=== PATIENT | male | born 1930 | race Caucasian/White ===

== ENCOUNTER 2017-01-30 00:20 | Emergency (ER) | payer OTHER ==
[~2017-01-30] VITALS: Ht 170.2 cm; Wt 72.6 kg
--- NOTE | 2017-01-30 00:58 | PHYS DOC ---
Past Medical History Past Medical History: Hypertension Past Surgical History: No Surgical History Alcohol Use: None Drug Use: None Adult General Chief Complaint Chief Complaint: ABRASION HPI HPI Patient is a 86 year old male who was walking up a stair with his groceries in his hand when he actually lost his footing slipped and falling down one or 2 stairs landing on his gluteus john but tearing his skin on his elbow and left hand. Bleeding was well-controlled with direct pressure patient denies any loss of conscious, headache, neck pain or other symptoms. He has no blood thinning medications but he does live by himself. He is in good spirits complains of no pain or minimal pain over the injuries to his hands. His tetanus shot is not up-to-date. [place] Head CT rule not be used to make this patient a low risk because he is outside the H window appropriate for a screening. Patient will have a head CT completed , tetanus shot updated the wounds were cleaned and repaired. Review of Systems Review of Systems Constitutional: Denies fever or chills [] Eyes: Denies change in visual acuity, redness, or eye pain [] HENT: Denies nasal congestion or sore throat [] Respiratory: Denies cough or shortness of breath [] Cardiovascular: No additional information not addressed in HPI [] GI: Denies abdominal pain, nausea, vomiting, bloody stools or diarrhea [] : Denies dysuria or hematuria [] Musculoskeletal: Denies back pain or joint pain [] Integument: Denies rash or skin lesions [] Neurologic: Denies headache, focal weakness or sensory changes [] Endocrine: Denies polyuria or polydipsia [] Current Medications Current Medications Current Medications Medications (Trade) Dose Ordered Sig/Miguel Start Time Stop Time Status Last Admin Dose Admin Diphtheria/ Tetanus/Acell Pertussis (Boostrix) 0.5 ml ONCE ONCE 01/30/17 01:00 01/30/17 01:01 DC 01/30/17 01:39 0.5 ML Lidocaine HCl 20 ml 1X ONCE 01/30/17 01:00 01/30/17 01:01 DC 01/30/17 01:00 20 ML Allergies Allergies Allergies Coded Allergies Type Severity Reaction Last Updated Verified No Known Drug Allergies 01/30/17 No Physical Exam Physical Exam Noted hypertension Constitutional: Well developed, well nourished, no acute distress, non-toxic appearance. [] HENT: Normocephalic, atraumatic, bilateral external ears normal, oropharynx moist, no oral exudates, nose normal. [] Eyes: PERRLA, EOMI, conjunctiva normal, no discharge. [] Neck: Normal range of motion, no tenderness, supple, no stridor. [] Cardiovascular:Heart rate regular rhythm, no murmur [] Lungs & Thorax: Bilateral breath sounds clear to auscultation [] Abdomen: Bowel sounds normal, soft, no tenderness, no masses, no pulsatile masses. [] Skin: He has multiple skin tears at the elbow, left forearm, and the dorsum of the hand. He has a small skin laceration elliptical nature over the dorsum of the left hand involving the but only exposing the extensor carpi ulnaris . Through full range of motion the tendon is intact at a no numbness tingling to the hand and no weakness extension of the fingertips. Patient has normal sensation to light touch proprioception over the entire hand including the lumbricals. Patient has a small abrasion to the olecranon with no bony tenderness to palpation or obvious deformity. [] Back: No tenderness, no CVA tenderness. [] Extremities: No tenderness, no cyanosis, no clubbing, ROM intact, no edema. [] Neurologic: Alert and oriented X 3, normal motor function, normal sensory function, no focal deficits noted. [] Psychologic: Affect normal, judgement normal, mood normal. [] Current Patient Data Vital Signs Vital Signs Date Time Temp Pulse Resp B/P (MAP) Pulse Ox O2 Delivery O2 Flow Rate FiO2 01/30/17 00:41 98.6 61 16 238/99 (145) 97 Room Air 98.6 EKG EKG [] Radiology/Procedures Radiology/Procedures [] [facility] [address] [place], [place] [id number] IMAGING REPORT Signed PATIENT: PAULA DAILY ACCOUNT: [id number] : 1930 LOCATION: ER AGE: 86 SEX: M EXAM STATUS: REG ER ORD. PHYSICIAN: RADHA DUMONT MD REASON: fall; HEAD PAIN X TONIGHT PROCEDURE: CT HEAD WO CONTRAST INDICATION: pt fell; head pain COMPARISON: None. TECHNIQUE: Axial CT images obtained through the head without intravenous contrast. One or more of the following individualized dose reduction techniques were utilized for this examination: 1. Automated exposure control; 2. Adjustment of the mA and/or kV according to patient size; 3. Use of iterative reconstruction technique. FINDINGS: No intracranial hemorrhage. No midline shift. Basal cisterns patents. Ventricles and sulci are globally prominent. No acute osseous abnormality. Orbits and paranasal sinuses unremarkable. Scattered foci of low attenuation within the white matter. IMPRESSION: 1. No acute intracranial hemorrhage. 2. Scattered regions of low attenuation within the white matter. Non-specific in nature but frequently secondary to chronic small vessel ischemic disease. 3. Prominence of ventricles and sulci which is frequently secondary to age related volume loss. Electronically signed by: Rachael Mi MD (01/30/2017 1:41 AM) DICTATED and SIGNED BY: RACHAEL MI MD DATE: 01/30/17 0134 CC: RADHA DUMONT MD; NO PCP ~ 3 view hand film timed 1:12 AM 01/30/[address] Dumont demonstrates no subcutaneous days air there is a skin deficit over the middle portion of the fifth medic carpal no obvious foreign body no fracture of the joint or bone. Course & Med Decision Making Course & Med Decision Making Pertinent Labs and Imaging studies reviewed. (See chart for details) Reviewed patient's nursing notes, vital signs, the skin has had an x-ray of his hand as well as repair of his skin by the nurse practitioner. Patient is comfortable walking without issue vital signs are normal neuro exam is normal patient will be given precautions after a fall from standing. Impression: Hand laceration repaired with sutures, skin tears, long-standing hypertension. Disposition: PCP follow-up for suture removal in 10-14 days fall precautions given [] Dragon Disclaimer Dragon Disclaimer This electronic medical record was generated, in whole or in part, using a voice recognition dictation system. Departure Departure Impression: Primary Impression: Fall from standing Additional Impressions: Skin tear of elbow without complication Skin tear of hand without complication Skin tear of forearm without complication Laceration Disposition: HOME, SELF-CARE Condition: IMPROVED Referrals: NO PCP (PCP) Patient Instructions: Fall Prevention and Home Safety, Laceration Care, Adult, Skin Tear Care Additional Instructions: Please return for any signs of infection or if you have any questions or concerns. Please return for any headache change in mental status or feel any question concerns about your care. He sutures will need to be removed in 10-14 days by her primary care doctor or he may return here we will evaluate the wound and move the sutures for you if you are not able to arrange follow-up. Scripts Bacitracin (Bacitracin) 28.4 Gm Oint...g. 28.4 GM TP TID for 7 Days, [facility] Prov: RADHA DUMONT MD 01/30/17 Laceration/Wound Repair Laceration/Wound Repair : Wound Location: upper extremity Wound's Depth, Shape: superficial Wound Length (cm): 3 Wound Explored: clean Irrigated w/ Saline (ccs): 250 Betadine Prep?: Yes Volume Anesthetic (ccs): 4 Wound Repaired With: sutures Suture Size/Type: 5:0, nylon Number of Sutures: 4 Progress Left hand laceration noted over the fifth metacarpal area was injected with 2% lidocaine plain with approximately 3-4 mL. Site had been irrigated with 250 mL of normal saline. 5-0 nylon was used to suture the area with 4 interrupted sutures placed by Mar Barry NP. Patient tolerated the procedure well. Dressing applied by nursing staff. Problem Qualifiers RADHA DUMONT MD Jan 30, 2017 00:58 NATA BARRY APRN Jan 30, 2017 01:29
[2017-01-30] MEDS ORDERED: LIDOCAINE 2% 20 ML VIAL. IJ ONE (01:00)
[2017-01-30] MEDS ORDERED: DIPHTH,PERTUSS(ACELL),TET TOX 0.5 ML DISP.SYRIN. VAX IM ONE (01:00)
--- NOTE | 2017-01-30 01:45 | RAD ---
INDICATION: pt fell; head pain COMPARISON: None. TECHNIQUE: Axial CT images obtained through the head without intravenous contrast. One or more of the following individualized dose reduction techniques were utilized for this examination: 1. Automated exposure control; 2. Adjustment of the mA and/or kV according to patient size; 3. Use of iterative reconstruction technique. FINDINGS: No intracranial hemorrhage. No midline shift. Basal cisterns patents. Ventricles and sulci are globally prominent. No acute osseous abnormality. Orbits and paranasal sinuses unremarkable. Scattered foci of low attenuation within the white matter. IMPRESSION: 1. No acute intracranial hemorrhage. 2. Scattered regions of low attenuation within the white matter. Non-specific in nature but frequently secondary to chronic small vessel ischemic disease. 3. Prominence of ventricles and sulci which is frequently secondary to age related volume loss. Electronically signed by: Tre Heredia MD (01/30/2017 1:41 AM)
[2017-01-30] MEDS ORDERED: BACI28.43 TP (02:13)
[2017-01-30 02:30] VITALS: BP 223/86
--- NOTE | 2017-01-30 07:29 | RAD ---
Left hand, 3 views, 01/30/2017: History: Fall, pain, abrasion There are mild degenerative changes at scattered in the phalangeal joints and the first CMC joint. No acute fracture or dislocation is identified. There is mild soft tissue deformity in the metacarpal region near the fifth metacarpal. IMPRESSION: No acute bony abnormality is detected.
== END 2017-01-30 02:34 | disposition home or self-care (01) ==
LOC: ER 00:20
DX: S61.412A Laceration without foreign body of left hand, initial encounter (principal); S51.012A Laceration without foreign body of left elbow, initial encounter; S51.812A Laceration without foreign body of left forearm, initial encounter; I10 Essential (primary) hypertension; W10.9XXA Fall (on) (from) unspecified stairs and steps, initial encounter; Y93.01 Activity, walking, marching and hiking; Y92.89 Other specified places as the place of occurrence of the external cause; Y99.8 Other external cause status
CPT/HCPCS: 12002; 70450; 73130; 90471; 90715; 99284-25

== ENCOUNTER 2017-02-12 15:39 | Emergency (ER) | payer MEDICARE, OTHER ==
[~2017-02-12] VITALS: Ht 167.6 cm; Wt 72.6 kg
[~2017-02-12 15:39] MED LIST: BACI28.43 TP
[2017-02-12 15:51] VITALS: BP 154/72
--- NOTE | 2017-02-12 16:01 | PHYS DOC ---
Past Medical History Past Medical History: Hypertension Past Surgical History: No Surgical History Alcohol Use: None Drug Use: None Adult General Chief Complaint Chief Complaint: SUTURE/STAPLE REMOVAL HPI HPI Patient is a 86 year old male who presents today with for suture removal from the left hand. Patient states he has had the sutures since January 30, 2017. Review of Systems Review of Systems Constitutional: Denies fever or chills [] Eyes: Denies change in visual acuity, redness, or eye pain [] Musculoskeletal: Denies back pain or joint pain [] Integument: suture removal from the left hand Neurologic: Denies headache, focal weakness or sensory changes [] Endocrine: Denies polyuria or polydipsia [] Allergies Allergies Allergies Coded Allergies Type Severity Reaction Last Updated Verified No Known Drug Allergies 01/30/17 No Physical Exam Physical Exam Constitutional: Well developed, well nourished, no acute distress, non-toxic appearance. [] Skin: Left dorsal hand with a scabbed over laceration site. Laceration site is well approximated. There is no signs of infection over the laceration site. The laceration site has what appears to be 3 sutures. Back: No tenderness, no CVA tenderness. [] Extremities: No tenderness, no cyanosis, no clubbing, ROM intact, no edema. [] Neurologic: Alert and oriented X 3, normal motor function, normal sensory function, no focal deficits noted. [] Psychologic: Affect normal, judgement normal, mood normal. [] EKG EKG [] Radiology/Procedures Radiology/Procedures [] Course & Med Decision Making Course & Med Decision Making Pertinent Labs and Imaging studies reviewed. (See chart for details) I removed three sutures from patient's dorsal left hand. Laceration site is well approximated, no signs of infection. Patient is to follow-up with the primary care doctor as needed. Dragon Disclaimer Dragon Disclaimer This electronic medical record was generated, in whole or in part, using a voice recognition dictation system. Departure Departure Impression: Primary Impression: Visit for suture removal Disposition: 01 HOME, SELF-CARE Condition: STABLE Referrals: NO PCP (PCP) follow up with your doctor as needed Patient Instructions: Suture Removal-Brief Additional Instructions: We removed stitches from your left hand. Keep the area clean and dry, do not cover the area and the seats draining. Continue putting triple antibiotic ointment to the area twice a day. MUTUNGA,TIFFANIE EMERGENCY PLANNER Feb 12, 2017 16:01
== END 2017-02-12 16:13 | disposition home or self-care (01) ==
LOC: ER 15:39
DX: S61.412D Laceration without foreign body of left hand, subsequent encounter (principal); I10 Essential (primary) hypertension; X58.XXXD Exposure to other specified factors, subsequent encounter; Y92.89 Other specified places as the place of occurrence of the external cause; Y99.8 Other external cause status
CPT/HCPCS: 99281

== ENCOUNTER 2018-05-19 14:42 | Inpatient (IN) | payer MEDICARE, OTHER ==
[~2018-05-19] VITALS: Ht 170.2 cm; Wt 70.3 kg
--- NOTE | 2018-05-19 15:07 | PHYS DOC ---
Past Medical History Past Medical History: Hypertension Past Surgical History: No Surgical History Alcohol Use: None Drug Use: None Adult General Chief Complaint Chief Complaint: COUGH HPI HPI Patient is a 87 year old male with a history of HTN presents to the ED complaining of cough x 1.5 weeks. States the cough is productive. States he has been taking otc medications without improvement. Associated symptoms include subjective fever, sore throat and ear pain. Denies weakness, dizziness, rash, chest pain, abdominal pain, nausea/vomiting, blood in stool or diarrhea. Review of Systems Review of Systems Constitutional: Complains of subjective fever. Denies chills [] Eyes: Denies change in visual acuity, redness, or eye pain [] HENT: Complains of congestion and sore throat. Respiratory: Complains of cough. Denies shortness of breath. Cardiovascular: No additional information not addressed in HPI [] GI: Denies abdominal pain, nausea, vomiting, bloody stools or diarrhea [] : Denies dysuria or hematuria [] Musculoskeletal: Denies back pain or joint pain [] Integument: Denies rash or skin lesions [] Neurologic: Denies headache, focal weakness or sensory changes [] All other systems were reviewed and found to be within normal limits, except as documented in this note. Current Medications Current Medications Allergies Allergies Allergies Coded Allergies Type Severity Reaction Last Updated Verified No Known Drug Allergies 01/30/17 No Physical Exam Physical Exam Constitutional: Well developed, well nourished, no acute distress, non-toxic appearance. [] HENT: Normocephalic, atraumatic, bilateral external ears normal, oropharynx moist, no oral exudates, nose normal. [] Eyes: PERRLA, EOMI, conjunctiva normal, no discharge. [] Neck: Normal range of motion, no tenderness, supple, no stridor. [] Cardiovascular:Heart rate regular rhythm, no murmur [] Lungs & Thorax: Bilateral breath sounds clear to auscultation. productive cough. [] Abdomen: Bowel sounds normal, soft, no tenderness, no masses, no pulsatile masses. [] Skin: Warm, dry, no erythema, no rash. [] Back: No tenderness, no CVA tenderness. [] Extremities: No tenderness, no cyanosis, no clubbing, ROM intact, no edema. [] Neurologic: Alert and oriented X 3, normal motor function, normal sensory function, no focal deficits noted. [] Psychologic: Affect normal, judgement normal, mood normal. [] Current Patient Data Vital Signs Vital Signs Date Time Temp Pulse Resp B/P (MAP) Pulse Ox O2 Delivery O2 Flow Rate FiO2 05/19/18 16:30 72 16 127/57 (80) 95 Room Air 05/19/18 14:45 98.3 98.3 Lab Values Laboratory Tests Test 05/19/18 15:35 White Blood Count 15.1 x10^3/uL (4.0-11.0) H Red Blood Count 3.44 x10^6/uL (4.30-5.70) L Hemoglobin 10.9 g/dL (13.0-17.5) L Hematocrit 31.3 % (39.0-53.0) L Mean Corpuscular Volume 91 fL (79-100) Mean Corpuscular Hemoglobin 32 pg (25-35) Mean Corpuscular Hemoglobin Concent 35 g/dL (31-37) Red Cell Distribution Width 12.8 % (11.5-14.5) Platelet Count 239 x10^3/uL (140-400) Neutrophils (%) (Auto) 83 % (31-73) H Lymphocytes (%) (Auto) 7 % (24-48) L Monocytes (%) (Auto) 9 % (0-9) Eosinophils (%) (Auto) 1 % (0-3) Basophils (%) (Auto) 0 % (0-3) Neutrophils # (Auto) 12.6 x10^3uL (1.8-7.7) H Lymphocytes # (Auto) 1.1 x10^3/uL (1.0-4.8) Monocytes # (Auto) 1.3 x10^3/uL (0.0-1.1) H Eosinophils # (Auto) 0.1 x10^3/uL (0.0-0.7) Basophils # (Auto) 0.1 x10^3/uL (0.0-0.2) Segmented Neutrophils % 82 % (35-66) H Band Neutrophils % 3 % (0-9) Lymphocytes % 8 % (24-48) L Monocytes % 5 % (0-10) Eosinophils % 2 % (0-5) Platelet Estimate Adequate (ADEQUATE) Sodium Level 134 mmol/L (136-145) L Potassium Level 4.2 mmol/L (3.5-5.1) Chloride Level 98 mmol/L (98-107) Carbon Dioxide Level 22 mmol/L (21-32) Anion Gap 14 (6-14) Blood Urea Nitrogen 47 mg/dL (8-26) H Creatinine 2.4 mg/dL (0.7-1.3) H Estimated GFR (Cockcroft-Gault) 25.8 BUN/Creatinine Ratio 20 (6-20) Glucose Level 130 mg/dL (70-99) H Calcium Level 8.3 mg/dL (8.5-10.1) L Total Bilirubin 0.9 mg/dL (0.2-1.0) Aspartate Amino Transferase (AST) 17 U/L (15-37) Alanine Aminotransferase (ALT) 20 U/L (16-63) Alkaline Phosphatase 91 U/L (46-116) Troponin I Quantitative < 0.017 ng/mL (0.000-0.055) Total Protein 5.7 g/dL (6.4-8.2) L Albumin 2.5 g/dL (3.4-5.0) L Albumin/Globulin Ratio 0.8 (1.0-1.7) L Lipase 80 U/L (73-393) Laboratory Tests 05/19/18 15:35 Laboratory Tests 05/19/18 15:35 EKG EKG [] Radiology/Procedures Radiology/Procedures REASON: pneumonia PROCEDURE: CHEST AP ONLY Portable chest, 05/19/2018: HISTORY: Pneumonia, shortness of breath No previous chest radiographs are available at this time for comparison purposes. The heart size and pulmonary vascularity are normal. There is calcific plaquing the aorta. There is scarring over the pulmonary apices. Minimal hazy atelectasis/infiltrate is present in the right base. The left lung is clear. There is no evidence of pleural fluid. IMPRESSION: Minimal right basilar atelectasis/infiltrate. [] Course & Med Decision Making Course & Med Decision Making Pertinent Labs and Imaging studies reviewed. (See chart for details) Rocephin and doxycycline given in the ED. Patient well appearing. Will admit for pneumonia and TU evaluation. Discussed case with hospitalist, Dr. Mcallister. Agrees to admission and further management of patient. Patient stable for admission. Dragon Disclaimer Dragon Disclaimer This electronic medical record was generated, in whole or in part, using a voice recognition dictation system. Departure Departure Impression: Primary Impression: Pneumonia Disposition: ADMITTED INPATIENT Admitting Physician: Victoriano Sapp Condition: STABLE Referrals: NO PCP (PCP) IDALMIS CAMPBELL May 19, 2018 15:07
[2018-05-19 15:52] LABS: BASO # 0.1 x10^3/uL (0.0-0.2); BASO % 0 % (0-3); EOS # 0.1 x10^3/uL (0.0-0.7); EOS % 1 % (0-3); HEMATOCRIT 31.3 % (39.0-53.0); HEMOGLOBIN 10.9 g/dL (13.0-17.5); LYMPH # 1.1 x10^3/uL (1.0-4.8); LYMPH % 7 % (24-48); MEAN CORPUSCULAR HEMOGLOBIN 32 pg (25-35); MEAN CORPUSCULAR HGB CONC 35 g/dL (31-37); MEAN CORPUSCULAR VOLUME 91 fL (79-100); MONO # 1.3 x10^3/uL (0.0-1.1); MONO % 9 % (0-9); NEUT # 12.6 x10^3uL (1.8-7.7); NEUT % 83 % (31-73); PLATELET COUNT 239 x10^3/uL (140-400); RED BLOOD COUNT 3.44 x10^6/uL (4.30-5.70); RED CELL DISTRIBUTION WIDTH 12.8 % (11.5-14.5); WHITE BLOOD COUNT 15.1 x10^3/uL (4.0-11.0)
--- NOTE | 2018-05-19 16:03 | RAD ---
Portable chest, 05/19/2018: HISTORY: Pneumonia, shortness of breath No previous chest radiographs are available at this time for comparison purposes. The heart size and pulmonary vascularity are normal. There is calcific plaquing the aorta. There is scarring over the pulmonary apices. Minimal hazy atelectasis/infiltrate is present in the right base. The left lung is clear. There is no evidence of pleural fluid. IMPRESSION: Minimal right basilar atelectasis/infiltrate. Electronically signed by: Bryan Lawrence MD (05/19/2018 3:59 PM) [facility]
[2018-05-19 16:04] LABS: CALCIUM 8.3 mg/dL (8.5-10.1); CREATININE 2.4 mg/dL (0.7-1.3); GFR 25.8; POTASSIUM 4.2 mmol/L (3.5-5.1)
[2018-05-19 16:10] LABS: ALBUMIN 2.5 g/dL (3.4-5.0); ALBUMIN/GLOBULIN RATIO 0.8 (1.0-1.7); TOTAL BILIRUBIN 0.9 mg/dL (0.2-1.0); TOTAL PROTEIN 5.7 g/dL (6.4-8.2)
--- NOTE | 2018-05-19 16:25 | EKG ---
[facility] [address] [place] [id number] Test Date: 2018-05-19 Test Time: 15:18:02 Pat Name: PAULA DAILY Department: Room: Gender: M Cutting Machine Operator Helper: : 1930 Requested By: IDALMIS CAMPBELL Order Number: [id number] Reading MD: Vidal Grant MD Measurements Intervals [place] Rate: 77 P: 34 ND: 196 QRS: 14 QRSD: 90 T: 41 QT: 366 QTc: 416 Interpretive Statements SINUS RHYTHM Electronically Signed On 05-20-2018 12:28:51 CDT by Vidal Grant MD
[2018-05-19] MEDS ORDERED: ACETAMINOPHEN 325 MG TABLET. PO PRN ×2 (16:45→21:45)
[2018-05-19] MEDS ORDERED: fentaNYL PF VIAL 100 MCG/2 ML VIAL IV PRN (16:45)
[2018-05-19] MEDS ORDERED: DOXYCYCLINE HYCLATE 100 MG in IV DEXTROSE 5% 100ML 100 ML IV ONE (16:45)
[2018-05-19] MEDS ORDERED: ONDANSETRON PF 4 MG/2 ML VIAL. IV PRN ×2 (16:45→21:45)
[2018-05-19 16:49] LABS: % BANDS 3 % (0-9); % EOS 2 % (0-5); % LYMPHS 8 % (24-48); % MONOS 5 % (0-10); % SEGS 82 % (35-66); PLT ESTIMATE ADEQUATE (ADEQUATE)
[2018-05-19 18:25] VITALS: BP 143/52
[2018-05-19 18:25] LABS: INFLUENZA A PATIENT NEGATIVE (NEGATIVE); INFLUENZA B PATIENT NEGATIVE (NEGATIVE)
[2018-05-19] MEDS ORDERED: no home medications (18:49)
[2018-05-19 19:00] VITALS: BP 136/62
[2018-05-19 20:22] LABS: BILIRUBIN,URINE NEGATIVE (NEG); CLARITY,URINE CLEAR; COLOR,URINE YELLOW; NITRITE,URINE NEGATIVE (NEG); PROTEIN,URINE 100 mg/dL (NEG-TRACE)
[2018-05-19 20:35] LABS: SQUAMOUS EPITHELIAL CELL,UR OCC /LPF
[2018-05-19 20:36] LABS: AMORPHOUS SEDIMENT,UR PRESENT /HPF; BACTERIA,URINE FEW /HPF (0-FEW); HYALINE CASTS, URINE MODERATE /HPF; RBC,URINE 0 /HPF (0-2); WBC,URINE OCC /HPF (0-4)
--- NOTE | 2018-05-19 21:28 | PDOC1 ---
History and Physical Date of Admission Date of Admission DATE: 05/19/18 TIME: 21:28 Identification/Chief Complaint Chief Complaint presentED to the ED complaining of cough x 1.5 weeks. cough is productive. he has been taking otc medications without improvement. subjective fever, sore throat and ear pain. Denies weakness, dizziness, rash, chest pain, abdominal pain, nausea/vomiting, blood in stool or diarrhea. 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 GI: No pertinent hx ENT: No pertinent hx Dermatology: No pertinent hx Family History Family History: Hypertension Social History Smoke: No ALCOHOL: none Drugs: None Current Problem List Problem List Problems Medical Problems: (1) Pneumonia Status: Acute Current Medications Current Medications Current Medications Ceftriaxone Sodium 50 ml @ 100 mls/hr 1X ONCE IV Last administered on at 17:03; Start 05/19/18 at 16:45; Stop 05/19/18 at 17:14; Status DC Doxycycline Hyclate 100 mg/ Dextrose 100 ml @ 50 mls/hr 1X ONCE IV Last administered on 05/19/18at 17:38; Start 05/19/18 at 16:45; Stop 05/19/18 at 18:44 ; Status DC Ondansetron HCl (Zofran) 4 mg PRN Q8HRS PRN IV NAUSEA/VOMITING; Start 05/19/18 at 16:45; Stop 05/20/18 at 16:44 Fentanyl Citrate (Fentanyl 2ml Vial) 50 mcg PRN Q2HR PRN IV PAIN; Start at 16:45; Stop 05/20/18 at 16:44 Acetaminophen (Tylenol) 650 mg PRN Q4HRS PRN PO FEVER; Start 05/19/18 at 16:45 ; Stop 05/20/18 at 16:44 Influenza Virus Vaccine (Afluria Trivalent [id number] Syringe) 0.5 ml ONCE ONCE VAX IM Last administered on 05/19/18at 20:07; Start 05/19/18 at 21:00; Stop 05/19/18 at 21:01; Status DC Active Scripts Active Reported [no home medications] Allergies Allergies: Coded Allergies: No Known Drug Allergies (Unverified , 01/30/17) ROS Review of System Review of Systems Review of Systems Constitutional: Complains of subjective fever. NO chills [] Eyes: Denies change in visual acuity, redness, or eye pain [] HENT: Complains of congestion and sore throat. Respiratory: Complains of cough. Denies shortness of breath. Cardiovascular: No additional information not addressed in HPI [] GI: Denies abdominal pain, nausea, vomiting, bloody stools or diarrhea [] : Denies dysuria or hematuria [] Musculoskeletal: Denies back pain or joint pain [] Integument: Denies rash or skin lesions [] Neurologic: Denies headache, focal weakness or sensory changes [] 14 PT systems were reviewed and found to be within normal limits, except as documented General: YES: Fatigue Eyes: No Blurry vision, No Decreased vision, No Double vision, No Dry eyes, No Excessive tearing, No Eye Pain, No Itchy Eyes, No Loss of vision, No Photophobia , No Scotomata, No Uses contacts, No Uses glasses, No Other ENDOCRINE: No: Breast Changes, Galactorrhea, Hair Pattern Changes, Hot Flashes , Malaise/lethargy, Mood Swings, Palpitations, Polydipsia/polyuria, Skin Changes , Temperature Intolerance, Unexpected Weight Changes, Other Physical Exam Physical Exam Physical Exam Physical Exam Constitutional: Well developed, well nourished, no acute distress, non-toxic appearance. [] HENT: Normocephalic, atraumatic, bilateral external ears normal, oropharynx moist, no oral exudates, nose normal. [] Eyes: PERRLA, EOMI, conjunctiva normal, no discharge. [] Neck: Normal range of motion, no tenderness, supple, no stridor. [] Cardiovascular:Heart rate regular rhythm, no murmur [] Lungs & Thorax: Bilateral CRACKLES productive cough. [] Abdomen: Bowel sounds normal, soft, no tenderness, no masses, no pulsatile masses. [] Skin: Warm, dry, no erythema, no rash. [] Back: No tenderness, no CVA tenderness. [] Extremities: No tenderness, no cyanosis, no clubbing, ROM intact, no edema. [] Neurologic: Alert and oriented X 3, normal motor function, normal sensory function, no focal deficits noted. [] Psychologic: Affect normal, judgement normal, mood normal. [] General: Alert, Oriented X3, Cooperative HEENT: Atraumatic, PERRLA Lungs: Other (BASILAR CRACKLES) Heart: other (GR 2/6 KIRAN) Breasts: Not examined Abdomen: Normal bowel sounds, Soft Rectal Exam: not examined Extremities: No cyanosis Skin: No breakdown, No significant lesion Neuro: Normal speech, Cranial nerves 3-12 NL Vitals Vitals Vital Signs Date Time Temp Pulse Resp B/P (MAP) Pulse Ox O2 Delivery O2 Flow Rate FiO2 05/19/18 19:00 97.2 78 18 136/62 (86) 94 Room Air 97.2 Labs Labs Laboratory Tests Test 05/19/18 15:35 05/19/18 17:27 05/19/18 20:08 White Blood Count 15.1 x10^3/uL (4.0-11.0) Red Blood Count 3.44 x10^6/uL (4.30-5.70) Hemoglobin 10.9 g/dL (13.0-17.5) Hematocrit 31.3 % (39.0-53.0) Mean Corpuscular Volume 91 fL (79-100) Mean Corpuscular Hemoglobin 32 pg (25-35) Mean Corpuscular Hemoglobin Concent 35 g/dL (31-37) Red Cell Distribution Width 12.8 % (11.5-14.5) Platelet Count 239 x10^3/uL (140-400) Neutrophils (%) (Auto) 83 % (31-73) Lymphocytes (%) (Auto) 7 % (24-48) Monocytes (%) (Auto) 9 % (0-9) Eosinophils (%) (Auto) 1 % (0-3) Basophils (%) (Auto) 0 % (0-3) Neutrophils # (Auto) 12.6 x10^3uL (1.8-7.7) Lymphocytes # (Auto) 1.1 x10^3/uL (1.0-4.8) Monocytes # (Auto) 1.3 x10^3/uL (0.0-1.1) Eosinophils # (Auto) 0.1 x10^3/uL (0.0-0.7) Basophils # (Auto) 0.1 x10^3/uL (0.0-0.2) Segmented Neutrophils % 82 % (35-66) Band Neutrophils % 3 % (0-9) Lymphocytes % 8 % (24-48) Monocytes % 5 % (0-10) Eosinophils % 2 % (0-5) Platelet Estimate Adequate (ADEQUATE) Sodium Level 134 mmol/L (136-145) Potassium Level 4.2 mmol/L (3.5-5.1) Chloride Level 98 mmol/L (98-107) Carbon Dioxide Level 22 mmol/L (21-32) Anion Gap 14 (6-14) Blood Urea Nitrogen 47 mg/dL (8-26) Creatinine 2.4 mg/dL (0.7-1.3) Estimated GFR (Cockcroft-Gault) 25.8 BUN/Creatinine Ratio 20 (6-20) Glucose Level 130 mg/dL (70-99) Calcium Level 8.3 mg/dL (8.5-10.1) Total Bilirubin 0.9 mg/dL (0.2-1.0) Aspartate Amino Transf (AST/SGOT) 17 U/L (15-37) Alanine Aminotransferase (ALT/SGPT) 20 U/L (16-63) Alkaline Phosphatase 91 U/L (46-116) Troponin I Quantitative < 0.017 ng/mL (0.000-0.055) Total Protein 5.7 g/dL (6.4-8.2) Albumin 2.5 g/dL (3.4-5.0) Albumin/Globulin Ratio 0.8 (1.0-1.7) Lipase 80 U/L (73-393) Influenza Type A Antigen Negative (NEGATIVE) Influenza Type B Antigen Negative (NEGATIVE) Urine Collection Type Unknown Urine Color Yellow Urine Clarity Clear Urine pH 5.0 Urine Specific [place] 1.020 Urine Protein 100 mg/dL (NEG-TRACE) Urine Glucose (UA) Negative mg/dL (NEG) Urine Ketones (Stick) Trace mg/dL (NEG) Urine Blood Trace (NEG) Urine Nitrite Negative (NEG) Urine Bilirubin Negative (NEG) Urine Urobilinogen Dipstick 1.0 mg/dL (0.2 mg/dL) Urine Leukocyte Esterase Negative (NEG) Urine RBC 0 /HPF (0-2) Urine WBC Occ /HPF (0-4) Urine Squamous Epithelial Cells Occ /LPF Urine Amorphous Sediment Present /HPF Urine Bacteria Few /HPF (0-FEW) Urine Hyaline Casts Moderate /HPF Urine Mucus Mod /LPF Laboratory Tests Test 05/19/18 15:35 05/19/18 17:27 05/19/18 20:08 White Blood Count 15.1 x10^3/uL (4.0-11.0) Red Blood Count 3.44 x10^6/uL (4.30-5.70) Hemoglobin 10.9 g/dL (13.0-17.5) Hematocrit 31.3 % (39.0-53.0) Mean Corpuscular Volume 91 fL (79-100) Mean Corpuscular Hemoglobin 32 pg (25-35) Mean Corpuscular Hemoglobin Concent 35 g/dL (31-37) Red Cell Distribution Width 12.8 % (11.5-14.5) Platelet Count 239 x10^3/uL (140-400) Neutrophils (%) (Auto) 83 % (31-73) Lymphocytes (%) (Auto) 7 % (24-48) Monocytes (%) (Auto) 9 % (0-9) Eosinophils (%) (Auto) 1 % (0-3) Basophils (%) (Auto) 0 % (0-3) Neutrophils # (Auto) 12.6 x10^3uL (1.8-7.7) Lymphocytes # (Auto) 1.1 x10^3/uL (1.0-4.8) Monocytes # (Auto) 1.3 x10^3/uL (0.0-1.1) Eosinophils # (Auto) 0.1 x10^3/uL (0.0-0.7) Basophils # (Auto) 0.1 x10^3/uL (0.0-0.2) Segmented Neutrophils % 82 % (35-66) Band Neutrophils % 3 % (0-9) Lymphocytes % 8 % (24-48) Monocytes % 5 % (0-10) Eosinophils % 2 % (0-5) Platelet Estimate Adequate (ADEQUATE) Sodium Level 134 mmol/L (136-145) Potassium Level 4.2 mmol/L (3.5-5.1) Chloride Level 98 mmol/L (98-107) Carbon Dioxide Level 22 mmol/L (21-32) Anion Gap 14 (6-14) Blood Urea Nitrogen 47 mg/dL (8-26) Creatinine 2.4 mg/dL (0.7-1.3) Estimated GFR (Cockcroft-Gault) 25.8 BUN/Creatinine Ratio 20 (6-20) Glucose Level 130 mg/dL (70-99) Calcium Level 8.3 mg/dL (8.5-10.1) Total Bilirubin 0.9 mg/dL (0.2-1.0) Aspartate Amino Transf (AST/SGOT) 17 U/L (15-37) Alanine Aminotransferase (ALT/SGPT) 20 U/L (16-63) Alkaline Phosphatase 91 U/L (46-116) Troponin I Quantitative < 0.017 ng/mL (0.000-0.055) Total Protein 5.7 g/dL (6.4-8.2) Albumin 2.5 g/dL (3.4-5.0) Albumin/Globulin Ratio 0.8 (1.0-1.7) Lipase 80 U/L (73-393) Influenza Type A Antigen Negative (NEGATIVE) Influenza Type B Antigen Negative (NEGATIVE) Urine Collection Type Unknown Urine Color Yellow Urine Clarity Clear Urine pH 5.0 Urine Specific [place] 1.020 Urine Protein 100 mg/dL (NEG-TRACE) Urine Glucose (UA) Negative mg/dL (NEG) Urine Ketones (Stick) Trace mg/dL (NEG) Urine Blood Trace (NEG) Urine Nitrite Negative (NEG) Urine Bilirubin Negative (NEG) Urine Urobilinogen Dipstick 1.0 mg/dL (0.2 mg/dL) Urine Leukocyte Esterase Negative (NEG) Urine RBC 0 /HPF (0-2) Urine WBC Occ /HPF (0-4) Urine Squamous Epithelial Cells Occ /LPF Urine Amorphous Sediment Present /HPF Urine Bacteria Few /HPF (0-FEW) Urine Hyaline Casts Moderate /HPF Urine Mucus Mod /LPF Images Images Portable chest, 05/19/2018: HISTORY: Pneumonia, shortness of breath No previous chest radiographs are available at this time for comparison purposes. The heart size and pulmonary vascularity are normal. There is calcific plaquing the aorta. There is scarring over the pulmonary apices. Minimal hazy atelectasis/infiltrate is present in the right base. The left lung is clear. There is no evidence of pleural fluid. IMPRESSION: Minimal right basilar atelectasis/infiltrate. Electronically signed by: Bryan Lawrence MD (05/19/2018 3:59 PM) [facility] VTE Prophylaxis Ordered VTE Prophylaxis Devices: Yes VTE Pharmacological Prophylaxi: Yes Assessment/Plan Assessment/Plan IMPRESSION Right basilar atelectasis/infiltrate PLAN IV ANTIBIOTICS, ZOSYN, LEVAQUIN 250MG IV Q 24 HRS BLOOD CULT SPUTUM CULT. ALEXSANDRA COVINGTON MD May 19, 2018 21:28
[2018-05-19] MEDS ORDERED: SODIUM PHOSPHATES 19/7GM 133 ML ENEMA. PR PRN (21:45)
[2018-05-19] MEDS ORDERED: ALBUTEROL SULFATE 2.5 MG/3 ML NEBU. NEB PRN (21:45)
[2018-05-19] MEDS ORDERED: 0.9 % SODIUM CHLORIDE 3ML DISP.SYRIN. IV PRN (21:45)
[2018-05-19] MEDS ORDERED: cloNIDine HCL 0.1 MG TABLET PO PRN (21:45)
[2018-05-19] MEDS ORDERED: MAG HYDROX/ALUMINUM HYD/SIMETH 30 ML ORAL.SUSP PO PRN (21:45)
[2018-05-19] MEDS ORDERED: DOCUSATE SODIUM 100 MG CAPSULE. PO PRN (21:45)
[2018-05-19] MEDS ORDERED: PIP/TAZO PER PHARMACY MC PRN (22:00)
[2018-05-19 23:00] VITALS: BP 122/59
[2018-05-19] MEDS: IV NORMAL SALINE 1000ML BAG 1,000 ML IV SCH (23:02)
[2018-05-19] MEDS: PIPERACILLIN/TAZOBACTAM 2.25 GM in IV NORMAL SALINE 50ML 50 ML IV SCH (23:03)
[2018-05-19] MEDS: ENOXAPARIN 30 MG/0.3 ML SYRINGE. SQ SCH (23:05)
[2018-05-20] MEDS: guaiFENesin ORAL 200 MG/10 ML LIQUID. PO PRN ×2 (00:10→18:12)
[2018-05-20 03:00] VITALS: BP 162/61
[2018-05-20] MEDS: PIPERACILLIN/TAZOBACTAM 2.25 GM in IV NORMAL SALINE 50ML 50 ML IV SCH ×4 (03:38→21:42)
[2018-05-20 06:20] LABS: BASO # 0.1 x10^3/uL (0.0-0.2); BASO % 0 % (0-3); EOS # 0.2 x10^3/uL (0.0-0.7); EOS % 1 % (0-3); HEMATOCRIT 30.8 % (39.0-53.0); HEMOGLOBIN 10.7 g/dL (13.0-17.5); LYMPH % 7 % (24-48); MEAN CORPUSCULAR HEMOGLOBIN 32 pg (25-35); MEAN CORPUSCULAR HGB CONC 35 g/dL (31-37); MEAN CORPUSCULAR VOLUME 91 fL (79-100); MONO % 8 % (0-9); NEUT # 11.2 x10^3uL (1.8-7.7); NEUT % 83 % (31-73); PLATELET COUNT 231 x10^3/uL (140-400); RED BLOOD COUNT 3.38 x10^6/uL (4.30-5.70); RED CELL DISTRIBUTION WIDTH 12.9 % (11.5-14.5); WHITE BLOOD COUNT 13.5 x10^3/uL (4.0-11.0)
[2018-05-20 06:49] LABS: ALBUMIN 2.1 g/dL (3.4-5.0); ALBUMIN/GLOBULIN RATIO 0.6 (1.0-1.7); CALCIUM 8.3 mg/dL (8.5-10.1); CREATININE 2.2 mg/dL (0.7-1.3); GFR 28.5; TOTAL BILIRUBIN 0.7 mg/dL (0.2-1.0); TOTAL PROTEIN 5.9 g/dL (6.4-8.2)
[2018-05-20 07:00] VITALS: BP 159/49
[2018-05-20] MEDS: IV NORMAL SALINE 1000ML BAG 1,000 ML IV SCH ×2 (07:45→19:00)
[2018-05-20] MEDS: IPRATRPIUM/ALBUTEROL 0.5/2.5MG 3 ML NEBU. NEB SCH ×4 (08:58→20:30)
[2018-05-20 11:00] VITALS: BP 150/52
--- NOTE | 2018-05-20 11:23 | PDOC2 ---
CONSULT Date of Consult Date of Consult DATE: 05/20/18 TIME: 11:18 Reason for Consult Reason for Consult: RENAL FAILURE Referring Physician Referring Physician: NADYA Identification/Chief Complaint Chief Complaint THIS IS AN 87 YR OLD WITH SOB AND COUGH FOR ABOUT A WEEK. DX NOW WITH RLL PNEUMONIA. NOTED TO HAVE A CR OF ABOUT 2.5. NO KNOW CKD. NO HX OF ANY ISSUES. NO NSAIDS OR NEPHROTOXIN EXPOSURE NOTED. CURRENTLY ON ABX. NO HOME MEDS REPORTED. NO HEMOPTYSIS Source Source: Chart review History of Present Illness Reason for Visit: ABOVE Past Medical History Pulmonary: No pertinent hx GI: Constipation Heme/Onc: No pertinent hx Psych: No pertinent hx Rheumatologic: No pertinent hx Infectious disease: No pertinent hx ENT: No pertinent hx Renal/: No pertinent hx Dermatology: No pertinent hx Family History Family History: Hypertension Social History No ALCOHOL: none Drugs: None Lives: with Family Current Problem List Problem List Problems Medical Problems: (1) Pneumonia Status: Acute Current Medications Current Medications Current Medications Ceftriaxone Sodium 50 ml @ 100 mls/hr 1X ONCE IV Last administered on at 17:03; Start 05/19/18 at 16:45; Stop 05/19/18 at 17:14; Status DC Doxycycline Hyclate 100 mg/ Dextrose 100 ml @ 50 mls/hr 1X ONCE IV Last administered on 05/19/18at 17:38; Start 05/19/18 at 16:45; Stop 05/19/18 at 18:44 ; Status DC Ondansetron HCl (Zofran) 4 mg PRN Q8HRS PRN IV NAUSEA/VOMITING; Start 05/19/18 at 16:45; Stop 05/19/18 at 21:53; Status DC Fentanyl Citrate (Fentanyl 2ml Vial) 50 mcg PRN Q2HR PRN IV PAIN Last administered on 05/20/18at 00:11; Start 05/19/18 at 16:45; Stop 05/20/18 at 16: 44 Acetaminophen (Tylenol) 650 mg PRN Q4HRS PRN PO FEVER; Start 05/19/18 at 16:45 ; Stop 05/19/18 at 21:52; Status DC Influenza Virus Vaccine (Afluria Trivalent [id number] Syringe) 0.5 ml ONCE ONCE VAX IM Last administered on 05/19/18at 20:07; Start 05/19/18 at 21:00; Stop 05/19/18 at 21:01; Status DC Piperacillin Sod/ Tazobactam Sod (Zosyn Per Pharmacy) 1 each PRN DAILY PRN MC SEE COMMENTS; Start 05/19/18 at 22:00 Levofloxacin/ Dextrose 100 ml @ 100 mls/hr Q24H IV ; Start 05/19/18 at 21:45; Status UNV Albuterol/ Ipratropium (Duoneb) 3 ml RTQID NEB Last administered on 05/20/18at 08:58; Start 05/20/18 at 08:00 Enoxaparin Sodium (Lovenox 30mg Syringe) 30 mg Q24H SQ Last administered on 05/19/18at 23:05; Start 05/19/18 at 22:00 Docusate Sodium (Colace) 100 mg PRN DAILY PRN PO CONSTIPATION; Start 05/19/18 at 21:45 Piperacillin Sod/ Tazobactam Sod 2.25 gm/Sodium Chloride 50 ml @ 100 mls/hr Q6H IV Last administered on 05/20/18at 10:30; Start 05/19/18 at 22:00 Sodium Chloride (Normal Saline Flush 3ml) 3 ml QSHIFT PRN IV AFTER MEDS AND BLOOD DRAWS; Start 05/19/18 at 21:45 Sodium Chloride 1,000 ml @ 100 mls/hr Q10H IV Last administered on 05/20/18at 07:45; Start 05/19/18 at 21:45 Ondansetron HCl (Zofran) 4 mg PRN Q4HRS PRN IV NAUSEA/VOMITING; Start 05/19/18 at 21:45 Acetaminophen (Tylenol) 650 mg PRN Q4HRS PRN PO TEMP OVER 100.4F OR MILD PAIN; Start 05/19/18 at 21:45 Al Hydroxide/Mg Hydroxide (Mylanta Plus Xs) 30 ml PRN DAILY PRN PO HEARTBURN / GAS; Start 05/19/18 at 21:45 Clonidine HCl (Catapres) 0.1 mg PRN Q6HRS PRN PO SBP>160 OR DBP>90; Start 05/19 at 21:45 Sodium Monofluorophosphate (Fleet Adult) 133 ml PRN DAILY PRN DC CONSTIPATION; Start 05/19/18 at 21:45 Albuterol Sulfate (Ventolin Neb Soln) 2.5 mg PRN Q4HRS PRN NEB SHORTNESS OF BREATH; Start 05/19/18 at 21:45 Guaifenesin (Robitussin) 200 mg PRN Q4HRS PRN PO COUGH Last administered on 05/28at 00:10; Start 05/19/18 at 21:45 Active Scripts Active Reported [no home medications] Allergies Allergies: Coded Allergies: No Known Drug Allergies (Unverified , 01/30/17) ROS Review of System FULL ROS NEG EXCEPT IN HPI Physical Exam General: Alert, Oriented X3, Cooperative, No acute distress HEENT: Atraumatic, PERRLA Lungs: Clear to auscultation, Normal air movement Heart: Regular rate, Normal S1 Abdomen: Normal bowel sounds, No tenderness, No hepatosplenomegaly Extremities: No clubbing, No cyanosis Skin: No breakdown Neuro: Normal speech, Cranial nerves 3-12 NL Psych/Mental Status: Mental status NL, Mood NL MUSCULOSKELETAL: No deformity, No swelling Vitals VITALS Vital Signs Date Time Temp Pulse Resp B/P (MAP) Pulse Ox O2 Delivery O2 Flow Rate FiO2 05/20/18 09:07 94 Room Air 05/20/18 07:00 98.6 78 18 159/49 (85) 98.6 Labs Labs Laboratory Tests Test 05/19/18 15:35 05/19/18 17:27 05/19/18 20:08 05/20/18 05:19 White Blood Count 15.1 x10^3/uL (4.0-11.0) 13.5 x10^3/uL (4.0-11.0) Red Blood Count 3.44 x10^6/uL (4.30-5.70) 3.38 x10^6/uL (4.30-5.70) Hemoglobin 10.9 g/dL (13.0-17.5) 10.7 g/dL (13.0-17.5) Hematocrit 31.3 % (39.0-53.0) 30.8 % (39.0-53.0) Mean Corpuscular Volume 91 fL (79-100) 91 fL (79-100) Mean Corpuscular Hemoglobin 32 pg (25-35) 32 pg (25-35) Mean Corpuscular Hemoglobin Concent 35 g/dL (31-37) 35 g/dL (31-37) Red Cell Distribution Width 12.8 % (11.5-14.5) 12.9 % (11.5-14.5) Platelet Count 239 x10^3/uL (140-400) 231 x10^3/uL (140-400) Neutrophils (%) (Auto) 83 % (31-73) 83 % (31-73) Lymphocytes (%) (Auto) 7 % (24-48) 7 % (24-48) Monocytes (%) (Auto) 9 % (0-9) 8 % (0-9) Eosinophils (%) (Auto) 1 % (0-3) 1 % (0-3) Basophils (%) (Auto) 0 % (0-3) 0 % (0-3) Neutrophils # (Auto) 12.6 x10^3uL (1.8-7.7) 11.2 x10^3uL (1.8-7.7) Lymphocytes # (Auto) 1.1 x10^3/uL (1.0-4.8) 1.0 x10^3/uL (1.0-4.8) Monocytes # (Auto) 1.3 x10^3/uL (0.0-1.1) 1.0 x10^3/uL (0.0-1.1) Eosinophils # (Auto) 0.1 x10^3/uL (0.0-0.7) 0.2 x10^3/uL (0.0-0.7) Basophils # (Auto) 0.1 x10^3/uL (0.0-0.2) 0.1 x10^3/uL (0.0-0.2) Segmented Neutrophils % 82 % (35-66) Band Neutrophils % 3 % (0-9) Lymphocytes % 8 % (24-48) Monocytes % 5 % (0-10) Eosinophils % 2 % (0-5) Platelet Estimate Adequate (ADEQUATE) Sodium Level 134 mmol/L (136-145) 135 mmol/L (136-145) Potassium Level 4.2 mmol/L (3.5-5.1) 4.0 mmol/L (3.5-5.1) Chloride Level 98 mmol/L (98-107) 102 mmol/L (98-107) Carbon Dioxide Level 22 mmol/L (21-32) 21 mmol/L (21-32) Anion Gap 14 (6-14) 12 (6-14) Blood Urea Nitrogen 47 mg/dL (8-26) 42 mg/dL (8-26) Creatinine 2.4 mg/dL (0.7-1.3) 2.2 mg/dL (0.7-1.3) Estimated GFR (Cockcroft-Gault) 25.8 28.5 BUN/Creatinine Ratio 20 (6-20) 19 (6-20) Glucose Level 130 mg/dL (70-99) 116 mg/dL (70-99) Calcium Level 8.3 mg/dL (8.5-10.1) 8.3 mg/dL (8.5-10.1) Total Bilirubin 0.9 mg/dL (0.2-1.0) 0.7 mg/dL (0.2-1.0) Aspartate Amino Transf (AST/SGOT) 17 U/L (15-37) 18 U/L (15-37) Alanine Aminotransferase (ALT/SGPT) 20 U/L (16-63) 19 U/L (16-63) Alkaline Phosphatase 91 U/L (46-116) 83 U/L (46-116) Troponin I Quantitative < 0.017 ng/mL (0.000-0.055) Total Protein 5.7 g/dL (6.4-8.2) 5.9 g/dL (6.4-8.2) Albumin 2.5 g/dL (3.4-5.0) 2.1 g/dL (3.4-5.0) Albumin/Globulin Ratio 0.8 (1.0-1.7) 0.6 (1.0-1.7) Lipase 80 U/L (73-393) Influenza Type A Antigen Negative (NEGATIVE) Influenza Type B Antigen Negative (NEGATIVE) Urine Collection Type Unknown Urine Color Yellow Urine Clarity Clear Urine pH 5.0 Urine Specific [place] 1.020 Urine Protein 100 mg/dL (NEG-TRACE) Urine Glucose (UA) Negative mg/dL (NEG) Urine Ketones (Stick) Trace mg/dL (NEG) Urine Blood Trace (NEG) Urine Nitrite Negative (NEG) Urine Bilirubin Negative (NEG) Urine Urobilinogen Dipstick 1.0 mg/dL (0.2 mg/dL) Urine Leukocyte Esterase Negative (NEG) Urine RBC 0 /HPF (0-2) Urine WBC Occ /HPF (0-4) Urine Squamous Epithelial Cells Occ /LPF Urine Amorphous Sediment Present /HPF Urine Bacteria Few /HPF (0-FEW) Urine Hyaline Casts Moderate /HPF Urine Mucus Mod /LPF Laboratory Tests Test 05/19/18 15:35 05/19/18 17:27 05/19/18 20:08 05/20/18 05:19 White Blood Count 15.1 x10^3/uL (4.0-11.0) 13.5 x10^3/uL (4.0-11.0) Red Blood Count 3.44 x10^6/uL (4.30-5.70) 3.38 x10^6/uL (4.30-5.70) Hemoglobin 10.9 g/dL (13.0-17.5) 10.7 g/dL (13.0-17.5) Hematocrit 31.3 % (39.0-53.0) 30.8 % (39.0-53.0) Mean Corpuscular Volume 91 fL (79-100) 91 fL (79-100) Mean Corpuscular Hemoglobin 32 pg (25-35) 32 pg (25-35) Mean Corpuscular Hemoglobin Concent 35 g/dL (31-37) 35 g/dL (31-37) Red Cell Distribution Width 12.8 % (11.5-14.5) 12.9 % (11.5-14.5) Platelet Count 239 x10^3/uL (140-400) 231 x10^3/uL (140-400) Neutrophils (%) (Auto) 83 % (31-73) 83 % (31-73) Lymphocytes (%) (Auto) 7 % (24-48) 7 % (24-48) Monocytes (%) (Auto) 9 % (0-9) 8 % (0-9) Eosinophils (%) (Auto) 1 % (0-3) 1 % (0-3) Basophils (%) (Auto) 0 % (0-3) 0 % (0-3) Neutrophils # (Auto) 12.6 x10^3uL (1.8-7.7) 11.2 x10^3uL (1.8-7.7) Lymphocytes # (Auto) 1.1 x10^3/uL (1.0-4.8) 1.0 x10^3/uL (1.0-4.8) Monocytes # (Auto) 1.3 x10^3/uL (0.0-1.1) 1.0 x10^3/uL (0.0-1.1) Eosinophils # (Auto) 0.1 x10^3/uL (0.0-0.7) 0.2 x10^3/uL (0.0-0.7) Basophils # (Auto) 0.1 x10^3/uL (0.0-0.2) 0.1 x10^3/uL (0.0-0.2) Segmented Neutrophils % 82 % (35-66) Band Neutrophils % 3 % (0-9) Lymphocytes % 8 % (24-48) Monocytes % 5 % (0-10) Eosinophils % 2 % (0-5) Platelet Estimate Adequate (ADEQUATE) Sodium Level 134 mmol/L (136-145) 135 mmol/L (136-145) Potassium Level 4.2 mmol/L (3.5-5.1) 4.0 mmol/L (3.5-5.1) Chloride Level 98 mmol/L (98-107) 102 mmol/L (98-107) Carbon Dioxide Level 22 mmol/L (21-32) 21 mmol/L (21-32) Anion Gap 14 (6-14) 12 (6-14) Blood Urea Nitrogen 47 mg/dL (8-26) 42 mg/dL (8-26) Creatinine 2.4 mg/dL (0.7-1.3) 2.2 mg/dL (0.7-1.3) Estimated GFR (Cockcroft-Gault) 25.8 28.5 BUN/Creatinine Ratio 20 (6-20) 19 (6-20) Glucose Level 130 mg/dL (70-99) 116 mg/dL (70-99) Calcium Level 8.3 mg/dL (8.5-10.1) 8.3 mg/dL (8.5-10.1) Total Bilirubin 0.9 mg/dL (0.2-1.0) 0.7 mg/dL (0.2-1.0) Aspartate Amino Transf (AST/SGOT) 17 U/L (15-37) 18 U/L (15-37) Alanine Aminotransferase (ALT/SGPT) 20 U/L (16-63) 19 U/L (16-63) Alkaline Phosphatase 91 U/L (46-116) 83 U/L (46-116) Troponin I Quantitative < 0.017 ng/mL (0.000-0.055) Total Protein 5.7 g/dL (6.4-8.2) 5.9 g/dL (6.4-8.2) Albumin 2.5 g/dL (3.4-5.0) 2.1 g/dL (3.4-5.0) Albumin/Globulin Ratio 0.8 (1.0-1.7) 0.6 (1.0-1.7) Lipase 80 U/L (73-393) Influenza Type A Antigen Negative (NEGATIVE) Influenza Type B Antigen Negative (NEGATIVE) Urine Collection Type Unknown Urine Color Yellow Urine Clarity Clear Urine pH 5.0 Urine Specific [place] 1.020 Urine Protein 100 mg/dL (NEG-TRACE) Urine Glucose (UA) Negative mg/dL (NEG) Urine Ketones (Stick) Trace mg/dL (NEG) Urine Blood Trace (NEG) Urine Nitrite Negative (NEG) Urine Bilirubin Negative (NEG) Urine Urobilinogen Dipstick 1.0 mg/dL (0.2 mg/dL) Urine Leukocyte Esterase Negative (NEG) Urine RBC 0 /HPF (0-2) Urine WBC Occ /HPF (0-4) Urine Squamous Epithelial Cells Occ /LPF Urine Amorphous Sediment Present /HPF Urine Bacteria Few /HPF (0-FEW) Urine Hyaline Casts Moderate /HPF Urine Mucus Mod /LPF Assessment/Plan Assessment/Plan IMP RLL PNEUMONIA HTN HX RENAL FAILURE-PROB CKD STAGE 3 UA SUGGESTIVE OF CKD BUT CANNOT RULE OUT TU WITH CASTS PLAN ABX IVF'S RENAL SONOGRAM WILL FOLLOW HENRIK MCCALLUM MD May 20, 2018 11:23
--- NOTE | 2018-05-20 12:41 | RAD ---
Renal ultrasound 05/20/2018 INDICATION: Renal failure COMPARISON STUDY: None FINDINGS: Ultrasound evaluation of the kidneys was performed. Static images are submitted to PACS. Right kidney measures 11.1 x 4.8 x 6.6 cm. In the inferior pole of the right kidney there is a simple appearing 1.5 cm cyst. The left kidney measures 11.3 x 4.3 x 6.5 cm. No focal renal lesions are seen on the left. Diffuse renal cortical thinning is seen bilaterally left greater than right. No hydronephrosis or nephrolithiasis is seen involving either kidney. The bladder appears grossly unremarkable. The underlying prostate has an estimated volume of 63 cc. Areas of internal calcification are noted. IMPRESSION: 1. Renal cortical thinning bilaterally possibly affecting chronic renal disease 2. 1.5 cm cyst, inferior pole right kidney 3. Prostamegaly with areas of prostate calcification Electronically signed by: Keny Mcfadden MD (05/20/2018 12:38 PM) [id number]
--- NOTE | 2018-05-20 13:48 | PDOC ---
PROGRESS NOTES Chief Complaint Chief Complaint RLL Pneumonia Hypertension Probable CKD Leukocytosis History of Present Illness History of Present Illness Mr. Baltazar is an 87 year old male who presented with productive cough, SOA and has probable RLL pneumonia. He is on IV antibiotics. His BUN was 42 and Cr 2.2, nephrology is following. Renal sonogram has been ordered. Pulmonology is following for RLL pneumonia. Pt seen and examined Pt alert and oriented; affect appropriate VSS DW nursing Vitals Vitals Vital Signs Date Time Temp Pulse Resp B/P (MAP) Pulse Ox O2 Delivery O2 Flow Rate FiO2 05/20/18 11:32 Room Air 05/20/18 11:00 98.0 75 18 150/52 (84) 93 98.0 Physical Exam General: Alert, Oriented X3, Cooperative, No acute distress Heart: Regular rate, Normal S1 Abdomen: Normal bowel sounds, No tenderness, No hepatosplenomegaly Extremities: No clubbing, No cyanosis Skin: No breakdown Labs LABS Laboratory Tests Test 05/19/18 15:35 05/19/18 17:27 05/19/18 20:08 05/20/18 05:19 White Blood Count 15.1 x10^3/uL (4.0-11.0) 13.5 x10^3/uL (4.0-11.0) Red Blood Count 3.44 x10^6/uL (4.30-5.70) 3.38 x10^6/uL (4.30-5.70) Hemoglobin 10.9 g/dL (13.0-17.5) 10.7 g/dL (13.0-17.5) Hematocrit 31.3 % (39.0-53.0) 30.8 % (39.0-53.0) Mean Corpuscular Volume 91 fL (79-100) 91 fL (79-100) Mean Corpuscular Hemoglobin 32 pg (25-35) 32 pg (25-35) Mean Corpuscular Hemoglobin Concent 35 g/dL (31-37) 35 g/dL (31-37) Red Cell Distribution Width 12.8 % (11.5-14.5) 12.9 % (11.5-14.5) Platelet Count 239 x10^3/uL (140-400) 231 x10^3/uL (140-400) Neutrophils (%) (Auto) 83 % (31-73) 83 % (31-73) Lymphocytes (%) (Auto) 7 % (24-48) 7 % (24-48) Monocytes (%) (Auto) 9 % (0-9) 8 % (0-9) Eosinophils (%) (Auto) 1 % (0-3) 1 % (0-3) Basophils (%) (Auto) 0 % (0-3) 0 % (0-3) Neutrophils # (Auto) 12.6 x10^3uL (1.8-7.7) 11.2 x10^3uL (1.8-7.7) Lymphocytes # (Auto) 1.1 x10^3/uL (1.0-4.8) 1.0 x10^3/uL (1.0-4.8) Monocytes # (Auto) 1.3 x10^3/uL (0.0-1.1) 1.0 x10^3/uL (0.0-1.1) Eosinophils # (Auto) 0.1 x10^3/uL (0.0-0.7) 0.2 x10^3/uL (0.0-0.7) Basophils # (Auto) 0.1 x10^3/uL (0.0-0.2) 0.1 x10^3/uL (0.0-0.2) Segmented Neutrophils % 82 % (35-66) Band Neutrophils % 3 % (0-9) Lymphocytes % 8 % (24-48) Monocytes % 5 % (0-10) Eosinophils % 2 % (0-5) Platelet Estimate Adequate (ADEQUATE) Sodium Level 134 mmol/L (136-145) 135 mmol/L (136-145) Potassium Level 4.2 mmol/L (3.5-5.1) 4.0 mmol/L (3.5-5.1) Chloride Level 98 mmol/L (98-107) 102 mmol/L (98-107) Carbon Dioxide Level 22 mmol/L (21-32) 21 mmol/L (21-32) Anion Gap 14 (6-14) 12 (6-14) Blood Urea Nitrogen 47 mg/dL (8-26) 42 mg/dL (8-26) Creatinine 2.4 mg/dL (0.7-1.3) 2.2 mg/dL (0.7-1.3) Estimated GFR (Cockcroft-Gault) 25.8 28.5 BUN/Creatinine Ratio 20 (6-20) 19 (6-20) Glucose Level 130 mg/dL (70-99) 116 mg/dL (70-99) Calcium Level 8.3 mg/dL (8.5-10.1) 8.3 mg/dL (8.5-10.1) Total Bilirubin 0.9 mg/dL (0.2-1.0) 0.7 mg/dL (0.2-1.0) Aspartate Amino Transf (AST/SGOT) 17 U/L (15-37) 18 U/L (15-37) Alanine Aminotransferase (ALT/SGPT) 20 U/L (16-63) 19 U/L (16-63) Alkaline Phosphatase 91 U/L (46-116) 83 U/L (46-116) Troponin I Quantitative < 0.017 ng/mL (0.000-0.055) Total Protein 5.7 g/dL (6.4-8.2) 5.9 g/dL (6.4-8.2) Albumin 2.5 g/dL (3.4-5.0) 2.1 g/dL (3.4-5.0) Albumin/Globulin Ratio 0.8 (1.0-1.7) 0.6 (1.0-1.7) Lipase 80 U/L (73-393) Influenza Type A Antigen Negative (NEGATIVE) Influenza Type B Antigen Negative (NEGATIVE) Urine Collection Type Unknown Urine Color Yellow Urine Clarity Clear Urine pH 5.0 Urine Specific [place] 1.020 Urine Protein 100 mg/dL (NEG-TRACE) Urine Glucose (UA) Negative mg/dL (NEG) Urine Ketones (Stick) Trace mg/dL (NEG) Urine Blood Trace (NEG) Urine Nitrite Negative (NEG) Urine Bilirubin Negative (NEG) Urine Urobilinogen Dipstick 1.0 mg/dL (0.2 mg/dL) Urine Leukocyte Esterase Negative (NEG) Urine RBC 0 /HPF (0-2) Urine WBC Occ /HPF (0-4) Urine Squamous Epithelial Cells Occ /LPF Urine Amorphous Sediment Present /HPF Urine Bacteria Few /HPF (0-FEW) Urine Hyaline Casts Moderate /HPF Urine Mucus Mod /LPF Review of Systems Review of Systems Complains of productive cough, denies angina. Assessment and Plan Assessmemt and Plan Problems Medical Problems: (1) Pneumonia Status: Acute Assessment: RLL Pneumonia Hypertension Probable CKD;elevated BUN and Cr Leukocytosis Plan: IV antibiotics (zosyn) Breathing treatments F/u pulmonology; appreciate input F/u nephrology; appreciate input Monitor BMP for kidney fxn Labs Home medications Comment Review of Relevant I have reviewed the following items funmilayo (where applicable) has been applied. Labs Laboratory Tests Test 05/19/18 15:35 05/19/18 17:27 05/19/18 20:08 05/20/18 05:19 White Blood Count 15.1 x10^3/uL (4.0-11.0) 13.5 x10^3/uL (4.0-11.0) Red Blood Count 3.44 x10^6/uL (4.30-5.70) 3.38 x10^6/uL (4.30-5.70) Hemoglobin 10.9 g/dL (13.0-17.5) 10.7 g/dL (13.0-17.5) Hematocrit 31.3 % (39.0-53.0) 30.8 % (39.0-53.0) Mean Corpuscular Volume 91 fL (79-100) 91 fL (79-100) Mean Corpuscular Hemoglobin 32 pg (25-35) 32 pg (25-35) Mean Corpuscular Hemoglobin Concent 35 g/dL (31-37) 35 g/dL (31-37) Red Cell Distribution Width 12.8 % (11.5-14.5) 12.9 % (11.5-14.5) Platelet Count 239 x10^3/uL (140-400) 231 x10^3/uL (140-400) Neutrophils (%) (Auto) 83 % (31-73) 83 % (31-73) Lymphocytes (%) (Auto) 7 % (24-48) 7 % (24-48) Monocytes (%) (Auto) 9 % (0-9) 8 % (0-9) Eosinophils (%) (Auto) 1 % (0-3) 1 % (0-3) Basophils (%) (Auto) 0 % (0-3) 0 % (0-3) Neutrophils # (Auto) 12.6 x10^3uL (1.8-7.7) 11.2 x10^3uL (1.8-7.7) Lymphocytes # (Auto) 1.1 x10^3/uL (1.0-4.8) 1.0 x10^3/uL (1.0-4.8) Monocytes # (Auto) 1.3 x10^3/uL (0.0-1.1) 1.0 x10^3/uL (0.0-1.1) Eosinophils # (Auto) 0.1 x10^3/uL (0.0-0.7) 0.2 x10^3/uL (0.0-0.7) Basophils # (Auto) 0.1 x10^3/uL (0.0-0.2) 0.1 x10^3/uL (0.0-0.2) Segmented Neutrophils % 82 % (35-66) Band Neutrophils % 3 % (0-9) Lymphocytes % 8 % (24-48) Monocytes % 5 % (0-10) Eosinophils % 2 % (0-5) Platelet Estimate Adequate (ADEQUATE) Sodium Level 134 mmol/L (136-145) 135 mmol/L (136-145) Potassium Level 4.2 mmol/L (3.5-5.1) 4.0 mmol/L (3.5-5.1) Chloride Level 98 mmol/L (98-107) 102 mmol/L (98-107) Carbon Dioxide Level 22 mmol/L (21-32) 21 mmol/L (21-32) Anion Gap 14 (6-14) 12 (6-14) Blood Urea Nitrogen 47 mg/dL (8-26) 42 mg/dL (8-26) Creatinine 2.4 mg/dL (0.7-1.3) 2.2 mg/dL (0.7-1.3) Estimated GFR (Cockcroft-Gault) 25.8 28.5 BUN/Creatinine Ratio 20 (6-20) 19 (6-20) Glucose Level 130 mg/dL (70-99) 116 mg/dL (70-99) Calcium Level 8.3 mg/dL (8.5-10.1) 8.3 mg/dL (8.5-10.1) Total Bilirubin 0.9 mg/dL (0.2-1.0) 0.7 mg/dL (0.2-1.0) Aspartate Amino Transf (AST/SGOT) 17 U/L (15-37) 18 U/L (15-37) Alanine Aminotransferase (ALT/SGPT) 20 U/L (16-63) 19 U/L (16-63) Alkaline Phosphatase 91 U/L (46-116) 83 U/L (46-116) Troponin I Quantitative < 0.017 ng/mL (0.000-0.055) Total Protein 5.7 g/dL (6.4-8.2) 5.9 g/dL (6.4-8.2) Albumin 2.5 g/dL (3.4-5.0) 2.1 g/dL (3.4-5.0) Albumin/Globulin Ratio 0.8 (1.0-1.7) 0.6 (1.0-1.7) Lipase 80 U/L (73-393) Influenza Type A Antigen Negative (NEGATIVE) Influenza Type B Antigen Negative (NEGATIVE) Urine Collection Type Unknown Urine Color Yellow Urine Clarity Clear Urine pH 5.0 Urine Specific [place] 1.020 Urine Protein 100 mg/dL (NEG-TRACE) Urine Glucose (UA) Negative mg/dL (NEG) Urine Ketones (Stick) Trace mg/dL (NEG) Urine Blood Trace (NEG) Urine Nitrite Negative (NEG) Urine Bilirubin Negative (NEG) Urine Urobilinogen Dipstick 1.0 mg/dL (0.2 mg/dL) Urine Leukocyte Esterase Negative (NEG) Urine RBC 0 /HPF (0-2) Urine WBC Occ /HPF (0-4) Urine Squamous Epithelial Cells Occ /LPF Urine Amorphous Sediment Present /HPF Urine Bacteria Few /HPF (0-FEW) Urine Hyaline Casts Moderate /HPF Urine Mucus Mod /LPF Laboratory Tests Test 05/19/18 15:35 05/19/18 17:27 05/19/18 20:08 05/20/18 05:19 White Blood Count 15.1 x10^3/uL (4.0-11.0) 13.5 x10^3/uL (4.0-11.0) Red Blood Count 3.44 x10^6/uL (4.30-5.70) 3.38 x10^6/uL (4.30-5.70) Hemoglobin 10.9 g/dL (13.0-17.5) 10.7 g/dL (13.0-17.5) Hematocrit 31.3 % (39.0-53.0) 30.8 % (39.0-53.0) Mean Corpuscular Volume 91 fL (79-100) 91 fL (79-100) Mean Corpuscular Hemoglobin 32 pg (25-35) 32 pg (25-35) Mean Corpuscular Hemoglobin Concent 35 g/dL (31-37) 35 g/dL (31-37) Red Cell Distribution Width 12.8 % (11.5-14.5) 12.9 % (11.5-14.5) Platelet Count 239 x10^3/uL (140-400) 231 x10^3/uL (140-400) Neutrophils (%) (Auto) 83 % (31-73) 83 % (31-73) Lymphocytes (%) (Auto) 7 % (24-48) 7 % (24-48) Monocytes (%) (Auto) 9 % (0-9) 8 % (0-9) Eosinophils (%) (Auto) 1 % (0-3) 1 % (0-3) Basophils (%) (Auto) 0 % (0-3) 0 % (0-3) Neutrophils # (Auto) 12.6 x10^3uL (1.8-7.7) 11.2 x10^3uL (1.8-7.7) Lymphocytes # (Auto) 1.1 x10^3/uL (1.0-4.8) 1.0 x10^3/uL (1.0-4.8) Monocytes # (Auto) 1.3 x10^3/uL (0.0-1.1) 1.0 x10^3/uL (0.0-1.1) Eosinophils # (Auto) 0.1 x10^3/uL (0.0-0.7) 0.2 x10^3/uL (0.0-0.7) Basophils # (Auto) 0.1 x10^3/uL (0.0-0.2) 0.1 x10^3/uL (0.0-0.2) Segmented Neutrophils % 82 % (35-66) Band Neutrophils % 3 % (0-9) Lymphocytes % 8 % (24-48) Monocytes % 5 % (0-10) Eosinophils % 2 % (0-5) Platelet Estimate Adequate (ADEQUATE) Sodium Level 134 mmol/L (136-145) 135 mmol/L (136-145) Potassium Level 4.2 mmol/L (3.5-5.1) 4.0 mmol/L (3.5-5.1) Chloride Level 98 mmol/L (98-107) 102 mmol/L (98-107) Carbon Dioxide Level 22 mmol/L (21-32) 21 mmol/L (21-32) Anion Gap 14 (6-14) 12 (6-14) Blood Urea Nitrogen 47 mg/dL (8-26) 42 mg/dL (8-26) Creatinine 2.4 mg/dL (0.7-1.3) 2.2 mg/dL (0.7-1.3) Estimated GFR (Cockcroft-Gault) 25.8 28.5 BUN/Creatinine Ratio 20 (6-20) 19 (6-20) Glucose Level 130 mg/dL (70-99) 116 mg/dL (70-99) Calcium Level 8.3 mg/dL (8.5-10.1) 8.3 mg/dL (8.5-10.1) Total Bilirubin 0.9 mg/dL (0.2-1.0) 0.7 mg/dL (0.2-1.0) Aspartate Amino Transf (AST/SGOT) 17 U/L (15-37) 18 U/L (15-37) Alanine Aminotransferase (ALT/SGPT) 20 U/L (16-63) 19 U/L (16-63) Alkaline Phosphatase 91 U/L (46-116) 83 U/L (46-116) Troponin I Quantitative < 0.017 ng/mL (0.000-0.055) Total Protein 5.7 g/dL (6.4-8.2) 5.9 g/dL (6.4-8.2) Albumin 2.5 g/dL (3.4-5.0) 2.1 g/dL (3.4-5.0) Albumin/Globulin Ratio 0.8 (1.0-1.7) 0.6 (1.0-1.7) Lipase 80 U/L (73-393) Influenza Type A Antigen Negative (NEGATIVE) Influenza Type B Antigen Negative (NEGATIVE) Urine Collection Type Unknown Urine Color Yellow Urine Clarity Clear Urine pH 5.0 Urine Specific [place] 1.020 Urine Protein 100 mg/dL (NEG-TRACE) Urine Glucose (UA) Negative mg/dL (NEG) Urine Ketones (Stick) Trace mg/dL (NEG) Urine Blood Trace (NEG) Urine Nitrite Negative (NEG) Urine Bilirubin Negative (NEG) Urine Urobilinogen Dipstick 1.0 mg/dL (0.2 mg/dL) Urine Leukocyte Esterase Negative (NEG) Urine RBC 0 /HPF (0-2) Urine WBC Occ /HPF (0-4) Urine Squamous Epithelial Cells Occ /LPF Urine Amorphous Sediment Present /HPF Urine Bacteria Few /HPF (0-FEW) Urine Hyaline Casts Moderate /HPF Urine Mucus Mod /LPF Medications Current Medications Ceftriaxone Sodium 50 ml @ 100 mls/hr 1X ONCE IV Last administered on at 17:03; Start 05/19/18 at 16:45; Stop 05/19/18 at 17:14; Status DC Doxycycline Hyclate 100 mg/ Dextrose 100 ml @ 50 mls/hr 1X ONCE IV Last administered on 05/19/18at 17:38; Start 05/19/18 at 16:45; Stop 05/19/18 at 18:44 ; Status DC Ondansetron HCl (Zofran) 4 mg PRN Q8HRS PRN IV NAUSEA/VOMITING; Start 05/19/18 at 16:45; Stop 05/19/18 at 21:53; Status DC Fentanyl Citrate (Fentanyl 2ml Vial) 50 mcg PRN Q2HR PRN IV PAIN Last administered on 05/20/18at 00:11; Start 05/19/18 at 16:45; Stop 05/20/18 at 16: 44 Acetaminophen (Tylenol) 650 mg PRN Q4HRS PRN PO FEVER; Start 05/19/18 at 16:45 ; Stop 05/19/18 at 21:52; Status DC Influenza Virus Vaccine (Afluria Trivalent [id number] Syringe) 0.5 ml ONCE ONCE VAX IM Last administered on 05/19/18at 20:07; Start 05/19/18 at 21:00; Stop 05/19/18 at 21:01; Status DC Piperacillin Sod/ Tazobactam Sod (Zosyn Per Pharmacy) 1 each PRN DAILY PRN MC SEE COMMENTS; Start 05/19/18 at 22:00 Levofloxacin/ Dextrose 100 ml @ 100 mls/hr Q24H IV ; Start 05/19/18 at 21:45; Status UNV Albuterol/ Ipratropium (Duoneb) 3 ml RTQID NEB Last administered on 05/20/18at 11:31; Start 05/20/18 at 08:00 Enoxaparin Sodium (Lovenox 30mg Syringe) 30 mg Q24H SQ Last administered on 05/19/18at 23:05; Start 05/19/18 at 22:00 Docusate Sodium (Colace) 100 mg PRN DAILY PRN PO CONSTIPATION; Start 05/19/18 at 21:45 Piperacillin Sod/ Tazobactam Sod 2.25 gm/Sodium Chloride 50 ml @ 100 mls/hr Q6H IV Last administered on 05/20/18at 10:30; Start 05/19/18 at 22:00 Sodium Chloride (Normal Saline Flush 3ml) 3 ml QSHIFT PRN IV AFTER MEDS AND BLOOD DRAWS; Start 05/19/18 at 21:45 Sodium Chloride 1,000 ml @ 100 mls/hr Q10H IV Last administered on 05/20/18at 07:45; Start 05/19/18 at 21:45 Ondansetron HCl (Zofran) 4 mg PRN Q4HRS PRN IV NAUSEA/VOMITING; Start 05/19/18 at 21:45 Acetaminophen (Tylenol) 650 mg PRN Q4HRS PRN PO TEMP OVER 100.4F OR MILD PAIN; Start 05/19/18 at 21:45 Al Hydroxide/Mg Hydroxide (Mylanta Plus Xs) 30 ml PRN DAILY PRN PO HEARTBURN / GAS; Start 05/19/18 at 21:45 Clonidine HCl (Catapres) 0.1 mg PRN Q6HRS PRN PO SBP>160 OR DBP>90; Start 05/19 at 21:45 Sodium Monofluorophosphate (Fleet Adult) 133 ml PRN DAILY PRN [place] CONSTIPATION; Start 05/19/18 at 21:45 Albuterol Sulfate (Ventolin Neb Soln) 2.5 mg PRN Q4HRS PRN NEB SHORTNESS OF BREATH; Start 05/19/18 at 21:45 Guaifenesin (Robitussin) 200 mg PRN Q4HRS PRN PO COUGH Last administered on 05/28at 00:10; Start 05/19/18 at 21:45 Active Scripts Active Reported [no home medications] Vitals/I & O Vital Sign - Last 24 Hours 05/19/18 05/19/18 05/19/18 05/19/18 14:45 15:30 16:00 16:30 Temp 98.3 98.3 Pulse 85 76 74 72 Resp 24 20 18 16 B/P (MAP) 139/65 (89) 142/63 (89) 151/62 (91) 127/57 (80) Pulse Ox 93 96 95 95 O2 Delivery Room Air Room Air Room Air Room Air 05/19/18 05/19/18 05/19/18 05/19/18 17:00 17:30 18:25 18:35 Temp 96.8 96.8 Pulse 70 72 73 Resp 18 18 18 B/P (MAP) 128/59 (82) 131/60 (83) 143/52 (82) Pulse Ox 96 96 94 O2 Delivery Room Air Room Air Room Air Room Air 05/19/18 05/19/18 05/19/18 05/20/18 19:00 20:00 23:00 00:11 Temp 97.2 97.9 97.2 97.9 Pulse 78 72 Resp 18 20 18 B/P (MAP) 136/62 (86) 122/59 (80) Pulse Ox 94 94 94 O2 Delivery Room Air Room Air Room Air Room Air 05/20/18 05/20/18 05/20/18 05/20/18 00:41 03:00 07:00 08:15 Temp 97.9 98.6 97.9 98.6 Pulse 96 78 Resp 18 20 18 B/P (MAP) 162/61 (94) 159/49 (85) Pulse Ox 94 93 93 O2 Delivery Room Air Room Air Room Air Room Air 05/20/18 05/20/18 05/20/18 09:07 11:00 11:32 Temp 98.0 98.0 Pulse 75 Resp 18 B/P (MAP) 150/52 (84) Pulse Ox 94 93 O2 Delivery Room Air Room Air Room Air Intake and Output 05/19/18 05/19/18 05/20/18 15:00 23:00 07:00 Intake Total 630 ml Output Total 1290 ml Balance -660 ml ZANDER BARTON III DO May 20, 2018 13:48
[2018-05-20 15:00] VITALS: BP 155/50
[2018-05-20] MEDS ORDERED: predniSONE 10 MG TABLET PO ONE (17:15)
[2018-05-20] MEDS ORDERED: diphenhydrAMINE HCL 25 MG CAPSULE PO PRN (17:15)
[2018-05-20] MEDS ORDERED: PROMETH/CODEINE 6.25/10MG 5 ML SYRUP. PO PRN (17:15)
--- NOTE | 2018-05-20 17:17 | PDOC ---
PULMONARY PROGRESS NOTES Vitals Vital Signs Date Time Temp Pulse Resp B/P (MAP) Pulse Ox O2 Delivery O2 Flow Rate FiO2 05/20/18 15:07 Room Air 05/20/18 15:00 98.3 72 18 155/50 (85) 94 98.3 Labs Laboratory Tests Test 05/19/18 15:35 05/19/18 17:27 05/19/18 20:08 05/20/18 05:19 White Blood Count 15.1 x10^3/uL (4.0-11.0) 13.5 x10^3/uL (4.0-11.0) Red Blood Count 3.44 x10^6/uL (4.30-5.70) 3.38 x10^6/uL (4.30-5.70) Hemoglobin 10.9 g/dL (13.0-17.5) 10.7 g/dL (13.0-17.5) Hematocrit 31.3 % (39.0-53.0) 30.8 % (39.0-53.0) Mean Corpuscular Volume 91 fL (79-100) 91 fL (79-100) Mean Corpuscular Hemoglobin 32 pg (25-35) 32 pg (25-35) Mean Corpuscular Hemoglobin Concent 35 g/dL (31-37) 35 g/dL (31-37) Red Cell Distribution Width 12.8 % (11.5-14.5) 12.9 % (11.5-14.5) Platelet Count 239 x10^3/uL (140-400) 231 x10^3/uL (140-400) Neutrophils (%) (Auto) 83 % (31-73) 83 % (31-73) Lymphocytes (%) (Auto) 7 % (24-48) 7 % (24-48) Monocytes (%) (Auto) 9 % (0-9) 8 % (0-9) Eosinophils (%) (Auto) 1 % (0-3) 1 % (0-3) Basophils (%) (Auto) 0 % (0-3) 0 % (0-3) Neutrophils # (Auto) 12.6 x10^3uL (1.8-7.7) 11.2 x10^3uL (1.8-7.7) Lymphocytes # (Auto) 1.1 x10^3/uL (1.0-4.8) 1.0 x10^3/uL (1.0-4.8) Monocytes # (Auto) 1.3 x10^3/uL (0.0-1.1) 1.0 x10^3/uL (0.0-1.1) Eosinophils # (Auto) 0.1 x10^3/uL (0.0-0.7) 0.2 x10^3/uL (0.0-0.7) Basophils # (Auto) 0.1 x10^3/uL (0.0-0.2) 0.1 x10^3/uL (0.0-0.2) Segmented Neutrophils % 82 % (35-66) Band Neutrophils % 3 % (0-9) Lymphocytes % 8 % (24-48) Monocytes % 5 % (0-10) Eosinophils % 2 % (0-5) Platelet Estimate Adequate (ADEQUATE) Sodium Level 134 mmol/L (136-145) 135 mmol/L (136-145) Potassium Level 4.2 mmol/L (3.5-5.1) 4.0 mmol/L (3.5-5.1) Chloride Level 98 mmol/L (98-107) 102 mmol/L (98-107) Carbon Dioxide Level 22 mmol/L (21-32) 21 mmol/L (21-32) Anion Gap 14 (6-14) 12 (6-14) Blood Urea Nitrogen 47 mg/dL (8-26) 42 mg/dL (8-26) Creatinine 2.4 mg/dL (0.7-1.3) 2.2 mg/dL (0.7-1.3) Estimated GFR (Cockcroft-Gault) 25.8 28.5 BUN/Creatinine Ratio 20 (6-20) 19 (6-20) Glucose Level 130 mg/dL (70-99) 116 mg/dL (70-99) Calcium Level 8.3 mg/dL (8.5-10.1) 8.3 mg/dL (8.5-10.1) Total Bilirubin 0.9 mg/dL (0.2-1.0) 0.7 mg/dL (0.2-1.0) Aspartate Amino Transf (AST/SGOT) 17 U/L (15-37) 18 U/L (15-37) Alanine Aminotransferase (ALT/SGPT) 20 U/L (16-63) 19 U/L (16-63) Alkaline Phosphatase 91 U/L (46-116) 83 U/L (46-116) Troponin I Quantitative < 0.017 ng/mL (0.000-0.055) Total Protein 5.7 g/dL (6.4-8.2) 5.9 g/dL (6.4-8.2) Albumin 2.5 g/dL (3.4-5.0) 2.1 g/dL (3.4-5.0) Albumin/Globulin Ratio 0.8 (1.0-1.7) 0.6 (1.0-1.7) Lipase 80 U/L (73-393) Influenza Type A Antigen Negative (NEGATIVE) Influenza Type B Antigen Negative (NEGATIVE) Urine Collection Type Unknown Urine Color Yellow Urine Clarity Clear Urine pH 5.0 Urine Specific [place] 1.020 Urine Protein 100 mg/dL (NEG-TRACE) Urine Glucose (UA) Negative mg/dL (NEG) Urine Ketones (Stick) Trace mg/dL (NEG) Urine Blood Trace (NEG) Urine Nitrite Negative (NEG) Urine Bilirubin Negative (NEG) Urine Urobilinogen Dipstick 1.0 mg/dL (0.2 mg/dL) Urine Leukocyte Esterase Negative (NEG) Urine RBC 0 /HPF (0-2) Urine WBC Occ /HPF (0-4) Urine Squamous Epithelial Cells Occ /LPF Urine Amorphous Sediment Present /HPF Urine Bacteria Few /HPF (0-FEW) Urine Hyaline Casts Moderate /HPF Urine Mucus Mod /LPF Laboratory Tests Test 05/19/18 17:27 05/19/18 20:08 05/20/18 05:19 Influenza Type A Antigen Negative (NEGATIVE) Influenza Type B Antigen Negative (NEGATIVE) Urine Collection Type Unknown Urine Color Yellow Urine Clarity Clear Urine pH 5.0 Urine Specific [place] 1.020 Urine Protein 100 mg/dL (NEG-TRACE) Urine Glucose (UA) Negative mg/dL (NEG) Urine Ketones (Stick) Trace mg/dL (NEG) Urine Blood Trace (NEG) Urine Nitrite Negative (NEG) Urine Bilirubin Negative (NEG) Urine Urobilinogen Dipstick 1.0 mg/dL (0.2 mg/dL) Urine Leukocyte Esterase Negative (NEG) Urine RBC 0 /HPF (0-2) Urine WBC Occ /HPF (0-4) Urine Squamous Epithelial Cells Occ /LPF Urine Amorphous Sediment Present /HPF Urine Bacteria Few /HPF (0-FEW) Urine Hyaline Casts Moderate /HPF Urine Mucus Mod /LPF White Blood Count 13.5 x10^3/uL (4.0-11.0) Red Blood Count 3.38 x10^6/uL (4.30-5.70) Hemoglobin 10.7 g/dL (13.0-17.5) Hematocrit 30.8 % (39.0-53.0) Mean Corpuscular Volume 91 fL (79-100) Mean Corpuscular Hemoglobin 32 pg (25-35) Mean Corpuscular Hemoglobin Concent 35 g/dL (31-37) Red Cell Distribution Width 12.9 % (11.5-14.5) Platelet Count 231 x10^3/uL (140-400) Neutrophils (%) (Auto) 83 % (31-73) Lymphocytes (%) (Auto) 7 % (24-48) Monocytes (%) (Auto) 8 % (0-9) Eosinophils (%) (Auto) 1 % (0-3) Basophils (%) (Auto) 0 % (0-3) Neutrophils # (Auto) 11.2 x10^3uL (1.8-7.7) Lymphocytes # (Auto) 1.0 x10^3/uL (1.0-4.8) Monocytes # (Auto) 1.0 x10^3/uL (0.0-1.1) Eosinophils # (Auto) 0.2 x10^3/uL (0.0-0.7) Basophils # (Auto) 0.1 x10^3/uL (0.0-0.2) Sodium Level 135 mmol/L (136-145) Potassium Level 4.0 mmol/L (3.5-5.1) Chloride Level 102 mmol/L (98-107) Carbon Dioxide Level 21 mmol/L (21-32) Anion Gap 12 (6-14) Blood Urea Nitrogen 42 mg/dL (8-26) Creatinine 2.2 mg/dL (0.7-1.3) Estimated GFR (Cockcroft-Gault) 28.5 BUN/Creatinine Ratio 19 (6-20) Glucose Level 116 mg/dL (70-99) Calcium Level 8.3 mg/dL (8.5-10.1) Total Bilirubin 0.7 mg/dL (0.2-1.0) Aspartate Amino Transf (AST/SGOT) 18 U/L (15-37) Alanine Aminotransferase (ALT/SGPT) 19 U/L (16-63) Alkaline Phosphatase 83 U/L (46-116) Total Protein 5.9 g/dL (6.4-8.2) Albumin 2.1 g/dL (3.4-5.0) Albumin/Globulin Ratio 0.6 (1.0-1.7) Medications Active Scripts Medications Dose Route/Sig Max Daily Dose Days Date Category [no home medications] 05/19/18 Reported Impression . NOTE DICTATED SEE ORDERS PNEUMONIA COUGH THANKS HARRIET LANGLEY MD May 20, 2018 17:17
[2018-05-20] MEDS ORDERED: 0.9 % SODIUM CHLORIDE 10 ML DISP.SYRIN. IV PRN (17:54)
[2018-05-20 19:00] VITALS: BP 144/62
[2018-05-20] MEDS: BENZONATATE 100 MG CAPSULE. PO SCH (20:47)
[2018-05-20] MEDS: DOXYCYCLINE HYCLATE 100 MG TABLET PO SCH (20:47)
[2018-05-20] MEDS: LACTOBACILLUS RHAMNOSUS GG 1 CAPSULE. PO SCH (20:47)
[2018-05-20] MEDS: ENOXAPARIN 30 MG/0.3 ML SYRINGE. SQ SCH (21:42)
[2018-05-20 23:00] VITALS: BP 154/67
[2018-05-21] MEDS: IV NORMAL SALINE 1000ML BAG 1,000 ML IV SCH ×2 (00:05→15:18)
--- NOTE | 2018-05-21 01:54 | CONS ---
DATE OF CONSULTATION: 05/20/2018 ATTENDING PHYSICIAN: Darci Garcia D.O. CONSULTING PHYSICIAN: Harriet Langley M.D. REASON FOR CONSULTATION: The patient seen in pulmonary consultation at the request of Dr. Garcia for cough and shortness of air. HISTORY OF PRESENT ILLNESS: The patient is an 87-year old who when asked why he came in, he states that he had the flu-like symptoms. Cough productive of yellow sputum. No hemoptysis. At times, the sputum turned green. The patient was seen in the Emergency Room complaining of cough x 1-1/2 weeks. He had taken [id number] medication and no significant improvement. He underwent evaluation and had influenza screen, which was negative. UA was noted. Electrolytes were noted. White count was elevated. Hemoglobin and hematocrit were noted. Chest x-ray was obtained. I reviewed the x-ray, which revealed some basilar infiltrates. The patient denies any excessive caffeine intake. PAST MEDICAL HISTORY: Unremarkable. The patient smoked but quit in 1965. He does have a history of hypertension. PAST FAMILY HISTORY: Hypertension. SOCIAL HISTORY: Socially, he quit tobacco in 1965. REVIEW OF SYSTEMS: CONSTITUTIONAL: Subjective fever. Denies chills. EYES: No change in visual acuity. HEAD, EARS, NOSE AND THROAT: No nasal congestion or sore throat. RESPIRATORY: As indicated above. He has had pleurisy in the past. CARDIOVASCULAR: No chest pain. No pressure. GASTROINTESTINAL: No nausea, vomiting or diarrhea. GENITOURINARY: No dysuria or frequency. MUSCULOSKELETAL: No localized muscle aches or joint pains. SKIN: No new skin rashes. NEUROLOGICAL: No headaches, diplopia or blurred vision. CURRENT MEDICATIONs: List was reviewed. HOME MEDICATIONS: List was likewise reviewed. PHYSICAL EXAMINATION: GENERAL: During my evaluation, the patient had severe paroxysmal coughing spells. VITAL SIGNS: He is room air saturation 96%. HEENT: Eyes, the sclerae were nonicteric. NECK: Jugular venous distention was not elevated. No lymphadenopathy. CHEST: Full expansion. LUNGS: Coarse breath sounds with mild expiratory wheeze. CARDIOVASCULAR: Regular rate and rhythm with S1 and S2. No S3. ABDOMEN: Soft, nontender and nondistended. EXTREMITIES: No clubbing, cyanosis or edema. NEUROLOGICAL: The patient was awake, alert and following commands. A detailed neuro exam was not performed. LABORATORY DATA: Labs as indicated above. White count was elevated. Hemoglobin and hematocrit were noted. RADIOLOGICAL DATA: Chest x-ray as indicated above. IMPRESSION: 1. Acute respiratory distress secondary to pneumonia. 2. Pneumonia. 3. Acute bronchitis. 4. Paroxysmal coughing spells. 5. Hypertension. 6. Renal failure. PLAN: 1. Continue Zosyn. 2. Add doxycycline. 3. DVT prophylaxis. 4. Tessalon Perles. 5. Avoid caffeinated beverages. I do appreciate the privilege in sharing in the patient's care. HARRIET LANGLEY MD DR: EVELINA/concepción JOB#: [id number] / [id number]
[2018-05-21 03:00] VITALS: BP 175/69
[2018-05-21] MEDS: PIPERACILLIN/TAZOBACTAM 2.25 GM in IV NORMAL SALINE 50ML 50 ML IV SCH ×4 (03:37→23:52)
[2018-05-21 05:10] LABS: HEMATOCRIT 31.8 % (39.0-53.0); HEMOGLOBIN 11.1 g/dL (13.0-17.5); RED BLOOD COUNT 3.51 x10^6/uL (4.30-5.70); WHITE BLOOD COUNT 11.4 x10^3/uL (4.0-11.0)
[2018-05-21 05:48] LABS: CALCIUM 8.3 mg/dL (8.5-10.1); CREATININE 1.9 mg/dL (0.7-1.3); GFR 33.8
[2018-05-21 07:00] VITALS: BP 167/84
[2018-05-21] MEDS: BENZONATATE 100 MG CAPSULE. PO SCH ×3 (07:32→21:03)
[2018-05-21] MEDS: LACTOBACILLUS RHAMNOSUS GG 1 CAPSULE. PO SCH ×2 (07:32→21:03)
[2018-05-21] MEDS: DOXYCYCLINE HYCLATE 100 MG TABLET PO SCH ×2 (07:32→21:03)
[2018-05-21] MEDS: IPRATRPIUM/ALBUTEROL 0.5/2.5MG 3 ML NEBU. NEB SCH ×4 (07:39→19:51)
[2018-05-21] MEDS: predniSONE 20 MG TABLET PO SCH (08:13)
--- NOTE | 2018-05-21 10:34 | PDOC ---
PULMONARY PROGRESS NOTES Subjective PT FEELS LESS SOA LESS COUGH Vitals Vital Signs Date Time Temp Pulse Resp B/P (MAP) Pulse Ox O2 Delivery O2 Flow Rate FiO2 05/21/18 07:41 96 Room Air 05/21/18 03:00 98.7 82 18 175/69 (104) 98.7 ROS: No Nausea, No Chest Pain, No Abdominal Pain, No Increase Cough General: Alert Lungs: Crackles Cardiovascular: S1 Abdomen: Soft Neuro Exam: Alert Extremities: No Edema Skin: Warm Labs Laboratory Tests Test 05/19/18 15:35 05/19/18 17:27 05/19/18 20:08 05/20/18 05:19 White Blood Count 15.1 x10^3/uL (4.0-11.0) 13.5 x10^3/uL (4.0-11.0) Red Blood Count 3.44 x10^6/uL (4.30-5.70) 3.38 x10^6/uL (4.30-5.70) Hemoglobin 10.9 g/dL (13.0-17.5) 10.7 g/dL (13.0-17.5) Hematocrit 31.3 % (39.0-53.0) 30.8 % (39.0-53.0) Mean Corpuscular Volume 91 fL (79-100) 91 fL (79-100) Mean Corpuscular Hemoglobin 32 pg (25-35) 32 pg (25-35) Mean Corpuscular Hemoglobin Concent 35 g/dL (31-37) 35 g/dL (31-37) Red Cell Distribution Width 12.8 % (11.5-14.5) 12.9 % (11.5-14.5) Platelet Count 239 x10^3/uL (140-400) 231 x10^3/uL (140-400) Neutrophils (%) (Auto) 83 % (31-73) 83 % (31-73) Lymphocytes (%) (Auto) 7 % (24-48) 7 % (24-48) Monocytes (%) (Auto) 9 % (0-9) 8 % (0-9) Eosinophils (%) (Auto) 1 % (0-3) 1 % (0-3) Basophils (%) (Auto) 0 % (0-3) 0 % (0-3) Neutrophils # (Auto) 12.6 x10^3uL (1.8-7.7) 11.2 x10^3uL (1.8-7.7) Lymphocytes # (Auto) 1.1 x10^3/uL (1.0-4.8) 1.0 x10^3/uL (1.0-4.8) Monocytes # (Auto) 1.3 x10^3/uL (0.0-1.1) 1.0 x10^3/uL (0.0-1.1) Eosinophils # (Auto) 0.1 x10^3/uL (0.0-0.7) 0.2 x10^3/uL (0.0-0.7) Basophils # (Auto) 0.1 x10^3/uL (0.0-0.2) 0.1 x10^3/uL (0.0-0.2) Segmented Neutrophils % 82 % (35-66) Band Neutrophils % 3 % (0-9) Lymphocytes % 8 % (24-48) Monocytes % 5 % (0-10) Eosinophils % 2 % (0-5) Platelet Estimate Adequate (ADEQUATE) Sodium Level 134 mmol/L (136-145) 135 mmol/L (136-145) Potassium Level 4.2 mmol/L (3.5-5.1) 4.0 mmol/L (3.5-5.1) Chloride Level 98 mmol/L (98-107) 102 mmol/L (98-107) Carbon Dioxide Level 22 mmol/L (21-32) 21 mmol/L (21-32) Anion Gap 14 (6-14) 12 (6-14) Blood Urea Nitrogen 47 mg/dL (8-26) 42 mg/dL (8-26) Creatinine 2.4 mg/dL (0.7-1.3) 2.2 mg/dL (0.7-1.3) Estimated GFR (Cockcroft-Gault) 25.8 28.5 BUN/Creatinine Ratio 20 (6-20) 19 (6-20) Glucose Level 130 mg/dL (70-99) 116 mg/dL (70-99) Calcium Level 8.3 mg/dL (8.5-10.1) 8.3 mg/dL (8.5-10.1) Total Bilirubin 0.9 mg/dL (0.2-1.0) 0.7 mg/dL (0.2-1.0) Aspartate Amino Transf (AST/SGOT) 17 U/L (15-37) 18 U/L (15-37) Alanine Aminotransferase (ALT/SGPT) 20 U/L (16-63) 19 U/L (16-63) Alkaline Phosphatase 91 U/L (46-116) 83 U/L (46-116) Troponin I Quantitative < 0.017 ng/mL (0.000-0.055) Total Protein 5.7 g/dL (6.4-8.2) 5.9 g/dL (6.4-8.2) Albumin 2.5 g/dL (3.4-5.0) 2.1 g/dL (3.4-5.0) Albumin/Globulin Ratio 0.8 (1.0-1.7) 0.6 (1.0-1.7) Lipase 80 U/L (73-393) Influenza Type A Antigen Negative (NEGATIVE) Influenza Type B Antigen Negative (NEGATIVE) Urine Collection Type Unknown Urine Color Yellow Urine Clarity Clear Urine pH 5.0 Urine Specific [place] 1.020 Urine Protein 100 mg/dL (NEG-TRACE) Urine Glucose (UA) Negative mg/dL (NEG) Urine Ketones (Stick) Trace mg/dL (NEG) Urine Blood Trace (NEG) Urine Nitrite Negative (NEG) Urine Bilirubin Negative (NEG) Urine Urobilinogen Dipstick 1.0 mg/dL (0.2 mg/dL) Urine Leukocyte Esterase Negative (NEG) Urine RBC 0 /HPF (0-2) Urine WBC Occ /HPF (0-4) Urine Squamous Epithelial Cells Occ /LPF Urine Amorphous Sediment Present /HPF Urine Bacteria Few /HPF (0-FEW) Urine Hyaline Casts Moderate /HPF Urine Mucus Mod /LPF Test 05/21/18 04:05 White Blood Count 11.4 x10^3/uL (4.0-11.0) Red Blood Count 3.51 x10^6/uL (4.30-5.70) Hemoglobin 11.1 g/dL (13.0-17.5) Hematocrit 31.8 % (39.0-53.0) Mean Corpuscular Volume 91 fL (79-100) Mean Corpuscular Hemoglobin 32 pg (25-35) Mean Corpuscular Hemoglobin Concent 35 g/dL (31-37) Red Cell Distribution Width 13.0 % (11.5-14.5) Platelet Count 242 x10^3/uL (140-400) Sodium Level 140 mmol/L (136-145) Potassium Level 4.0 mmol/L (3.5-5.1) Chloride Level 107 mmol/L (98-107) Carbon Dioxide Level 21 mmol/L (21-32) Anion Gap 12 (6-14) Blood Urea Nitrogen 35 mg/dL (8-26) Creatinine 1.9 mg/dL (0.7-1.3) Estimated GFR (Cockcroft-Gault) 33.8 Glucose Level 159 mg/dL (70-99) Calcium Level 8.3 mg/dL (8.5-10.1) Laboratory Tests Test 05/21/18 04:05 White Blood Count 11.4 x10^3/uL (4.0-11.0) Red Blood Count 3.51 x10^6/uL (4.30-5.70) Hemoglobin 11.1 g/dL (13.0-17.5) Hematocrit 31.8 % (39.0-53.0) Mean Corpuscular Volume 91 fL (79-100) Mean Corpuscular Hemoglobin 32 pg (25-35) Mean Corpuscular Hemoglobin Concent 35 g/dL (31-37) Red Cell Distribution Width 13.0 % (11.5-14.5) Platelet Count 242 x10^3/uL (140-400) Sodium Level 140 mmol/L (136-145) Potassium Level 4.0 mmol/L (3.5-5.1) Chloride Level 107 mmol/L (98-107) Carbon Dioxide Level 21 mmol/L (21-32) Anion Gap 12 (6-14) Blood Urea Nitrogen 35 mg/dL (8-26) Creatinine 1.9 mg/dL (0.7-1.3) Estimated GFR (Cockcroft-Gault) 33.8 Glucose Level 159 mg/dL (70-99) Calcium Level 8.3 mg/dL (8.5-10.1) Medications Active Scripts Medications Dose Route/Sig Max Daily Dose Days Date Category [no home medications] 05/19/18 Reported Impression . IMPRESSION: 1. Acute respiratory distress secondary to pneumonia. 2. Pneumonia. 3. Acute bronchitis. 4. Paroxysmal coughing spells. 5. Hypertension. 6. Renal failure. IMPRESSION: 1. Wedge-shaped parenchymal opacities within the middle lobe with associated air bronchograms and groundglass opacities is suspicious for consolidative process such as pneumonia. Given the mild nodularity and bulbous nature proximally, underlying mass is not excluded and follow-up to resolution is recommended. 2. Small right pleural effusion. No pneumothorax 3. Mild emphysematous changes are seen. 4. No thoracic lymphadenopathy by size criteria although prominent mediastinal lymph nodes are seen. Plan . REPEAT CT IN 2 MONTHS COUGH IS BETTER WILL CONTINUE THE SAME 1. Continue Zosyn. 2. Add doxycycline. 3. DVT prophylaxis. 4. Tessalon Perles. 5. Avoid caffeinated beverages. HARRIET LANGLEY MD May 21, 2018 10:34
[2018-05-21 11:00] VITALS: BP 155/68
--- NOTE | 2018-05-21 11:24 | PDOC ---
Renal-Progress Notes Subjective Notes Notes LESS COUGH AND SOB History of Present Illness Hx of present illness BETTER Vitals Vitals Vital Signs Date Time Temp Pulse Resp B/P (MAP) Pulse Ox O2 Delivery O2 Flow Rate FiO2 05/21/18 07:41 96 Room Air 05/21/18 07:00 98.6 78 18 167/84 (111) 98.6 Weight Weight [ ] I.O. Intake and Output Intake and Output 05/21/18 07:00 Intake Total 1120 ml Output Total 300 ml Balance 820 ml Intake Oral 1020 ml IV Total 100 ml Output Urine Total 300 ml # Voids 7 Labs Labs Laboratory Tests Test 05/21/18 04:05 White Blood Count 11.4 x10^3/uL (4.0-11.0) Red Blood Count 3.51 x10^6/uL (4.30-5.70) Hemoglobin 11.1 g/dL (13.0-17.5) Hematocrit 31.8 % (39.0-53.0) Mean Corpuscular Volume 91 fL (79-100) Mean Corpuscular Hemoglobin 32 pg (25-35) Mean Corpuscular Hemoglobin Concent 35 g/dL (31-37) Red Cell Distribution Width 13.0 % (11.5-14.5) Platelet Count 242 x10^3/uL (140-400) Sodium Level 140 mmol/L (136-145) Potassium Level 4.0 mmol/L (3.5-5.1) Chloride Level 107 mmol/L (98-107) Carbon Dioxide Level 21 mmol/L (21-32) Anion Gap 12 (6-14) Blood Urea Nitrogen 35 mg/dL (8-26) Creatinine 1.9 mg/dL (0.7-1.3) Estimated GFR (Cockcroft-Gault) 33.8 Glucose Level 159 mg/dL (70-99) Calcium Level 8.3 mg/dL (8.5-10.1) Micro Micro Microbiology 05/19/18 Blood Culture - Preliminary, Resulted NO GROWTH AFTER 1 DAY Review of Systems Constitutional: yes: weakness, alert, oriented Ears/Nose/Throat: Yes: no symptom reported Pulmonary: Yes cough dry, Yes dyspnea Gastrointestional: Yes: no symptom reported Genitourinary: Yes: frequency Musculoskeletal: Yes: no symptom reported Skin: Yes no symptom reported Psychiatric/Neurological: Yes: no symptom reported Endocrine: Yes: no symptom reported Physical Exam General Appearance: no apparent distress Skin: warm Respiratory: bilateral CTA Heart: S1S2, RRR Abdomen: soft, bowel sounds present Genitourinary: bladder flat Extremities: pulses present Neurology: alert, oriented Assessment Assessment IMP SUSPECT CKD STABLE WITH CR OF 1.9 MILD TU-BETTER WITH CR DOWN TO 1.9 FROM 2.5 HTN HX-CONTROLLED BPH-STABLE BENIGN RIGHT RENAL CYST PLAN RENAL SONO C/W CMRD-NOTHING ACUTE NO NEED FOR RENAL CYST F/U ANTIBIOTICS DECREASE IVF'S WILL FOLLOW NEEDED HENRIK MCCALLUM MD May 21, 2018 11:24
--- NOTE | 2018-05-21 12:07 | PDOC ---
PROGRESS NOTES Chief Complaint Chief Complaint RLL Pneumonia remote tobacco abuse, stopped 1966 Hypertension Probable CKD Renal cortical thinning bilaterally possibly affecting chronic renal disease Leukocytosis PLAN consider ct chest IV ANTIBIOTICS, ZOSYN, BLOOD CULT SPUTUM CULT. NEPHROLOGY consult History of Present Illness History of Present Illness 87 year old male who presented with productive cough, SOA and has probable RLL pneumonia. IV antibiotics. His BUN was 42 and Cr 2.2, nephrology is following. Renal sonogram has been ordered. Pulmonology is following for RLL pneumonia. Pt seen and examined Pt alert and oriented; affect appropriate VSS ct chest pending Vitals Vitals Vital Signs Date Time Temp Pulse Resp B/P (MAP) Pulse Ox O2 Delivery O2 Flow Rate FiO2 05/21/18 12:03 96 Room Air 05/21/18 07:00 98.6 78 18 167/84 (111) 98.6 Physical Exam General: Alert, Oriented X3, Cooperative, No acute distress Heart: Regular rate, Normal S1 Lungs: Clear Abdomen: Normal bowel sounds, No tenderness, No hepatosplenomegaly Extremities: No clubbing, No cyanosis Skin: No breakdown Labs LABS Renal ultrasound 05/20/2018 INDICATION: Renal failure COMPARISON STUDY: None FINDINGS: Ultrasound evaluation of the kidneys was performed. Static images are submitted to PACS. Right kidney measures 11.1 x 4.8 x 6.6 cm. In the inferior pole of the right kidney there is a simple appearing 1.5 cm cyst. The left kidney measures 11.3 x 4.3 x 6.5 cm. No focal renal lesions are seen on the left. Diffuse renal cortical thinning is seen bilaterally left greater than right. No hydronephrosis or nephrolithiasis is seen involving either kidney. The bladder appears grossly unremarkable. The underlying prostate has an estimated volume of 63 cc. Areas of internal calcification are noted. IMPRESSION: 1. Renal cortical thinning bilaterally possibly affecting chronic renal disease 2. 1.5 cm cyst, inferior pole right kidney 3. Prostamegaly with areas of prostate calcification Electronically signed by: Keny Mcfadden MD (05/20/2018 12:38 PM) [id number] Laboratory Tests Test 05/21/18 04:05 White Blood Count 11.4 x10^3/uL (4.0-11.0) Red Blood Count 3.51 x10^6/uL (4.30-5.70) Hemoglobin 11.1 g/dL (13.0-17.5) Hematocrit 31.8 % (39.0-53.0) Mean Corpuscular Volume 91 fL (79-100) Mean Corpuscular Hemoglobin 32 pg (25-35) Mean Corpuscular Hemoglobin Concent 35 g/dL (31-37) Red Cell Distribution Width 13.0 % (11.5-14.5) Platelet Count 242 x10^3/uL (140-400) Sodium Level 140 mmol/L (136-145) Potassium Level 4.0 mmol/L (3.5-5.1) Chloride Level 107 mmol/L (98-107) Carbon Dioxide Level 21 mmol/L (21-32) Anion Gap 12 (6-14) Blood Urea Nitrogen 35 mg/dL (8-26) Creatinine 1.9 mg/dL (0.7-1.3) Estimated GFR (Cockcroft-Gault) 33.8 Glucose Level 159 mg/dL (70-99) Calcium Level 8.3 mg/dL (8.5-10.1) Assessment and Plan Assessmemt and Plan Problems Medical Problems: (1) Pneumonia Status: Acute Comment Review of Relevant I have reviewed the following items funmilayo (where applicable) has been applied. Labs Laboratory Tests Test 05/19/18 15:35 05/19/18 17:27 05/19/18 20:08 05/20/18 05:19 White Blood Count 15.1 x10^3/uL (4.0-11.0) 13.5 x10^3/uL (4.0-11.0) Red Blood Count 3.44 x10^6/uL (4.30-5.70) 3.38 x10^6/uL (4.30-5.70) Hemoglobin 10.9 g/dL (13.0-17.5) 10.7 g/dL (13.0-17.5) Hematocrit 31.3 % (39.0-53.0) 30.8 % (39.0-53.0) Mean Corpuscular Volume 91 fL (79-100) 91 fL (79-100) Mean Corpuscular Hemoglobin 32 pg (25-35) 32 pg (25-35) Mean Corpuscular Hemoglobin Concent 35 g/dL (31-37) 35 g/dL (31-37) Red Cell Distribution Width 12.8 % (11.5-14.5) 12.9 % (11.5-14.5) Platelet Count 239 x10^3/uL (140-400) 231 x10^3/uL (140-400) Neutrophils (%) (Auto) 83 % (31-73) 83 % (31-73) Lymphocytes (%) (Auto) 7 % (24-48) 7 % (24-48) Monocytes (%) (Auto) 9 % (0-9) 8 % (0-9) Eosinophils (%) (Auto) 1 % (0-3) 1 % (0-3) Basophils (%) (Auto) 0 % (0-3) 0 % (0-3) Neutrophils # (Auto) 12.6 x10^3uL (1.8-7.7) 11.2 x10^3uL (1.8-7.7) Lymphocytes # (Auto) 1.1 x10^3/uL (1.0-4.8) 1.0 x10^3/uL (1.0-4.8) Monocytes # (Auto) 1.3 x10^3/uL (0.0-1.1) 1.0 x10^3/uL (0.0-1.1) Eosinophils # (Auto) 0.1 x10^3/uL (0.0-0.7) 0.2 x10^3/uL (0.0-0.7) Basophils # (Auto) 0.1 x10^3/uL (0.0-0.2) 0.1 x10^3/uL (0.0-0.2) Segmented Neutrophils % 82 % (35-66) Band Neutrophils % 3 % (0-9) Lymphocytes % 8 % (24-48) Monocytes % 5 % (0-10) Eosinophils % 2 % (0-5) Platelet Estimate Adequate (ADEQUATE) Sodium Level 134 mmol/L (136-145) 135 mmol/L (136-145) Potassium Level 4.2 mmol/L (3.5-5.1) 4.0 mmol/L (3.5-5.1) Chloride Level 98 mmol/L (98-107) 102 mmol/L (98-107) Carbon Dioxide Level 22 mmol/L (21-32) 21 mmol/L (21-32) Anion Gap 14 (6-14) 12 (6-14) Blood Urea Nitrogen 47 mg/dL (8-26) 42 mg/dL (8-26) Creatinine 2.4 mg/dL (0.7-1.3) 2.2 mg/dL (0.7-1.3) Estimated GFR (Cockcroft-Gault) 25.8 28.5 BUN/Creatinine Ratio 20 (6-20) 19 (6-20) Glucose Level 130 mg/dL (70-99) 116 mg/dL (70-99) Calcium Level 8.3 mg/dL (8.5-10.1) 8.3 mg/dL (8.5-10.1) Total Bilirubin 0.9 mg/dL (0.2-1.0) 0.7 mg/dL (0.2-1.0) Aspartate Amino Transf (AST/SGOT) 17 U/L (15-37) 18 U/L (15-37) Alanine Aminotransferase (ALT/SGPT) 20 U/L (16-63) 19 U/L (16-63) Alkaline Phosphatase 91 U/L (46-116) 83 U/L (46-116) Troponin I Quantitative < 0.017 ng/mL (0.000-0.055) Total Protein 5.7 g/dL (6.4-8.2) 5.9 g/dL (6.4-8.2) Albumin 2.5 g/dL (3.4-5.0) 2.1 g/dL (3.4-5.0) Albumin/Globulin Ratio 0.8 (1.0-1.7) 0.6 (1.0-1.7) Lipase 80 U/L (73-393) Influenza Type A Antigen Negative (NEGATIVE) Influenza Type B Antigen Negative (NEGATIVE) Urine Collection Type Unknown Urine Color Yellow Urine Clarity Clear Urine pH 5.0 Urine Specific [place] 1.020 Urine Protein 100 mg/dL (NEG-TRACE) Urine Glucose (UA) Negative mg/dL (NEG) Urine Ketones (Stick) Trace mg/dL (NEG) Urine Blood Trace (NEG) Urine Nitrite Negative (NEG) Urine Bilirubin Negative (NEG) Urine Urobilinogen Dipstick 1.0 mg/dL (0.2 mg/dL) Urine Leukocyte Esterase Negative (NEG) Urine RBC 0 /HPF (0-2) Urine WBC Occ /HPF (0-4) Urine Squamous Epithelial Cells Occ /LPF Urine Amorphous Sediment Present /HPF Urine Bacteria Few /HPF (0-FEW) Urine Hyaline Casts Moderate /HPF Urine Mucus Mod /LPF Test 05/21/18 04:05 White Blood Count 11.4 x10^3/uL (4.0-11.0) Red Blood Count 3.51 x10^6/uL (4.30-5.70) Hemoglobin 11.1 g/dL (13.0-17.5) Hematocrit 31.8 % (39.0-53.0) Mean Corpuscular Volume 91 fL (79-100) Mean Corpuscular Hemoglobin 32 pg (25-35) Mean Corpuscular Hemoglobin Concent 35 g/dL (31-37) Red Cell Distribution Width 13.0 % (11.5-14.5) Platelet Count 242 x10^3/uL (140-400) Sodium Level 140 mmol/L (136-145) Potassium Level 4.0 mmol/L (3.5-5.1) Chloride Level 107 mmol/L (98-107) Carbon Dioxide Level 21 mmol/L (21-32) Anion Gap 12 (6-14) Blood Urea Nitrogen 35 mg/dL (8-26) Creatinine 1.9 mg/dL (0.7-1.3) Estimated GFR (Cockcroft-Gault) 33.8 Glucose Level 159 mg/dL (70-99) Calcium Level 8.3 mg/dL (8.5-10.1) Laboratory Tests Test 05/21/18 04:05 White Blood Count 11.4 x10^3/uL (4.0-11.0) Red Blood Count 3.51 x10^6/uL (4.30-5.70) Hemoglobin 11.1 g/dL (13.0-17.5) Hematocrit 31.8 % (39.0-53.0) Mean Corpuscular Volume 91 fL (79-100) Mean Corpuscular Hemoglobin 32 pg (25-35) Mean Corpuscular Hemoglobin Concent 35 g/dL (31-37) Red Cell Distribution Width 13.0 % (11.5-14.5) Platelet Count 242 x10^3/uL (140-400) Sodium Level 140 mmol/L (136-145) Potassium Level 4.0 mmol/L (3.5-5.1) Chloride Level 107 mmol/L (98-107) Carbon Dioxide Level 21 mmol/L (21-32) Anion Gap 12 (6-14) Blood Urea Nitrogen 35 mg/dL (8-26) Creatinine 1.9 mg/dL (0.7-1.3) Estimated GFR (Cockcroft-Gault) 33.8 Glucose Level 159 mg/dL (70-99) Calcium Level 8.3 mg/dL (8.5-10.1) Microbiology 05/19/18 Blood Culture - Preliminary, Resulted NO GROWTH AFTER 1 DAY Medications Current Medications Ceftriaxone Sodium 50 ml @ 100 mls/hr 1X ONCE IV Last administered on at 17:03; Start 05/19/18 at 16:45; Stop 05/19/18 at 17:14; Status DC Doxycycline Hyclate 100 mg/ Dextrose 100 ml @ 50 mls/hr 1X ONCE IV Last administered on 05/19/18at 17:38; Start 05/19/18 at 16:45; Stop 05/19/18 at 18:44 ; Status DC Ondansetron HCl (Zofran) 4 mg PRN Q8HRS PRN IV NAUSEA/VOMITING; Start 05/19/18 at 16:45; Stop 05/19/18 at 21:53; Status DC Fentanyl Citrate (Fentanyl 2ml Vial) 50 mcg PRN Q2HR PRN IV PAIN Last administered on 05/20/18at 00:11; Start 05/19/18 at 16:45; Stop 05/20/18 at 16: 44; Status DC Acetaminophen (Tylenol) 650 mg PRN Q4HRS PRN PO FEVER; Start 05/19/18 at 16:45 ; Stop 05/19/18 at 21:52; Status DC Influenza Virus Vaccine (Afluria Trivalent [id number] Syringe) 0.5 ml ONCE ONCE VAX IM Last administered on 05/19/18at 20:07; Start 05/19/18 at 21:00; Stop 05/19/18 at 21:01; Status DC Piperacillin Sod/ Tazobactam Sod (Zosyn Per Pharmacy) 1 each PRN DAILY PRN MC SEE COMMENTS; Start 05/19/18 at 22:00 Levofloxacin/ Dextrose 100 ml @ 100 mls/hr Q24H IV ; Start 05/19/18 at 21:45; Status UNV Albuterol/ Ipratropium (Duoneb) 3 ml RTQID NEB Last administered on 05/21/18at 12:01; Start 05/20/18 at 08:00 Enoxaparin Sodium (Lovenox 30mg Syringe) 30 mg Q24H SQ Last administered on 05/28at 21:42; Start 05/19/18 at 22:00 Docusate Sodium (Colace) 100 mg PRN DAILY PRN PO CONSTIPATION; Start 05/19/18 at 21:45 Piperacillin Sod/ Tazobactam Sod 2.25 gm/Sodium Chloride 50 ml @ 100 mls/hr Q6H IV Last administered on 05/21/18at 11:41; Start 05/19/18 at 22:00 Sodium Chloride (Normal Saline Flush 3ml) 3 ml QSHIFT PRN IV AFTER MEDS AND BLOOD DRAWS; Start 05/19/18 at 21:45; Stop 05/20/18 at 17:54; Status DC Sodium Chloride 1,000 ml @ 60 mls/hr [id number] IV Last administered on at 00:05; Start 05/19/18 at 21:45 Ondansetron HCl (Zofran) 4 mg PRN Q4HRS PRN IV NAUSEA/VOMITING; Start 05/19/18 at 21:45 Acetaminophen (Tylenol) 650 mg PRN Q4HRS PRN PO TEMP OVER 100.4F OR MILD PAIN; Start 05/19/18 at 21:45 Al Hydroxide/Mg Hydroxide (Mylanta Plus Xs) 30 ml PRN DAILY PRN PO HEARTBURN / GAS; Start 05/19/18 at 21:45 Clonidine HCl (Catapres) 0.1 mg PRN Q6HRS PRN PO SBP>160 OR DBP>90; Start 05/19 at 21:45 Sodium Monofluorophosphate (Fleet Adult) 133 ml PRN DAILY PRN GA CONSTIPATION; Start 05/19/18 at 21:45 Albuterol Sulfate (Ventolin Neb Soln) 2.5 mg PRN Q4HRS PRN NEB SHORTNESS OF BREATH; Start 05/19/18 at 21:45 Guaifenesin (Robitussin) 200 mg PRN Q4HRS PRN PO COUGH Last administered on 05/28at 18:12; Start 05/19/18 at 21:45 Lactobacillus Rhamnosus (Culturelle) 1 cap BID PO Last administered on at 07:32; Start 05/20/18 at 21:00 Doxycycline Hyclate (Vibra-Tab) 100 mg BID PO Last administered on 05/21/18at 07:32; Start 05/20/18 at 21:00 Benzonatate (Tessalon Perle) 100 mg [id number] PO Last administered on 05/21/18at 07:32; Start 05/20/18 at 21:00 Prednisone (Prednisone) 30 mg DAILY PO Last administered on 05/21/18at 08:13; Start 05/21/18 at 09:00 Prednisone (Prednisone) 30 mg 1X ONCE PO Last administered on 05/20/18at 17:41 ; Start 05/20/18 at 17:15; Stop 05/20/18 at 17:20; Status DC Promethazine HCl/ Codeine (Phenergan With Codeine Oral Syrup) 10 ml PRN Q6HRS PRN PO COUGH; Start 05/20/18 at 17:15 Diphenhydramine HCl (Benadryl) 25 mg PRN QHS PRN PO INSOMNIA; Start 05/20/18 at 17:15 Sodium Chloride (Normal Saline Flush) 3 ml QSHIFT PRN IV AFTER MEDS AND BLOOD DRAWS; Start 05/20/18 at 17:54 Active Scripts Active Reported [no home medications] Vitals/I & O Vital Sign - Last 24 Hours 05/20/18 05/20/18 05/20/18 05/20/18 15:00 15:07 19:00 19:57 Temp 98.3 98.4 98.3 98.4 Pulse 72 77 Resp 18 18 B/P (MAP) 155/50 (85) 144/62 (89) Pulse Ox 94 97 O2 Delivery Room Air Room Air Room Air Room Air 05/20/18 05/20/18 05/21/18 05/21/18 20:30 23:00 03:00 07:00 Temp 98.0 98.7 98.6 98.0 98.7 98.6 Pulse 84 82 78 Resp B/P (MAP) 154/67 (96) 175/69 (104) 167/84 (111) Pulse Ox 96 92 96 97 O2 Delivery Room Air Room Air Room Air Room Air 05/21/18 05/21/18 05/21/18 07:41 08:15 12:03 Pulse Ox 96 96 O2 Delivery Room Air Room Air Room Air Intake and Output 05/20/18 05/20/18 05/21/18 15:00 23:00 07:00 Intake Total 360 ml 230 ml 530 ml Output Total 300 ml Balance 360 ml -70 ml 530 ml ALEXSANDRA COVINGTON MD May 21, 2018 12:07
[2018-05-21 15:00] VITALS: BP 151/58
--- NOTE | 2018-05-21 15:59 | RAD ---
EXAM: CT Chest without IV contrast CLINICAL HISTORY: Pneumonia, COPD NO PREV NO CONTRAST COMPARISON: Chest radiograph 05/19/2018 TECHNIQUE: CT of the chest without intravenous contrast. Axial, coronal and sagittal reformatted images were generated. ---PQRS compliance statement - One or more of the following individualized dose reduction techniques were utilized for this study: 1. Automated exposure control 2. Adjustment of the mA and/or kV according to patient size 3. Use of iterative reconstruction technique--- FINDINGS: Lack of intravenous contrast limits evaluation of solid organs, vasculature, and lymph nodes. Chest: Heart is not enlarged. Small pericardial effusion. Aortic root calcifications are seen. Atherosclerotic calcifications of the aortic arch and descending aorta are seen. Prominent mediastinal lymph nodes are seen, a chain sales representative subcarinal lymph node measures 2 x 1.1 cm. No axillary lymphadenopathy. Small right pleural effusion. No pneumothorax. Dense middle lobe parenchymal airspace opacities are seen with associated volume loss. Although given the degree patchy peripheral groundglass nature and there are bronchograms, associated consolidation is suspected. Recommend follow-up to resolution to exclude underlying mass. Patchy opacities with associated linear platelike components within the right lower lobe likely atelectasis. Mild bilateral emphysematous changes are seen. Visualized Upper abdomen: The gallbladder is decompressed. Bones: Degenerative changes of the lumbar spine are seen. No definite aggressive osseous lesion is identified. Sclerotic focus of likely T12 likely represents bone island. IMPRESSION: 1. Wedge-shaped parenchymal opacities within the middle lobe with associated air bronchograms and groundglass opacities is suspicious for consolidative process such as pneumonia. Given the mild nodularity and bulbous nature proximally, underlying mass is not excluded and follow-up to resolution is recommended. 2. Small right pleural effusion. No pneumothorax 3. Mild emphysematous changes are seen. 4. No thoracic lymphadenopathy by size criteria although prominent mediastinal lymph nodes are seen. Electronically signed by: Nick Segovia MD (05/21/2018 3:56 PM) [place] [id number]
[2018-05-21 19:00] VITALS: BP 140/70
[2018-05-21] MEDS: ENOXAPARIN 30 MG/0.3 ML SYRINGE. SQ SCH (22:01)
[2018-05-21 23:00] VITALS: BP 148/72
[2018-05-22 03:00] VITALS: BP 145/78
[2018-05-22 05:30] LABS: BASO % 0 % (0-3); EOS % 0 % (0-3); HEMOGLOBIN 10.5 g/dL (13.0-17.5); LYMPH % 7 % (24-48); MEAN CORPUSCULAR HEMOGLOBIN 32 pg (25-35); MEAN CORPUSCULAR HGB CONC 35 g/dL (31-37); MEAN CORPUSCULAR VOLUME 91 fL (79-100); MONO # 0.7 x10^3/uL (0.0-1.1); MONO % 5 % (0-9); NEUT # 12.6 x10^3uL (1.8-7.7); NEUT % 88 % (31-73); PLATELET COUNT 260 x10^3/uL (140-400); RED CELL DISTRIBUTION WIDTH 12.9 % (11.5-14.5); WHITE BLOOD COUNT 14.3 x10^3/uL (4.0-11.0)
[2018-05-22 05:44] LABS: CREATININE 1.9 mg/dL (0.7-1.3); GFR 33.8; POTASSIUM 4.1 mmol/L (3.5-5.1)
[2018-05-22] MEDS: PIPERACILLIN/TAZOBACTAM 2.25 GM in IV NORMAL SALINE 50ML 50 ML IV SCH (05:49)
[2018-05-22] MEDS: IV NORMAL SALINE 1000ML BAG 1,000 ML IV SCH (05:50)
[2018-05-22 07:00] VITALS: BP 145/78
[2018-05-22] MEDS: IPRATRPIUM/ALBUTEROL 0.5/2.5MG 3 ML NEBU. NEB SCH ×2 (07:30→11:43)
[2018-05-22] MEDS: BENZONATATE 100 MG CAPSULE. PO SCH (08:59)
[2018-05-22] MEDS: DOXYCYCLINE HYCLATE 100 MG TABLET PO SCH (08:59)
[2018-05-22] MEDS: LACTOBACILLUS RHAMNOSUS GG 1 CAPSULE. PO SCH (08:59)
[2018-05-22] MEDS: predniSONE 20 MG TABLET PO SCH (09:00)
--- NOTE | 2018-05-22 10:53 | DISCH ---
DISCHARGE DISCHARGE INFORMATION: FINAL DIAGNOSIS Problems Medical Problems: (1) Pneumonia Status: Acute CONDITION ON DISCHARGE: Stable CODE STATUS: Code Status: Full CARE HOME: SNF STAY <30 DAYS: Yes HOSPICE: HOSPICE: No HOSPICE EVAL & TREAT: No LTAC: ADMIT TO LTAC: No POST DISCHARGE ORDERS: ACTIVITY ORDERS: Resume previous activity DIET AFTER DISCHARGE: Cardiac TREATMENT/EQUIPMENT ORDERS: Physical Therapy For: Evalulation/Treatment Occupational Therapy For: Evaluation/Treatment DISCHARGE MEDICATIONS: Home Meds Reported Medications [no home medications] No Conflict Check 05/19/18 ZANDER BARTON III DO May 22, 2018 10:53
[2018-05-22 10:55] VITALS: BP 147/80
--- NOTE | 2018-05-22 11:06 | PDOC ---
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 Baltazar is an 87 year old male who presented with productive cough, SOA and has probable RLL pneumonia. IV antibiotics. Last BUN 39 and Cr 1.9, nephrology is following. Pulmonology is following for RLL pneumonia. Pt states he is feeling "much better" today. Pt states he used to have pleuritic chest pain, but it has resolved. CT chest performed yesterday, showing small pleural effusion, slight emphysematous change and findings consistent with pneumonia. Pt seen and examined Pt alert and oriented; affect appropriate VSS Vitals Vitals Vital Signs Date Time Temp Pulse Resp B/P (MAP) Pulse Ox O2 Delivery O2 Flow Rate FiO2 05/22/18 08:15 Room Air 05/22/18 07:31 95 05/22/18 07:00 97.7 90 18 145/78 (100) 97.7 Physical Exam General: Alert, Oriented X3, Cooperative, No acute distress Heart: Regular rate, Normal S1 Lungs: Crackles Abdomen: Normal bowel sounds, No tenderness, No hepatosplenomegaly Extremities: No clubbing, No cyanosis Skin: No breakdown Labs LABS Laboratory Tests Test 05/21/18 12:02 05/22/18 03:45 Glucose (Fingerstick) 159 mg/dL (70-99) White Blood Count 14.3 x10^3/uL (4.0-11.0) Red Blood Count 3.30 x10^6/uL (4.30-5.70) Hemoglobin 10.5 g/dL (13.0-17.5) Hematocrit 30.0 % (39.0-53.0) Mean Corpuscular Volume 91 fL (79-100) Mean Corpuscular Hemoglobin 32 pg (25-35) Mean Corpuscular Hemoglobin Concent 35 g/dL (31-37) Red Cell Distribution Width 12.9 % (11.5-14.5) Platelet Count 260 x10^3/uL (140-400) Neutrophils (%) (Auto) 88 % (31-73) Lymphocytes (%) (Auto) 7 % (24-48) Monocytes (%) (Auto) 5 % (0-9) Eosinophils (%) (Auto) 0 % (0-3) Basophils (%) (Auto) 0 % (0-3) Neutrophils # (Auto) 12.6 x10^3uL (1.8-7.7) Lymphocytes # (Auto) 1.0 x10^3/uL (1.0-4.8) Monocytes # (Auto) 0.7 x10^3/uL (0.0-1.1) Eosinophils # (Auto) 0.0 x10^3/uL (0.0-0.7) Basophils # (Auto) 0.0 x10^3/uL (0.0-0.2) Sodium Level 142 mmol/L (136-145) Potassium Level 4.1 mmol/L (3.5-5.1) Chloride Level 109 mmol/L (98-107) Carbon Dioxide Level 20 mmol/L (21-32) Anion Gap 13 (6-14) Blood Urea Nitrogen 39 mg/dL (8-26) Creatinine 1.9 mg/dL (0.7-1.3) Estimated GFR (Cockcroft-Gault) 33.8 Glucose Level 122 mg/dL (70-99) Calcium Level 9.0 mg/dL (8.5-10.1) Review of Systems Review of Systems Pt denies angina, denies SOA. 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 Labs Laboratory Tests Test 05/21/18 04:05 05/21/18 12:02 05/22/18 03:45 White Blood Count 11.4 x10^3/uL (4.0-11.0) 14.3 x10^3/uL (4.0-11.0) Red Blood Count 3.51 x10^6/uL (4.30-5.70) 3.30 x10^6/uL (4.30-5.70) Hemoglobin 11.1 g/dL (13.0-17.5) 10.5 g/dL (13.0-17.5) Hematocrit 31.8 % (39.0-53.0) 30.0 % (39.0-53.0) Mean Corpuscular Volume 91 fL (79-100) 91 fL (79-100) Mean Corpuscular Hemoglobin 32 pg (25-35) 32 pg (25-35) Mean Corpuscular Hemoglobin Concent 35 g/dL (31-37) 35 g/dL (31-37) Red Cell Distribution Width 13.0 % (11.5-14.5) 12.9 % (11.5-14.5) Platelet Count 242 x10^3/uL (140-400) 260 x10^3/uL (140-400) Sodium Level 140 mmol/L (136-145) 142 mmol/L (136-145) Potassium Level 4.0 mmol/L (3.5-5.1) 4.1 mmol/L (3.5-5.1) Chloride Level 107 mmol/L (98-107) 109 mmol/L (98-107) Carbon Dioxide Level 21 mmol/L (21-32) 20 mmol/L (21-32) Anion Gap 12 (6-14) 13 (6-14) Blood Urea Nitrogen 35 mg/dL (8-26) 39 mg/dL (8-26) Creatinine 1.9 mg/dL (0.7-1.3) 1.9 mg/dL (0.7-1.3) Estimated GFR (Cockcroft-Gault) 33.8 33.8 Glucose Level 159 mg/dL (70-99) 122 mg/dL (70-99) Calcium Level 8.3 mg/dL (8.5-10.1) 9.0 mg/dL (8.5-10.1) Glucose (Fingerstick) 159 mg/dL (70-99) Neutrophils (%) (Auto) 88 % (31-73) Lymphocytes (%) (Auto) 7 % (24-48) Monocytes (%) (Auto) 5 % (0-9) Eosinophils (%) (Auto) 0 % (0-3) Basophils (%) (Auto) 0 % (0-3) Neutrophils # (Auto) 12.6 x10^3uL (1.8-7.7) Lymphocytes # (Auto) 1.0 x10^3/uL (1.0-4.8) Monocytes # (Auto) 0.7 x10^3/uL (0.0-1.1) Eosinophils # (Auto) 0.0 x10^3/uL (0.0-0.7) Basophils # (Auto) 0.0 x10^3/uL (0.0-0.2) Laboratory Tests Test 05/21/18 12:02 05/22/18 03:45 Glucose (Fingerstick) 159 mg/dL (70-99) White Blood Count 14.3 x10^3/uL (4.0-11.0) Red Blood Count 3.30 x10^6/uL (4.30-5.70) Hemoglobin 10.5 g/dL (13.0-17.5) Hematocrit 30.0 % (39.0-53.0) Mean Corpuscular Volume 91 fL (79-100) Mean Corpuscular Hemoglobin 32 pg (25-35) Mean Corpuscular Hemoglobin Concent 35 g/dL (31-37) Red Cell Distribution Width 12.9 % (11.5-14.5) Platelet Count 260 x10^3/uL (140-400) Neutrophils (%) (Auto) 88 % (31-73) Lymphocytes (%) (Auto) 7 % (24-48) Monocytes (%) (Auto) 5 % (0-9) Eosinophils (%) (Auto) 0 % (0-3) Basophils (%) (Auto) 0 % (0-3) Neutrophils # (Auto) 12.6 x10^3uL (1.8-7.7) Lymphocytes # (Auto) 1.0 x10^3/uL (1.0-4.8) Monocytes # (Auto) 0.7 x10^3/uL (0.0-1.1) Eosinophils # (Auto) 0.0 x10^3/uL (0.0-0.7) Basophils # (Auto) 0.0 x10^3/uL (0.0-0.2) Sodium Level 142 mmol/L (136-145) Potassium Level 4.1 mmol/L (3.5-5.1) Chloride Level 109 mmol/L (98-107) Carbon Dioxide Level 20 mmol/L (21-32) Anion Gap 13 (6-14) Blood Urea Nitrogen 39 mg/dL (8-26) Creatinine 1.9 mg/dL (0.7-1.3) Estimated GFR (Cockcroft-Gault) 33.8 Glucose Level 122 mg/dL (70-99) Calcium Level 9.0 mg/dL (8.5-10.1) Microbiology 05/19/18 Blood Culture - Preliminary, Resulted NO GROWTH AFTER 2 DAYS Medications Current Medications Ceftriaxone Sodium 50 ml @ 100 mls/hr 1X ONCE IV Last administered on at 17:03; Start 05/19/18 at 16:45; Stop 05/19/18 at 17:14; Status DC Doxycycline Hyclate 100 mg/ Dextrose 100 ml @ 50 mls/hr 1X ONCE IV Last administered on 05/19/18at 17:38; Start 05/19/18 at 16:45; Stop 05/19/18 at 18:44 ; Status DC Ondansetron HCl (Zofran) 4 mg PRN Q8HRS PRN IV NAUSEA/VOMITING; Start 05/19/18 at 16:45; Stop 05/19/18 at 21:53; Status DC Fentanyl Citrate (Fentanyl 2ml Vial) 50 mcg PRN Q2HR PRN IV PAIN Last administered on 05/20/18at 00:11; Start 05/19/18 at 16:45; Stop 05/20/18 at 16: 44; Status DC Acetaminophen (Tylenol) 650 mg PRN Q4HRS PRN PO FEVER; Start 05/19/18 at 16:45 ; Stop 05/19/18 at 21:52; Status DC Influenza Virus Vaccine (Afluria Trivalent [id number] Syringe) 0.5 ml ONCE ONCE VAX IM Last administered on 05/19/18at 20:07; Start 05/19/18 at 21:00; Stop 05/19/18 at 21:01; Status DC Piperacillin Sod/ Tazobactam Sod (Zosyn Per Pharmacy) 1 each PRN DAILY PRN MC SEE COMMENTS; Start 05/19/18 at 22:00 Levofloxacin/ Dextrose 100 ml @ 100 mls/hr Q24H IV ; Start 05/19/18 at 21:45; Status UNV Albuterol/ Ipratropium (Duoneb) 3 ml RTQID NEB Last administered on 05/22/18at 07:30; Start 05/20/18 at 08:00 Enoxaparin Sodium (Lovenox 30mg Syringe) 30 mg Q24H SQ Last administered on 06/28at 22:01; Start 05/19/18 at 22:00 Docusate Sodium (Colace) 100 mg PRN DAILY PRN PO CONSTIPATION; Start 05/19/18 at 21:45 Piperacillin Sod/ Tazobactam Sod 2.25 gm/Sodium Chloride 50 ml @ 100 mls/hr Q6H IV Last administered on 05/22/18at 05:49; Start 05/19/18 at 22:00 Sodium Chloride (Normal Saline Flush 3ml) 3 ml QSHIFT PRN IV AFTER MEDS AND BLOOD DRAWS; Start 05/19/18 at 21:45; Stop 05/20/18 at 17:54; Status DC Sodium Chloride 1,000 ml @ 60 mls/hr [id number] IV Last administered on at 05:50; Start 05/19/18 at 21:45 Ondansetron HCl (Zofran) 4 mg PRN Q4HRS PRN IV NAUSEA/VOMITING; Start 05/19/18 at 21:45 Acetaminophen (Tylenol) 650 mg PRN Q4HRS PRN PO TEMP OVER 100.4F OR MILD PAIN; Start 05/19/18 at 21:45 Al Hydroxide/Mg Hydroxide (Mylanta Plus Xs) 30 ml PRN DAILY PRN PO HEARTBURN / GAS; Start 05/19/18 at 21:45 Clonidine HCl (Catapres) 0.1 mg PRN Q6HRS PRN PO SBP>160 OR DBP>90; Start 05/19 at 21:45 Sodium Monofluorophosphate (Fleet Adult) 133 ml PRN DAILY PRN [place] CONSTIPATION; Start 05/19/18 at 21:45 Albuterol Sulfate (Ventolin Neb Soln) 2.5 mg PRN Q4HRS PRN NEB SHORTNESS OF BREATH; Start 05/19/18 at 21:45 Guaifenesin (Robitussin) 200 mg PRN Q4HRS PRN PO COUGH Last administered on 05/28at 18:12; Start 05/19/18 at 21:45 Lactobacillus Rhamnosus (Culturelle) 1 cap BID PO Last administered on at 08:59; Start 05/20/18 at 21:00 Doxycycline Hyclate (Vibra-Tab) 100 mg BID PO Last administered on 05/22/18at 08:59; Start 05/20/18 at 21:00 Benzonatate (Tessalon Perle) 100 mg [id number] PO Last administered on 05/22/18at 08:59; Start 05/20/18 at 21:00 Prednisone (Prednisone) 30 mg DAILY PO Last administered on 05/22/18at 09:00; Start 05/21/18 at 09:00 Prednisone (Prednisone) 30 mg 1X ONCE PO Last administered on 05/20/18at 17:41 ; Start 05/20/18 at 17:15; Stop 05/20/18 at 17:20; Status DC Promethazine HCl/ Codeine (Phenergan With Codeine Oral Syrup) 10 ml PRN Q6HRS PRN PO COUGH; Start 05/20/18 at 17:15 Diphenhydramine HCl (Benadryl) 25 mg PRN QHS PRN PO INSOMNIA; Start 05/20/18 at 17:15 Sodium Chloride (Normal Saline Flush) 3 ml QSHIFT PRN IV AFTER MEDS AND BLOOD DRAWS; Start 05/20/18 at 17:54 Active Scripts Active Reported [no home medications] Vitals/I & O Vital Sign - Last 24 Hours 05/21/18 05/21/18 05/21/18 05/21/18 12:03 15:00 15:25 19:00 Temp 96.5 98.0 96.5 98.0 Pulse 89 87 Resp 18 18 B/P (MAP) 151/58 (89) 140/70 (93) Pulse Ox 96 96 96 O2 Delivery Room Air Room Air Room Air Room Air 05/21/18 05/21/18 05/21/18 05/22/18 19:51 20:00 23:00 03:00 Temp 97.9 98.1 97.9 98.1 Pulse 80 79 Resp 18 20 B/P (MAP) 148/72 (97) 145/78 (100) Pulse Ox 94 94 O2 Delivery Room Air Room Air Room Air Room Air 05/22/18 05/22/18 05/22/18 07:00 07:31 08:15 Temp 97.7 97.7 Pulse 90 Resp 18 B/P (MAP) 145/78 (100) Pulse Ox 96 95 O2 Delivery Room Air Room Air Room Air Intake and Output 05/21/18 05/21/18 05/22/18 15:00 23:00 07:00 Intake Total 300 ml 1490 ml Output Total 2 ml Balance 300 ml 1488 ml ZANDER BARTON III DO May 22, 2018 11:06
--- NOTE | 2018-05-22 11:08 | PDOC ---
PULMONARY PROGRESS NOTES Subjective PT FEELS LESS SOA LESS COUGH Vitals Vital Signs Date Time Temp Pulse Resp B/P (MAP) Pulse Ox O2 Delivery O2 Flow Rate FiO2 05/22/18 08:15 Room Air 05/22/18 07:31 95 05/22/18 07:00 97.7 90 18 145/78 (100) 97.7 ROS: No Nausea, No Chest Pain, No Abdominal Pain, No Increase Cough General: Alert Lungs: Crackles Cardiovascular: S1 Abdomen: Soft Neuro Exam: Alert Extremities: No Edema Skin: Warm Labs Laboratory Tests Test 05/21/18 04:05 05/21/18 12:02 05/22/18 03:45 White Blood Count 11.4 x10^3/uL (4.0-11.0) 14.3 x10^3/uL (4.0-11.0) Red Blood Count 3.51 x10^6/uL (4.30-5.70) 3.30 x10^6/uL (4.30-5.70) Hemoglobin 11.1 g/dL (13.0-17.5) 10.5 g/dL (13.0-17.5) Hematocrit 31.8 % (39.0-53.0) 30.0 % (39.0-53.0) Mean Corpuscular Volume 91 fL (79-100) 91 fL (79-100) Mean Corpuscular Hemoglobin 32 pg (25-35) 32 pg (25-35) Mean Corpuscular Hemoglobin Concent 35 g/dL (31-37) 35 g/dL (31-37) Red Cell Distribution Width 13.0 % (11.5-14.5) 12.9 % (11.5-14.5) Platelet Count 242 x10^3/uL (140-400) 260 x10^3/uL (140-400) Sodium Level 140 mmol/L (136-145) 142 mmol/L (136-145) Potassium Level 4.0 mmol/L (3.5-5.1) 4.1 mmol/L (3.5-5.1) Chloride Level 107 mmol/L (98-107) 109 mmol/L (98-107) Carbon Dioxide Level 21 mmol/L (21-32) 20 mmol/L (21-32) Anion Gap 12 (6-14) 13 (6-14) Blood Urea Nitrogen 35 mg/dL (8-26) 39 mg/dL (8-26) Creatinine 1.9 mg/dL (0.7-1.3) 1.9 mg/dL (0.7-1.3) Estimated GFR (Cockcroft-Gault) 33.8 33.8 Glucose Level 159 mg/dL (70-99) 122 mg/dL (70-99) Calcium Level 8.3 mg/dL (8.5-10.1) 9.0 mg/dL (8.5-10.1) Glucose (Fingerstick) 159 mg/dL (70-99) Neutrophils (%) (Auto) 88 % (31-73) Lymphocytes (%) (Auto) 7 % (24-48) Monocytes (%) (Auto) 5 % (0-9) Eosinophils (%) (Auto) 0 % (0-3) Basophils (%) (Auto) 0 % (0-3) Neutrophils # (Auto) 12.6 x10^3uL (1.8-7.7) Lymphocytes # (Auto) 1.0 x10^3/uL (1.0-4.8) Monocytes # (Auto) 0.7 x10^3/uL (0.0-1.1) Eosinophils # (Auto) 0.0 x10^3/uL (0.0-0.7) Basophils # (Auto) 0.0 x10^3/uL (0.0-0.2) Laboratory Tests Test 05/21/18 12:02 05/22/18 03:45 Glucose (Fingerstick) 159 mg/dL (70-99) White Blood Count 14.3 x10^3/uL (4.0-11.0) Red Blood Count 3.30 x10^6/uL (4.30-5.70) Hemoglobin 10.5 g/dL (13.0-17.5) Hematocrit 30.0 % (39.0-53.0) Mean Corpuscular Volume 91 fL (79-100) Mean Corpuscular Hemoglobin 32 pg (25-35) Mean Corpuscular Hemoglobin Concent 35 g/dL (31-37) Red Cell Distribution Width 12.9 % (11.5-14.5) Platelet Count 260 x10^3/uL (140-400) Neutrophils (%) (Auto) 88 % (31-73) Lymphocytes (%) (Auto) 7 % (24-48) Monocytes (%) (Auto) 5 % (0-9) Eosinophils (%) (Auto) 0 % (0-3) Basophils (%) (Auto) 0 % (0-3) Neutrophils # (Auto) 12.6 x10^3uL (1.8-7.7) Lymphocytes # (Auto) 1.0 x10^3/uL (1.0-4.8) Monocytes # (Auto) 0.7 x10^3/uL (0.0-1.1) Eosinophils # (Auto) 0.0 x10^3/uL (0.0-0.7) Basophils # (Auto) 0.0 x10^3/uL (0.0-0.2) Sodium Level 142 mmol/L (136-145) Potassium Level 4.1 mmol/L (3.5-5.1) Chloride Level 109 mmol/L (98-107) Carbon Dioxide Level 20 mmol/L (21-32) Anion Gap 13 (6-14) Blood Urea Nitrogen 39 mg/dL (8-26) Creatinine 1.9 mg/dL (0.7-1.3) Estimated GFR (Cockcroft-Gault) 33.8 Glucose Level 122 mg/dL (70-99) Calcium Level 9.0 mg/dL (8.5-10.1) Medications Active Scripts Medications Dose Route/Sig Max Daily Dose Days Date Category [no home medications] 05/19/18 Reported Impression . IMPRESSION: 1. Acute respiratory distress secondary to pneumonia. 2. Pneumonia. 3. Acute bronchitis. 4. Paroxysmal coughing spells. 5. Hypertension. 6. Renal failure. IMPRESSION: 1. Wedge-shaped parenchymal opacities within the middle lobe with associated air bronchograms and groundglass opacities is suspicious for consolidative process such as pneumonia. Given the mild nodularity and bulbous nature proximally, underlying mass is not excluded and follow-up to resolution is recommended. 2. Small right pleural effusion. No pneumothorax 3. Mild emphysematous changes are seen. 4. No thoracic lymphadenopathy by size criteria although prominent mediastinal lymph nodes are seen. Plan . REPEAT CT IN 2 MONTHS COUGH IS BETTER WILL CONTINUE THE SAME 1. Continue Zosyn. 2. Add doxycycline. 3. DVT prophylaxis. 4. Tessalon Perles. 5. Avoid caffeinated beverages. HARRIET LANGLEY MD May 22, 2018 11:08
--- NOTE | 2018-05-22 11:51 | PDOC ---
Renal-Progress Notes Subjective Notes Notes NO COMPLAINTS, AMBULATING History of Present Illness Hx of present illness STABLE Vitals Vitals Vital Signs Date Time Temp Pulse Resp B/P (MAP) Pulse Ox O2 Delivery O2 Flow Rate FiO2 05/22/18 11:44 95 Room Air 05/22/18 10:55 97.9 93 18 147/80 (102) 97.9 Weight Weight [ ] I.O. Intake and Output Intake and Output 05/22/18 07:00 Intake Total 1790 ml Output Total 2 ml Balance 1788 ml Intake Oral 740 ml IV Total 1050 ml Stool Total 2 ml # Voids 11 Labs Labs Laboratory Tests Test 05/21/18 12:02 05/22/18 03:45 Glucose (Fingerstick) 159 mg/dL (70-99) White Blood Count 14.3 x10^3/uL (4.0-11.0) Red Blood Count 3.30 x10^6/uL (4.30-5.70) Hemoglobin 10.5 g/dL (13.0-17.5) Hematocrit 30.0 % (39.0-53.0) Mean Corpuscular Volume 91 fL (79-100) Mean Corpuscular Hemoglobin 32 pg (25-35) Mean Corpuscular Hemoglobin Concent 35 g/dL (31-37) Red Cell Distribution Width 12.9 % (11.5-14.5) Platelet Count 260 x10^3/uL (140-400) Neutrophils (%) (Auto) 88 % (31-73) Lymphocytes (%) (Auto) 7 % (24-48) Monocytes (%) (Auto) 5 % (0-9) Eosinophils (%) (Auto) 0 % (0-3) Basophils (%) (Auto) 0 % (0-3) Neutrophils # (Auto) 12.6 x10^3uL (1.8-7.7) Lymphocytes # (Auto) 1.0 x10^3/uL (1.0-4.8) Monocytes # (Auto) 0.7 x10^3/uL (0.0-1.1) Eosinophils # (Auto) 0.0 x10^3/uL (0.0-0.7) Basophils # (Auto) 0.0 x10^3/uL (0.0-0.2) Sodium Level 142 mmol/L (136-145) Potassium Level 4.1 mmol/L (3.5-5.1) Chloride Level 109 mmol/L (98-107) Carbon Dioxide Level 20 mmol/L (21-32) Anion Gap 13 (6-14) Blood Urea Nitrogen 39 mg/dL (8-26) Creatinine 1.9 mg/dL (0.7-1.3) Estimated GFR (Cockcroft-Gault) 33.8 Glucose Level 122 mg/dL (70-99) Calcium Level 9.0 mg/dL (8.5-10.1) Micro Micro Microbiology 05/19/18 Blood Culture - Preliminary, Resulted NO GROWTH AFTER 2 DAYS Review of Systems Constitutional: yes: weakness, alert, oriented Ears/Nose/Throat: Yes: no symptom reported Pulmonary: Yes cough dry, Yes dyspnea Gastrointestional: Yes: no symptom reported Genitourinary: Yes: frequency Musculoskeletal: Yes: no symptom reported Skin: Yes no symptom reported Psychiatric/Neurological: Yes: no symptom reported Endocrine: Yes: no symptom reported Physical Exam General Appearance: no apparent distress Skin: warm Respiratory: bilateral CTA Heart: S1S2, RRR Abdomen: soft, bowel sounds present Genitourinary: bladder flat Extremities: pulses present Neurology: alert, oriented Assessment Assessment IMP SUSPECT CKD STABLE WITH CR OF 1.9 MILD TU-RESOLVED HTN HX-CONTROLLED BPH-STABLE BENIGN RIGHT RENAL CYST PLAN NO NEED FOR RENAL CYST F/U ANTIBIOTICS WILL FOLLOW NEEDED HENRIK MCCALLUM MD May 22, 2018 11:51
== END 2018-05-22 13:15 | DRG 871 ==
LOC: ER 14:42 → 5 NORTH 16:35
PROVIDERS: ADMIT Family Medicine; ATTEND Family Medicine
DX: A41.9 Sepsis, unspecified organism (principal); J18.1 Lobar pneumonia, unspecified organism; J98.11 Atelectasis; J44.0 Chronic obstructive pulmonary disease with (acute) lower respiratory infection; N17.9 Acute kidney failure, unspecified; N18.3 Chronic kidney disease, stage 3 (moderate); I12.9 Hypertensive chronic kidney disease with stage 1 through stage 4 chronic kidney disease, or unspecified chronic kidney disease; Z82.49 Family history of ischemic heart disease and other diseases of the circulatory system; R06.03 Acute respiratory distress; J20.9 Acute bronchitis, unspecified; N40.0 Benign prostatic hyperplasia without lower urinary tract symptoms; Z87.891 Personal history of nicotine dependence
CPT/HCPCS: 36415; 71045; 71250; 76770; 80048; 80053; 81001; 82962; 83690; 84484; 85007; 85025; 85027; 87040; 87804; 90471; 90756; 93005; 94640; 94760; 96365; 96368; J0690; J1650; J2543; J3010; J3490; J7030; J7512; J7620; 97110; 97530; 97535; 99285-25; Q2035

== ENCOUNTER 2019-04-19 16:58 | Inpatient (IN) | payer MEDICARE ==
[~2019-04-19] VITALS: Ht 167.6 cm; Wt 74.4 kg
[~2019-04-19 16:58] MED LIST changes: +no home medications
[2019-04-19] MEDS ORDERED: MECLIZINE HCL 12.5 MG TABLET. PO ONE (18:15)
[2019-04-19 18:25] LABS: BASO # 0.1 x10^3/uL (0.0-0.2); BASO % 1 % (0-3); EOS # 0.3 x10^3/uL (0.0-0.7); EOS % 4 % (0-3); HEMOGLOBIN 12.8 g/dL (13.0-17.5); LYMPH # 1.2 x10^3/uL (1.0-4.8); LYMPH % 17 % (24-48); MEAN CORPUSCULAR HEMOGLOBIN 32 pg (25-35); MEAN CORPUSCULAR HGB CONC 35 g/dL (31-37); MEAN CORPUSCULAR VOLUME 92 fL (79-100); MONO # 0.5 x10^3/uL (0.0-1.1); MONO % 7 % (0-9); NEUT % 71 % (31-73); PLATELET COUNT 182 x10^3/uL (140-400); RED BLOOD COUNT 4.03 x10^6/uL (4.30-5.70); RED CELL DISTRIBUTION WIDTH 13.6 % (11.5-14.5); WHITE BLOOD COUNT 7.1 x10^3/uL (4.0-11.0)
--- NOTE | 2019-04-19 18:36 | RAD ---
Exam: CT head INDICATION: Dizziness TECHNIQUE: Sequential axial images through the head were obtained without the administration of IV contrast. Comparisons: 01/30/2017 FINDINGS: No focal parenchymal lesion or hemorrhage is identified. There is no midline shift or sulcal effacement. Patchy hypodensities within the periventricular white matter which mildly progressed when compared to the prior study in 2017. No acute vascular territory infarction is identified. Paez-white distinction is preserved. The ventricular system is within normal limits without compression hydrocephalus. The basal cisterns are well maintained. The visualized portions of the paranasal sinuses and mastoid air cells are well-pneumatized. No acute fractures. IMPRESSION: Patchy hypodensity within the periventricular white matter which is progressed when compared to the study in 2017. This likely represents normal vessel ischemic change, age indeterminant however at least partly chronic. Exposure: One or more of the following in the visualized dose reduction techniques were utilized for this examination: 1. Automated exposure control 2. Adjustment of the MA and/or KV according to patient size Use of iterative of reconstructive technique Electronically signed by: Kush Pa MD (04/19/2019 6:33 PM) [id number]
[2019-04-19 18:40] LABS: CALCIUM 9.1 mg/dL (8.5-10.1); CREATININE 2.4 mg/dL (0.7-1.3); GFR 25.7; POTASSIUM 4.6 mmol/L (3.5-5.1)
[2019-04-19 18:45] LABS: ALBUMIN 3.7 g/dL (3.4-5.0); ALBUMIN/GLOBULIN RATIO 1.2 (1.0-1.7); MAGNESIUM 2.1 mg/dL (1.8-2.4); TOTAL BILIRUBIN 0.6 mg/dL (0.2-1.0); TOTAL PROTEIN 6.8 g/dL (6.4-8.2)
[2019-04-19] MEDS ORDERED: MECLIZINE HCL 12.5 MG TABLET. PO PRN (21:00)
[2019-04-19] MEDS ORDERED: ONDANSETRON PF 4 MG/2 ML VIAL. IV PRN (21:00)
[2019-04-19] MEDS ORDERED: IV NORMAL SALINE 1000ML BAG 1,000 ML IV ONE (21:00)
--- NOTE | 2019-04-19 21:06 | RAD ---
AP portable chest radiograph 04/19/2019 Clinical History: Dizziness. Two AP erect portable digital radiographs of the chest were obtained. Comparison study is dated 05/19/2018. The cardiac silhouette is normal in size. The thoracic aorta is tortuous. Atherosclerotic calcification of the thoracic aorta is seen. There is a small right pleural effusion. No acute pulmonary infiltrate is seen. No pneumothorax is noted. Degenerative changes are seen involving the thoracic spine and both shoulders. Impression: Small right pleural effusion. No acute pulmonary infiltrate is seen. Electronically signed by: Hay Davis MD (04/19/2019 9:04 PM) [facility]
--- NOTE | 2019-04-19 21:31 | PHYS DOC ---
Past Medical History Past Medical History: Hypertension, Renal Disease (TIFFANIE FERNANDO APRN) Past Surgical History: Tonsillectomy, Other Additional Past Surgical Histo: Bilat.rotator cuff (TIFFANIE FERNANDO APRN) Additional Information: "QUIT SMOKING IN THE 60S" Alcohol Use: None Drug Use: None (TIFFANIE FERNANDO APRN) Adult General Chief Complaint Chief Complaint: DIZZY/LIGHT HEADED HPI HPI Patient is a 88 year old male with history of hypertension, kidney disease, who presents to the ED today complaining of dizziness that has been occurring i ntermittently for months. Patient states the dizziness is usually worse when he is changing positions especially from laying down to standing up. Denies any nausea, vomiting. Denies any chest pain or shortness of breath. (TIFFANIE FERNANDO APRN) Review of Systems Review of Systems Constitutional: Denies fever or chills [] Eyes: Denies change in visual acuity, redness, or eye pain [] HENT: Denies nasal congestion or sore throat [] Respiratory: Denies cough or shortness of breath [] Cardiovascular: No additional information not addressed in HPI [] GI: Denies abdominal pain, nausea, vomiting, bloody stools or diarrhea [] : Denies dysuria or hematuria [] Musculoskeletal: Denies back pain or joint pain [] Integument: Denies rash or skin lesions [] Neurologic: Reports dizziness. Denies headache, focal weakness or sensory changes [] All other systems were reviewed and found to be within normal limits, except as documented in this note. (TIFFANIE FERNANDO APRN) Current Medications Current Medications Current Medications Medications (Trade) Dose Ordered Sig/Miguel Start Time Stop Time Status Last Admin Dose Admin Meclizine HCl (Antivert) 25 mg 1X ONCE 04/19/19 18:15 04/19/19 18:16 DC 04/19/19 18:27 25 MG (PIPER LEE DO) Allergies Allergies Allergies Coded Allergies Type Severity Reaction Last Updated Verified No Known Drug Allergies 01/30/17 No (PIPER LEE DO) Physical Exam Physical Exam Constitutional: Well developed, well nourished, no acute distress, non-toxic appearance. [] HENT: Normocephalic, atraumatic, bilateral external ears normal, oropharynx moist, no oral exudates, nose normal. [] Eyes: PERRLA, EOMI, conjunctiva normal, no discharge. [] Neck: Normal range of motion, no tenderness, supple, no stridor. [] Cardiovascular:Heart rate regular rhythm, no murmur [] Lungs & Thorax: Bilateral breath sounds clear to auscultation [] Abdomen: Bowel sounds normal, soft, no tenderness, no masses, no pulsatile masses. [] Skin: Warm, dry, no erythema, no rash. [] Back: No tenderness, no CVA tenderness. [] Extremities: No tenderness, no cyanosis, no clubbing, ROM intact, no edema. [] Neurologic: Alert and oriented X 3, normal motor function, normal sensory function, no focal deficits noted. Cranial nerves II-XII intact Psychologic: Affect normal, judgement normal, mood normal. [] (TIFFANIE FERNANDO APRN) Current Patient Data Vital Signs Vital Signs Date Time Temp Pulse Resp B/P (MAP) Pulse Ox O2 Delivery O2 Flow Rate FiO2 04/19/19 17:45 62 16 96 04/19/19 17:20 99.2 136/62 (86) Room Air 99.2 (LEE,Humagade ) Lab Values Laboratory Tests Test 04/19/19 18:09 White Blood Count 7.1 x10^3/uL (4.0-11.0) Red Blood Count 4.03 x10^6/uL (4.30-5.70) L Hemoglobin 12.8 g/dL (13.0-17.5) L Hematocrit 37.0 % (39.0-53.0) L Mean Corpuscular Volume 92 fL (79-100) Mean Corpuscular Hemoglobin 32 pg (25-35) Mean Corpuscular Hemoglobin Concent 35 g/dL (31-37) Red Cell Distribution Width 13.6 % (11.5-14.5) Platelet Count 182 x10^3/uL (140-400) Neutrophils (%) (Auto) 71 % (31-73) Lymphocytes (%) (Auto) 17 % (24-48) L Monocytes (%) (Auto) 7 % (0-9) Eosinophils (%) (Auto) 4 % (0-3) H Basophils (%) (Auto) 1 % (0-3) Neutrophils # (Auto) 5.0 x10^3/uL (1.8-7.7) Lymphocytes # (Auto) 1.2 x10^3/uL (1.0-4.8) Monocytes # (Auto) 0.5 x10^3/uL (0.0-1.1) Eosinophils # (Auto) 0.3 x10^3/uL (0.0-0.7) Basophils # (Auto) 0.1 x10^3/uL (0.0-0.2) Sodium Level 146 mmol/L (136-145) H Potassium Level 4.6 mmol/L (3.5-5.1) Chloride Level 110 mmol/L (98-107) H Carbon Dioxide Level 23 mmol/L (21-32) Anion Gap 13 (6-14) Blood Urea Nitrogen 39 mg/dL (8-26) H Creatinine 2.4 mg/dL (0.7-1.3) H Estimated GFR (Cockcroft-Gault) 25.7 BUN/Creatinine Ratio 16 (6-20) Glucose Level 102 mg/dL (70-99) H Calcium Level 9.1 mg/dL (8.5-10.1) Magnesium Level 2.1 mg/dL (1.8-2.4) Total Bilirubin 0.6 mg/dL (0.2-1.0) Aspartate Amino Transferase (AST) 12 U/L (15-37) L Alanine Aminotransferase (ALT) 17 U/L (16-63) Alkaline Phosphatase 110 U/L (46-116) Creatine Kinase 101 U/L (39-308) Creatine Kinase MB (Mass) 1.1 ng/mL (0.0-3.6) Creatine Kinase MB Relative Index 1.1 % (0-4) Troponin I Quantitative < 0.017 ng/mL (0.000-0.055) YU-Chh-A-Type Natriuretic Peptide 702 pg/mL (0-449) H Total Protein 6.8 g/dL (6.4-8.2) Albumin 3.7 g/dL (3.4-5.0) Albumin/Globulin Ratio 1.2 (1.0-1.7) Thyroid Stimulating Hormone (TSH) 2.077 uIU/mL (0.358-3.74) Laboratory Tests 04/19/19 18:09 Laboratory Tests 04/19/19 18:09 (PIPER LEE DO) EKG EKG [address] Wyatt sinus rhythm HR 64 no STEMI[] (TIFFANIE FERNANDO APRN) Radiology/Procedures Radiology/Procedures []PROCEDURE: PORTABLE CHEST 1V AP portable chest radiograph 04/19/2019 Clinical History: Dizziness. Two AP erect portable digital radiographs of the chest were obtained. Comparison study is dated 05/19/2018. The cardiac silhouette is normal in size. The thoracic aorta is tortuous. Atherosclerotic calcification of the thoracic aorta is seen. There is a small right pleural effusion. No acute pulmonary infiltrate is seen. No pneumothorax is noted. Degenerative changes are seen involving the thoracic spine and both shoulders. Impression: Small right pleural effusion. No acute pulmonary infiltrate is seen. Electronically signed by: Hay Davis MD (04/19/2019 9:04 PM) [facility] DICTATED and SIGNED BY: HAY DAVIS MD DATE: 04/19/192103 PROCEDURE: CT HEAD WO CONTRAST Exam: CT head INDICATION: Dizziness TECHNIQUE: Sequential axial images through the head were obtained without the administration of IV contrast. Comparisons: 01/30/2017 FINDINGS: No focal parenchymal lesion or hemorrhage is identified. There is no midline shift or sulcal effacement. Patchy hypodensities within the periventricular white matter which mildly progressed when compared to the prior study in 2017. No acute vascular territory infarction is identified. Paez-white distinction is preserved. The ventricular system is within normal limits without compression hydrocephalus. The basal cisterns are well maintained. The visualized portions of the paranasal sinuses and mastoid air cells are well-pneumatized. No acute fractures. IMPRESSION: Patchy hypodensity within the periventricular white matter which is progressed when compared to the study in 2017. This likely represents normal vessel ischemic change, age indeterminant however at least partly chronic. Exposure: One or more of the following in the visualized dose reduction techniques were utilized for this examination: 1. Automated exposure control 2. Adjustment of the MA and/or KV according to patient size Use of iterative of reconstructive technique Electronically signed by: Kush Wood MD (04/19/2019 6:33 PM) [facility] [place] DICTATED and SIGNED BY: KUSH WOOD MD DATE: 04/19/19 107 (TIFFANIE FERNANDO APRN) Course & Med Decision Making Course & Med Decision Making Pertinent Labs and Imaging studies reviewed. (See chart for details) This is a 88-year-old male patient who presents to the ED today with dizziness that has been going on for months worse when he is changing position especially from lying down to standing. CT of the head is negative for any acute findings, CBC no acute findings, CMP with creatinine of 2.4 and BUN of 39, this is around his baseline though after talking to Dr. Reich he felt to the number has gone up slightly comparing to the last time patient was seen in the PCPs office. He requested we admitted patient for acute on chronic renal failure and hydrate patient. (TIFFANIE FERNANDO APRN) Dragon Disclaimer Dragon Disclaimer This electronic medical record was generated, in whole or in part, using a voice recognition dictation system. (TIFFANIE FERNANDO APRN) NIHSS Administer stroke scale items in the order listed. Record performance in each category after each subscale exam. Do not go back and change scores. Follow directions provided for each exam technique. Scores should reflect what the patient does, not what the clinician thinks the patient can do. The clinician should record answers while administering the exam and work quickly. Except where indicated, the patient should not be coached (i.e., repeated requests to patient to make a special effort). 1a. Level of Consciousness: The pipefitter must choose a response if a full evaluation is prevented by such obstacles as an endotracheal tube, language barrier, orotracheal trauma/bandages. A 3 is scored only if the patien t makes no movement (other than reflexive posturing) in response to noxious stimulation. 0 = Alert; keenly responsive. 1 = Not alert; but arousable by minor stimulation to obey, answer, or respond. 2 = Not alert; requires repeated stimulation to attend, or is obtunded and requires strong or painful stimulation to make movements (not stereotyped). 3 = Responds only with reflex motor or autonomic effects or totally unresponsive, flaccid, and areflexic. 1b. LOC Questions: The patient is asked the month and his/her age. The answer must be correct - there is no partial credit for being close. Aphasic and stuporous patients who do not comprehend the questions will score 2. Patients unable to speak because of endotracheal intubation, orotracheal trauma, severe dysarthria from any cause, language barrier, or any other problem not secondary to aphasia are given a 1. It is important that only the initial answer be graded and that the examiner not "help" the patient with verbal or non-verbal cues. 0 = Answers both questions correctly. 1 = Answers one question correctly. 2 = Answers neither question correctly. 1c. LOC Commands: The patient is asked to open and close the eyes and then to joint machine operator and release the non-paretic hand. Substitute another one step command if the hands cannot be used. Credit is given if an unequivocal attempt is made but not completed due to weakness. If the patient does not respond to command, the task should be demonstrated to him or her (pantomime), and the result scored (i.e., follows none, one or two commands). Patients with trauma, amputation, or other physical impediments should be given suitable one-step commands. Only the first attempt is scored. 0 = Performs both tasks correctly. 1 = Performs one task correctly. 2 = Performs neither task correctly. 2. Best Gaze: Only horizontal eye movements will be tested. Voluntary or reflexive (oculocephalic) eye movements will be scored, but caloric testing is not done. If the patient has a conjugate deviation of the eyes that can be overcome by voluntary or reflexive activity, the score will be 1. If a patient has an isolated peripheral nerve paresis (CN III, IV or ), score a 1. Gaze is testable in all aphasic patients. Patients with ocular trauma, bandages, pre-existing blindness, or other disorder of visual acuity or walker should be tested with reflexive movements, and a choice made by the pipefitter. Establishing eye contact and then moving about the patient from side to side will occasionally clarify the presence of a partial gaze palsy. 0 = Normal. 1 = Partial gaze palsy; gaze is abnormal in one or both eyes, but forced deviation or total gaze paresis is not present. 2 = Forced deviation, or total gaze paresis not overcome by the oculocephalic maneuver. Interval: [ ] Baseline [ ] 2 hours post treatment [ ] 24 hours post onset of symptoms �20 minutes [ ] 7-10 days [ ] 3 months [ ] Other ( ) 3. Visual: Visual walker (upper and lower quadrants) are tested by confrontation, using finger counting or visual threat, as appropriate. Patients may be encouraged, but if they look at the side of the moving fingers appropriately, this can be scored as normal. If there is unilateral blindness or enucleation, visual walker in the remaining eye are scored. Score 1 only if a clear-cut asymmetry, including quadrantanopia, is found. If patient is blind from any cause, score 3. Double simultaneous stimulation is performed at this point. If there is extinction, patient receives a 1, and the results are used to respond to item 11. 0 = No visual loss. 1 = Partial hemianopia. 2 = Complete hemianopia. 3 = Bilateral hemianopia (blind including cortical blindness). 4. Facial Palsy: Ask - or use pantomime to encourage - the patient to show teeth or raise eyebrows and close eyes. Score symmetry of grimace in response to noxious stimuli in the poorly responsive or non-comprehending patient. If facial trauma/bandages, orotracheal tube, tape or other physical barriers obscure the face, these should be removed to the extent possible. 0 = Normal symmetrical movements. 1 = Minor paralysis (flattened nasolabial fold, asymmetry on smiling). 2 = Partial paralysis (total or near-total paralysis of lower face). 3 = Complete paralysis of one or both sides (absence of facial movement in the upper and lower face). 5. Motor Arm: The limb is placed in the appropriate position: extend the arms (palms down) 90 degrees (if sitting) or 45 degrees (if supine). Drift is scored if the arm falls before 10 seconds. The aphasic patient is encouraged using urgency in the voice and pantomime, but not noxious stimulation. Each limb is tested in turn, beginning with the non-paretic arm. Only in the case of amputation or joint fusion at the shoulder, the examiner should record the score as untestable (UN), and clearly write the explanation for this choice. 0 = No drift; limb holds 90 (or 45) degrees for full 10 seconds. 1 = Drift; limb holds 90 (or 45) degrees, but drifts down before full 10 seconds; does not hit bed or other support. 2 = Some effort against gravity; limb cannot get to or maintain (if cued) 90 (or 45) degrees, drifts down to bed, but has some effort against gravity. 3 = No effort against gravity; limb falls. 4 = No movement. UN = Amputation or joint fusion, explain: 5a. Left Arm 5b. Right Arm 6. Motor Leg: The limb is placed in the appropriate position: hold the leg at 30 degrees (always tested supine). Drift is scored if the leg falls before 5 seconds. The aphasic patient is encouraged using urgency in the voice and pantomime, but not noxious stimulation. Each limb is tested in turn, beginning with the non-paretic leg. Only in the case of amputation or joint fusion at the hip, the examiner should record the score as untestable (UN), and clearly write the explanation for this choice. 0 = No drift; leg holds 30-degree position for full 5 seconds. 1 = Drift; leg falls by the end of the 5-second period but does not hit bed. 2 = Some effort against gravity; leg falls to bed by 5 seconds, but has some effort against gravity. 3 = No effort against gravity; leg falls to bed immediately. 4 = No movement. UN = Amputation or joint fusion, explain: 6a. Left Leg 6b. Right Leg Interval: [ ] Baseline [ ] 2 hours post treatment [ ] 24 hours post onset of symptoms �20 minutes [ ] 7-10 days [ ] 3 months [ ] Other ( ) 7. Limb Ataxia: This item is aimed at finding evidence of a unilateral cerebellar lesion. Test with eyes open. In case of visual defect, ensure testing is done in intact visual field. The injvvc-ugfc-nlrtok and heel-fajardo tests are performed on both sides, and ataxia is scored only if present out of proportion to weakness. Ataxia is absent in the patient who cannot understand or is paralyzed. Only in the case of amputation or joint fusion, the examiner should record the score as untestable (UN), and clearly write the explanation for this choice. In case of blindness, test by having the patient touch nose from extended arm position. 0 = Absent. 1 = Present in one limb. 2 = Present in two limbs. UN = Amputation or joint fusion, explain: 8. Sensory: Sensation or grimace to pinprick when tested, or withdrawal from noxious stimulus in the obtunded or aphasic patient. Only sensory loss attributed to stroke is scored as abnormal and the examiner should test as many body areas (arms [not hands], legs, trunk, face) as needed to accurately check for hemisensory loss. A score of 2, "severe or total sensory loss," should only be given when a severe or total loss of sensation can be clearly demonstrated. Stuporous and aphasic patients will, therefore, probably score 1 or 0. The patient with brainstem stroke who has bilateral loss of sensation is scored 2. If the patient does not respond and is quadriplegic, score 2. Patients in a coma (item 1a=3) are automatically given a 2 on this item. 0 = Normal; no sensory loss. 1 = Mdsf-zi-ubruaitp sensory loss; patient feels pinprick is less sharp or is dull on the affected side; or there is a loss of superficial pain with pinprick, but patient is aware of being touched. 2 = Severe to total sensory loss; patient is not aware of being touched in the face, arm, and leg. 9. Best Language: A great deal of information about comprehension will be obtained during the preceding sections of the examination. For this scale item, the patient is asked to describe what is happening in the attached picture, to name the items on the attached naming sheet and to read from the attached list of sentences. Comprehension is judged from responses here, as well as to all of the commands in the preceding general neurological exam. If visual loss interferes with the tests, ask the patient to identify objects placed in the hand, repeat, and produce speech. The intubated patient should be asked to write. The patient in a coma (item 1a=3) will automatically score 3 on this item. The examiner must choose a score for the patient with stupor or limited cooperation, but a score of 3 should be used only if the patient is mute and follows no one-step commands. 0 = No aphasia; normal. 1 = Dggc-ie-stmcsgeh aphasia; some obvious loss of fluency or facility of comprehension, without significant limitation on ideas expressed or form of expression. Reduction of speech and/or comprehension, however, makes conversation about provided materials difficult or impossible. For example, in conversation about provided materials, examiner can identify picture or naming card content from patient's response. 2 = Severe aphasia; all communication is through fragmentary expression; great need for inference, questioning, and guessing by the listener. Range of inform ation that can be exchanged is limited; listener carries burden of communication. Examiner cannot identify materials provided from patient response. 3 = Mute, global aphasia; no usable speech or auditory comprehension. 10. Dysarthria: If patient is thought to be normal, an adequate sample of speech must be obtained by asking patient to read or repeat words from the attached list. If the patient has severe aphasia, the clarity of articulation of spontaneous speech can be rated. Only if the patient is intubated or has other physical barriers to producing speech, the examiner should record the score as untestable (UN), and clearly write an explanation for this choice. Do not tell the patient why he or she is being tested. 0 = Normal. 1 = Piun-jy-fdsjicvh dysarthria; patient slurs at least some words and, at worst, can be understood with some difficulty. 2 = Severe dysarthria; patient's speech is so slurred as to be unintelligible in the absence of or out of proportion to any dysphasia, or is mute/anarthric. UN = Intubated or other physical barrier, explain: Interval: [ ] Baseline [ ] 2 hours post treatment [ ] 24 hours post onset of symptoms �20 minutes [ ] 7-10 days [ ] 3 months [ ] Other ( ) 11. Extinction and Inattention (formerly Neglect): Sufficient information to identify neglect may be obtained during the prior testing. If the patient has a severe visual loss preventing visual double simultaneous stim ulation, and the cutaneous stimuli are normal, the score is normal. If the patient has aphasia but does appear to attend to both sides, the score is normal. The presence of visual spatial neglect or anosagnosia may also be taken as evidence of abnormality. Since the abnormality is scored only if present, the item is never untestable. 0 = No abnormality. 1 = Visual, tactile, auditory, spatial, or personal inattention or extinction to bilateral simultaneous stimulation in one of the sensory modalities. 2 = Profound corazon-inattention or extinction to more than one modality; does not recognize own hand or orients to only one side of space. (TIFFANIE FERNANDO APRN) NIHSS Stroke Scale NIH Stroke Scale: NIH Stroke Scale Response (Comments) Value Level of Consciousness: 0 Alert/Responsive 0 LOC Questions: 0 Answers both correctly 0 LOC Commands: 0 Performs both tasks 0 Best Gaze: 0 Normal 0 Visual: 0 No visual loss 0 Facial Palsy: 0 Normal, symmetrical 0 Motor - Left Arm 0 No drift 0 Motor - Right Arm 0 No drift 0 Motor - Left Leg 0 No drift 0 Motor: Right Leg 0 No drift 0 Limb Ataxia: 0 Absent 0 Sensory: 0 No loss 0 Best Language: 0 Normal 0 Dysathria: 0 Normal 0 Extinction and Inattention: 0 Normal 0 Total 0 Departure Departure Impression: Primary Impression: Acute on chronic renal failure Additional Impression: Dizziness Disposition: ADMITTED INPATIENT Condition: STABLE Referrals: UNKNOWN PCP NAME (PCP) Attending Signature Attending Signature I have reviewed the PA/FIELD TECHNICAL SPECIALIST's note and plan of care. I was available for consultation as needed during the patient's visit in the emergency department. I agree with the clinical impression, plan, and disposition. (PIPER LEE DO) Problem Qualifiers Primary Impression: Acute on chronic renal failure Acute renal failure type: unspecified Chronic kidney disease stage: unspecified stage Qualified Codes: N17.9 - Acute kidney failure, unspecified; N18.9 - Chronic kidney disease, unspecified TIFFANIE FERNANDO APRN Apr 19, 2019 21:31 PIPER LEE DO Apr 20, 2019 04:14
[2019-04-19 21:50] VITALS: BP 152/56
--- NOTE | 2019-04-19 22:00 | NUR ---
The patient, PAULA DAILY, 88 y/o, M admitted by PAVAN LEONG MD, was given written information regarding hospital policies, unit procedures and contact persons. Patient arrived to room via wheelchair assisted by ED staff member. Valuables were checked and noted. Patient stated the he wanted his keys and wallet locked in the safe by security, this RN will call and request for them to come up. Patient denies any other needs at this time. This RN will continue to monitor the patient.
[2019-04-20 03:00] VITALS: BP 144/96
--- NOTE | 2019-04-20 05:29 | EKG ---
[facility] [address] [place] [address] Test Date: 2019-04-19 Test Time: 17:52:25 Pat Name: PAULA DAILY Department: Room: Gender: M Passenger Locomotive Engineer: : [id number] Requested By: TIFFANIE FERNANDO Order Number: [id number] Reading MD: Measurements Intervals [place] Rate: 64 P: -90 RI: 194 QRS: -1 QRSD: 84 T: 41 QT: 386 QTc: 402 Interpretive Statements SINUS RHYTHM LEFTWARD AXIS OTHERWISE NORMAL ECG RI6.01 Unconfirmed report No previous ECG available for comparison
[2019-04-20 07:00] VITALS: BP 163/69
[2019-04-20 08:17] LABS: BASO # 0.1 x10^3/uL (0.0-0.2); BASO % 1 % (0-3); EOS # 0.6 x10^3/uL (0.0-0.7); EOS % 8 % (0-3); HEMATOCRIT 39.1 % (39.0-53.0); HEMOGLOBIN 13.5 g/dL (13.0-17.5); LYMPH % 29 % (24-48); MEAN CORPUSCULAR HEMOGLOBIN 32 pg (25-35); MEAN CORPUSCULAR HGB CONC 35 g/dL (31-37); MEAN CORPUSCULAR VOLUME 92 fL (79-100); MONO # 0.6 x10^3/uL (0.0-1.1); MONO % 10 % (0-9); NEUT # 3.5 x10^3/uL (1.8-7.7); NEUT % 52 % (31-73); PLATELET COUNT 181 x10^3/uL (140-400); RED BLOOD COUNT 4.23 x10^6/uL (4.30-5.70); RED CELL DISTRIBUTION WIDTH 13.5 % (11.5-14.5); WHITE BLOOD COUNT 6.7 x10^3/uL (4.0-11.0)
[2019-04-20 08:39] LABS: CALCIUM 8.9 mg/dL (8.5-10.1); CREATININE 2.1 mg/dL (0.7-1.3)
[2019-04-20 08:50] LABS: POTASSIUM 4.1 mmol/L (3.5-5.1)
[2019-04-20 11:00] VITALS: BP 131/50
[2019-04-20] MEDS ORDERED: IV NORMAL SALINE 1000ML BAG 1,000 ML IV SCH (12:15)
--- NOTE | 2019-04-20 13:23 | HP ---
ADMIT DATE: 04/19/2019 CHIEF COMPLAINT: Dizziness. HISTORY OF PRESENT ILLNESS AND HOSPITAL COURSE: The patient is an 88-year-old male who lives by himself states that he began having difficulty walking and bumping into things and feeling dizzy when he stood up. He came to the Emergency Room and negative CT of the head and minimal findings. Upon evaluation of his laboratories, he was found to be in acute renal failure with a BUN of 39 and a creatinine of 2.4, and the baseline creatinine of 2. Sodium was also elevated. Further history, the patient states that for the last several days, he has been without electricity and his home had been hot. This may have contributed to his dehydration and renal failure, as well as causing his current symptomatology. Due to inability to care for himself and ongoing weakness, the patient was admitted to the hospital for PT, OT evaluation and treatment, and IV fluids. PAST MEDICAL HISTORY: Significant for hypertension. The patient takes amlodipine 10 mg daily. PAST SURGICAL HISTORY: Significant for rotator cuff tear surgery in 2001. FAMILY HISTORY: Noncontributory. Mother and father both . SOCIAL HISTORY: The patient lives by himself in a duplex. The patient is a previous smoker, but has not smoked for over 10 years. The patient does not use alcohol. ALLERGIES: The patient has no known drug allergies. REVIEW OF SYSTEMS: The patient was doing well until recently when he began having dizziness. The patient's only previous hospitalization was in 2018 with pneumonia. PHYSICAL EXAMINATION: GENERAL: He is a well-nourished, well-developed, thin male, in no apparent distress. On my exam, he is alert and oriented. HEENT: Benign. NECK: Supple. CARDIAC: Regular rate and rhythm. LUNGS: Clear. ABDOMEN: Soft, nontender, without masses. EXTREMITIES: There are 2+ pulses, no edema. NEUROLOGIC: Showed again no unilateral findings. ASSESSMENT: 1. Heat stroke. 2. Acute on chronic renal failure. 3. Hypertension. 4. Small right-sided pleural effusion on chest x-ray. PLAN: To proceed with PT and OT modalities to assess the patient's safety and physical therapy needs. Check serial BUN and creatinine. Monitor electrolytes, proceed with IV fluid resuscitation and monitor care needs. Consult social work to reevaluate restoring electricity to the patient's home. PIPER CASTELLANO MD DR: Kamryn JOB#: [id number] / [id number]
[2019-04-20] MEDS: ENOXAPARIN 30 MG/0.3 ML SYRINGE. SQ SCH (14:10)
[2019-04-20 15:00] VITALS: BP 134/52
[2019-04-20 19:00] VITALS: BP 164/66
[2019-04-20] MEDS ORDERED: AMLO10TA8 PO (19:40)
[2019-04-20 23:00] VITALS: BP 160/71
[2019-04-21 03:00] VITALS: BP 152/57
[2019-04-21 07:00] VITALS: BP 174/76
[2019-04-21 09:38] LABS: BASO # 0.1 x10^3/uL (0.0-0.2); BASO % 1 % (0-3); EOS # 0.6 x10^3/uL (0.0-0.7); EOS % 9 % (0-3); HEMATOCRIT 40.2 % (39.0-53.0); HEMOGLOBIN 13.8 g/dL (13.0-17.5); LYMPH # 1.6 x10^3/uL (1.0-4.8); LYMPH % 24 % (24-48); MEAN CORPUSCULAR HEMOGLOBIN 32 pg (25-35); MEAN CORPUSCULAR HGB CONC 34 g/dL (31-37); MEAN CORPUSCULAR VOLUME 92 fL (79-100); MONO # 0.6 x10^3/uL (0.0-1.1); MONO % 8 % (0-9); NEUT % 58 % (31-73); PLATELET COUNT 179 x10^3/uL (140-400); RED BLOOD COUNT 4.36 x10^6/uL (4.30-5.70); RED CELL DISTRIBUTION WIDTH 13.9 % (11.5-14.5); WHITE BLOOD COUNT 6.9 x10^3/uL (4.0-11.0)
[2019-04-21 09:58] LABS: CALCIUM 8.8 mg/dL (8.5-10.1); GFR 31.8; POTASSIUM 4.1 mmol/L (3.5-5.1)
[2019-04-21 10:47] VITALS: BP 118/55
--- NOTE | 2019-04-21 11:14 | NUR ---
SW consulted for assisting with [facility]. Chart reviewed and discussed with RN. Pt working with OT. Will meet with pt after Therapy completes assessment.
--- NOTE | 2019-04-21 11:50 | RAD ---
CHEST AP ONLY Clinical indications: Pleural effusion. Follow up study. Comparison April 19, 2019. Findings: Small right-sided pleural effusion is stable. No new lung infiltrate or pulmonary edema or pneumothorax is seen. The heart size, pulmonary vasculature, mediastinum and both clara are stable. Impression: Stable small right-sided pleural effusion. Electronically signed by: Landon Haile MD (04/21/2019 11:47 AM) [facility]
--- NOTE | 2019-04-21 12:39 | PDOC ---
PROGRESS NOTES Subjective Subjective Patient feeling better. PT recc SNU care Objective Objective Vital Signs Date Time Temp Pulse Resp B/P (MAP) Pulse Ox O2 Delivery O2 Flow Rate FiO2 04/21/19 10:47 98.2 62 16 118/55 (76) 97 Room Air 98.2 Intake and Output 04/21/19 07:00 Intake Total 820 ml Balance 820 ml Intake Oral 820 ml # Voids 9 # Bowel Movements 4 Physical Exam Abdomen: Normal bowel sounds Heart: Regular rate Extremities: No edema General: Alert Lungs: Clear to auscultation Assessment Assessment Problems Medical Problems: (1) Acute on chronic renal failure Status: Acute (2) Heat stroke Status: Acute (3) HTN (hypertension) Status: Chronic (4) Pleural effusion on right Status: Acute 1. Heat stroke. 2. Acute on chronic renal failure. 3. Hypertension. Plan Plan of Care To SNU in AM continue PT/OT Comment Review of Relevant I have reviewed the following items funmilayo (where applicable) has been applied. Labs Laboratory Tests Test 04/19/19 18:09 04/20/19 07:15 04/21/19 09:15 White Blood Count 7.1 x10^3/uL (4.0-11.0) 6.7 x10^3/uL (4.0-11.0) 6.9 x10^3/uL (4.0-11.0) Red Blood Count 4.03 x10^6/uL (4.30-5.70) 4.23 x10^6/uL (4.30-5.70) 4.36 x10^6/uL (4.30-5.70) Hemoglobin 12.8 g/dL (13.0-17.5) 13.5 g/dL (13.0-17.5) 13.8 g/dL (13.0-17.5) Hematocrit 37.0 % (39.0-53.0) 39.1 % (39.0-53.0) 40.2 % (39.0-53.0) Mean Corpuscular Volume 92 fL (79-100) 92 fL (79-100) 92 fL (79-100) Mean Corpuscular Hemoglobin 32 pg (25-35) 32 pg (25-35) 32 pg (25-35) Mean Corpuscular Hemoglobin Concent 35 g/dL (31-37) 35 g/dL (31-37) 34 g/dL (31-37) Red Cell Distribution Width 13.6 % (11.5-14.5) 13.5 % (11.5-14.5) 13.9 % (11.5-14.5) Platelet Count 182 x10^3/uL (140-400) 181 x10^3/uL (140-400) 179 x10^3/uL (140-400) Neutrophils (%) (Auto) 71 % (31-73) 52 % (31-73) 58 % (31-73) Lymphocytes (%) (Auto) 17 % (24-48) 29 % (24-48) 24 % (24-48) Monocytes (%) (Auto) 7 % (0-9) 10 % (0-9) 8 % (0-9) Eosinophils (%) (Auto) 4 % (0-3) 8 % (0-3) 9 % (0-3) Basophils (%) (Auto) 1 % (0-3) 1 % (0-3) 1 % (0-3) Neutrophils # (Auto) 5.0 x10^3/uL (1.8-7.7) 3.5 x10^3/uL (1.8-7.7) 4.0 x10^3/uL (1.8-7.7) Lymphocytes # (Auto) 1.2 x10^3/uL (1.0-4.8) 2.0 x10^3/uL (1.0-4.8) 1.6 x10^3/uL (1.0-4.8) Monocytes # (Auto) 0.5 x10^3/uL (0.0-1.1) 0.6 x10^3/uL (0.0-1.1) 0.6 x10^3/uL (0.0-1.1) Eosinophils # (Auto) 0.3 x10^3/uL (0.0-0.7) 0.6 x10^3/uL (0.0-0.7) 0.6 x10^3/uL (0.0-0.7) Basophils # (Auto) 0.1 x10^3/uL (0.0-0.2) 0.1 x10^3/uL (0.0-0.2) 0.1 x10^3/uL (0.0-0.2) Sodium Level 146 mmol/L (136-145) 142 mmol/L (136-145) 143 mmol/L (136-145) Potassium Level 4.6 mmol/L (3.5-5.1) 4.1 mmol/L (3.5-5.1) 4.1 mmol/L (3.5-5.1) Chloride Level 110 mmol/L (98-107) 106 mmol/L (98-107) 108 mmol/L (98-107) Carbon Dioxide Level 23 mmol/L (21-32) 25 mmol/L (21-32) 24 mmol/L (21-32) Anion Gap 13 (6-14) 11 (6-14) 11 (6-14) Blood Urea Nitrogen 39 mg/dL (8-26) 37 mg/dL (8-26) 35 mg/dL (8-26) Creatinine 2.4 mg/dL (0.7-1.3) 2.1 mg/dL (0.7-1.3) 2.0 mg/dL (0.7-1.3) Estimated GFR (Cockcroft-Gault) 25.7 30.0 31.8 BUN/Creatinine Ratio 16 (6-20) Glucose Level 102 mg/dL (70-99) 103 mg/dL (70-99) 124 mg/dL (70-99) Calcium Level 9.1 mg/dL (8.5-10.1) 8.9 mg/dL (8.5-10.1) 8.8 mg/dL (8.5-10.1) Magnesium Level 2.1 mg/dL (1.8-2.4) Total Bilirubin 0.6 mg/dL (0.2-1.0) Aspartate Amino Transf (AST/SGOT) 12 U/L (15-37) Alanine Aminotransferase (ALT/SGPT) 17 U/L (16-63) Alkaline Phosphatase 110 U/L (46-116) Creatine Kinase 101 U/L (39-308) Creatine Kinase MB (Mass) 1.1 ng/mL (0.0-3.6) Creatine Kinase MB Relative Index 1.1 % (0-4) Troponin I Quantitative < 0.017 ng/mL (0.000-0.055) YQ-[id number]-T-Type Natriuretic Peptide 702 pg/mL (0-449) Total Protein 6.8 g/dL (6.4-8.2) Albumin 3.7 g/dL (3.4-5.0) Albumin/Globulin Ratio 1.2 (1.0-1.7) Thyroid Stimulating Hormone (TSH) 2.077 uIU/mL (0.358-3.74) Laboratory Tests Test 04/21/19 09:15 White Blood Count 6.9 x10^3/uL (4.0-11.0) Red Blood Count 4.36 x10^6/uL (4.30-5.70) Hemoglobin 13.8 g/dL (13.0-17.5) Hematocrit 40.2 % (39.0-53.0) Mean Corpuscular Volume 92 fL (79-100) Mean Corpuscular Hemoglobin 32 pg (25-35) Mean Corpuscular Hemoglobin Concent 34 g/dL (31-37) Red Cell Distribution Width 13.9 % (11.5-14.5) Platelet Count 179 x10^3/uL (140-400) Neutrophils (%) (Auto) 58 % (31-73) Lymphocytes (%) (Auto) 24 % (24-48) Monocytes (%) (Auto) 8 % (0-9) Eosinophils (%) (Auto) 9 % (0-3) Basophils (%) (Auto) 1 % (0-3) Neutrophils # (Auto) 4.0 x10^3/uL (1.8-7.7) Lymphocytes # (Auto) 1.6 x10^3/uL (1.0-4.8) Monocytes # (Auto) 0.6 x10^3/uL (0.0-1.1) Eosinophils # (Auto) 0.6 x10^3/uL (0.0-0.7) Basophils # (Auto) 0.1 x10^3/uL (0.0-0.2) Sodium Level 143 mmol/L (136-145) Potassium Level 4.1 mmol/L (3.5-5.1) Chloride Level 108 mmol/L (98-107) Carbon Dioxide Level 24 mmol/L (21-32) Anion Gap 11 (6-14) Blood Urea Nitrogen 35 mg/dL (8-26) Creatinine 2.0 mg/dL (0.7-1.3) Estimated GFR (Cockcroft-Gault) 31.8 Glucose Level 124 mg/dL (70-99) Calcium Level 8.8 mg/dL (8.5-10.1) Medications Current Medications Meclizine HCl (Antivert) 25 mg 1X ONCE PO Last administered on 04/19/19at 18:27; Start 04/19/19 at 18:15; Stop 04/19/19 at 18:16; Status DC Ondansetron HCl (Zofran) 4 mg PRN Q8HRS PRN IV NAUSEA/VOMITING; Start 04/19/19 at 21:00; Stop 04/20/19 at 20:59; Status DC Sodium Chloride 1,000 ml @ 75 mls/hr 1X ONCE IV Last administered on 04/20/19at 00:37; Start 04/19/19 at 21:00; Stop 04/20/19 at 10:19; Status DC Meclizine HCl (Antivert) 25 mg PRN TID PRN PO DIZZINESS; Start 04/19/19 at 21:00 Sodium Chloride 1,000 ml @ 100 mls/hr Q10H IV Last administered on 04/20/19at 14:02; Start 04/20/19 at 12:15; Stop 04/20/19 at 22:14; Status DC Enoxaparin Sodium (Lovenox 30mg Syringe) 30 mg Q24H SQ Last administered on 04/20/19at 14:10; Start 04/20/19 at 13:00 Active Scripts Active Reported Amlodipine Besylate 10 Mg Tablet 10 Mg PO DAILY [no home medications] Vitals/I & O Vital Sign - Last 24 Hours 04/20/19 04/20/19 04/20/19 04/20/19 15:00 19:00 20:00 23:00 Temp 98.0 98.0 97.9 98.0 98.0 97.9 Pulse 63 61 61 Resp 18 18 18 B/P (MAP) 134/52 (79) 164/66 (98) 160/71 (100) Pulse Ox 96 95 95 O2 Delivery Room Air Room Air Room Air Room Air 04/21/19 04/21/19 04/21/19 03:00 07:00 10:47 Temp 98.0 97.6 98.2 98.0 97.6 98.2 Pulse 63 60 62 Resp 18 14 16 B/P (MAP) 152/57 (88) 174/76 (108) 118/55 (76) Pulse Ox 96 96 97 O2 Delivery Room Air Room Air Room Air Intake and Output 04/20/19 04/20/19 04/21/19 15:00 23:00 07:00 Intake Total 700 ml 120 ml Balance 700 ml 120 ml PIPER CASTELLANO MD Apr 21, 2019 12:39
--- NOTE | 2019-04-21 12:52 | SNU/HH DC ---
DISCHARGE ORDERS DISCHARGE INFORMATION: DISCHARGE DATE: Apr 21, 2019 FINAL DIAGNOSIS Problems Medical Problems: (1) Acute on chronic renal failure Status: Acute (2) Heat stroke Status: Acute (3) HTN (hypertension) Status: Chronic (4) Pleural effusion on right Status: Acute CONDITION ON DISCHARGE: Stable CODE STATUS: Code Status: Full GROUP HOME: SNF STAY <30 DAYS: Yes POST DISCHARGE ORDERS: ACTIVITY ORDERS: Resume previous activity WEIGHT BEARING STATUS: No restrictions DIET AFTER DISCHARGE: Low Sodium 2 gm CHECKS AFTER DISCHARGE: CHECKS AFTER DISCHARGE: Check blood press - daily TREATMENT/EQUIPMENT ORDERS: Physical Therapy For: Evalulation/Treatment Occupational Therapy For: Evaluation/Treatment DISCHARGE MEDICATIONS: Home Meds Discontinued Reported Medications Amlodipine Besylate (AMLODIPINE BESYLATE) 10 Mg Tablet, 10 MG PO DAILY for HTN, TAB 04/20/19 [no home medications] No Conflict Check 05/19/18 PIPER CASTELLANO MD Apr 21, 2019 12:52
[2019-04-21] MEDS: ENOXAPARIN 30 MG/0.3 ML SYRINGE. SQ SCH (13:00)
[2019-04-21 15:00] VITALS: BP 137/56
--- NOTE | 2019-04-21 16:23 | NUR ---
AMI following pt. AMI phoned Valorie at [facility] and left a voice mail requesting a call back. Pt states he had too much medical bills and forgot he was not paying for [facility]. Pt states he was never and does not have kids. Patient drives to [employer] to buy/eat his meals. Pt states he plans to make payment by 04/29 when he receives his SSI. Discussed about SNU and pt chose [facility]. Referral faxed and pt acceptance/admission. Plan 1. Will f/u with Manasa at [facility] tomorrow, 2. Anticipate dc to [facility] tomorrow. D/w RN.
[2019-04-21 19:00] VITALS: BP 138/57
[2019-04-21 23:00] VITALS: BP 177/60
[2019-04-22 03:00] VITALS: BP 155/72
[2019-04-22 07:00] VITALS: BP 149/60
--- NOTE | 2019-04-22 09:12 | NUR ---
SW following pt. Pt has been accepted at [facility]. AMI arranged transport via central transport at 1000. D/w Ann sterling. Discussed with SCOOTER.
--- NOTE | 2019-04-22 11:41 | NUR ---
Discharge Note: PAULA DAILY [address] Discharge instructions and discharge home medications reviewed with Other facility and a copy given. All questions have been answered and understanding verbalized. Report was called to SCOOTER Suarez at [facility]. The following instructions and handouts were given: Discharge Instructions, Stopped Medications. Discontinued lines and drains: Patient no longer had IV access at time of discharge Patient discharged to [facility] via [facility]
== END 2019-04-22 10:15 | DRG 683 ==
LOC: ER 16:58 → 5 SOUTH 19:29
PROVIDERS: ADMIT Family Medicine; ATTEND Family Medicine
DX: N17.9 Acute kidney failure, unspecified (principal); T67.0XXA Heatstroke and sunstroke, initial encounter; J90 Pleural effusion, not elsewhere classified; E86.0 Dehydration; I12.9 Hypertensive chronic kidney disease with stage 1 through stage 4 chronic kidney disease, or unspecified chronic kidney disease; N18.9 Chronic kidney disease, unspecified; Y93.89 Activity, other specified; Y92.89 Other specified places as the place of occurrence of the external cause; Y99.8 Other external cause status; X30.XXXA Exposure to excessive natural heat, initial encounter; Z87.891 Personal history of nicotine dependence
CPT/HCPCS: 36415; 70450; 71045; 80048; 80053; 82553; 83735; 83880; 84443; 84484; 85025; 93005; J1650; J7030; J8597; 97110; 99285-25; G0378